=== PATIENT | female | born 1955 | race Caucasian/White ===

== ENCOUNTER 2020-02-25 12:50 | Emergency (ER) | payer OTHER ==
--- NOTE | 2020-02-25 14:06 | RAD REPORT ---
EXAM DESCRIPTION: RAD - Chest Single View - 02/25/2020 2:01 pm CLINICAL HISTORY: weakness, lethargy, chest discomfort COMPARISON: October 31, 2019 TECHNIQUE: AP portable chest image was obtained 02/25/2020 2:01 pm . FINDINGS: Lung volumes are decreased compared to the prior study. Right base atelectasis is present. Right base costophrenic angle blunting is present believed be chronic. No peripheral mass consolidat ion confirmed. Heart and vasculature are normal. No measurable pleural effusion and no pneumothorax. No acute bony abnormality seen. No acute aortic findings suspected. IMPRESSION: No acute cardiopulmonary process. No significant change from comparison.
[2020-02-25 14:29] LABS: Absolute Lymphocytes (CBC) 1.2 K/uL (0.7-4.9); Basophils % 0.7 % (0-1.3); Hematocrit 41.8 % (36.0-45.0); Lymphocytes % 15.5 % (15.3-44.8); MPV 8.6 fL (7.6-11.3); RBC Red Blood Cell Count 4.75 M/uL (3.86-4.86)
[2020-02-25 14:30] LABS: Protime INR 0.92
[2020-02-25 14:41] LABS: ALT/SGPT 50 U/L (12-78); AST/SGOT 36 U/L (15-37); Albumin 4.1 g/dL (3.4-5.0); Alkaline Phosphatase 107 U/L (45-117); BUN Blood Urea Nitrogen 10 mg/dL (7-18); Bicarbonate 31 mmol/L (21-32); Bilirubin Direct < 0.1 mg/dL (0-0.2); Bilirubin Total 0.2 mg/dL (0.2-1.0); Glucose Level 77 mg/dL (74-106); NT PRO-BNP 228 pg/mL (<125); Potassium 4.1 mmol/L (3.5-5.1); Protein, Total 8.1 g/dL (6.4-8.2); Sodium Level 132 mmol/L (136-145); Troponin (Emerg Dept Use Only) < 0.02 ng/mL (0.0-0.045)
--- NOTE | 2020-02-25 15:43 | RAD REPORT ---
EXAM DESCRIPTION: CT - Head Brain Wo Cont - 02/25/2020 3:37 pm CLINICAL HISTORY: WEAKNESS COMPARISON: No comparisons TECHNIQUE: Axial 5 mm thick images of the head were obtained without IV contrast. All CT scans are performed using dose optimization technique as appropriate and may include automated exposure control or mA/KV adjustment according to patient size. FINDINGS: No intracranial hemorrhage, mass, edema or shift of mid-line structures. No acute infarcti on changes seen. No abnormal extra-axial fluid collections. Ventricles are normal. Mastoid air cells and visualized portions of the paranasal sinuses are clear. No acute bony findings. IMPRESSION: Negative non-contrast CT head examination.
--- NOTE | 2020-02-25 16:13 | ER ---
Nurse's Notes [facility] Name: Audrey Rushing Age: 64 yrs Sex: Female : 1955 Arrival Date: 02/25/2020 Time: 12:52 Bed 5 Private MD: Diagnosis: Malaise and fatigue Presentation: 02/24 13:08 Chief complaint: Patient states: Feeling lethargic, nausea after eating, denies fever ph or pain, reports that symptoms began last night. Coronavirus screen: Client denies travel out of the [place] in the last 14 days. At this time, the client does not indicate any symptoms associated with coronavirus-19. Ebola Screen: No symptoms or risks identified at this time. Initial Sepsis Screen: Does the patient meet any 2 criteria? No. Patient's initial sepsis screen is negative. Does the patient have a suspected source of infection? No. Patient's initial sepsis screen is negative. Risk Assessment: Do you want to hurt yourself or someone else? Patient reports no desire to harm self or others. Onset of symptoms was February 25, 2020. 13:08 Method Of Arrival: Ambulatory ph 13:08 Acuity: DHEERAJ 3 ph Historical: - Allergies: 13:17 TETRACYCLINES; ph 13:17 Demerol; ph - Home Meds: 13:17 Strattera oral oral [Active]; Invega oral oral [Active]; ph - PMHx: 13:17 Bipolar disorder; ph - Immunization history:: Adult Immunizations unknown. - Social history:: Smoking status: Patient reports the use of cigarette tobacco products, denies chronic smoking, but will smoke occasionally. Screenin:14 Abuse screen: Denies threats or abuse. Denies injuries from another. Nutritional ph screening: No deficits noted. Tuberculosis screening: No symptoms or risk factors identified. Fall Risk None identified. Assessment: 13:54 General: Appears in no apparent distress. comfortable, slender, well groomed, Behavior ph is calm, cooperative, appropriate for age, Reports fatigue for 12-24 hours, Denies fever. Pain: Denies pain. Neuro: Level of Consciousness is awake, alert, obeys commands, Oriented to person, place, time, situation. Cardiovascular: Reports fatigue, lightheadedness, nausea, Denies chest pain, palpitations, shortness of breath, vomiting, Capillary refill < 3 seconds in bilateral fingers Patient's skin is warm and dry. Respiratory: Airway is patent Respiratory effort is even, unlabored, Respiratory pattern is regular, symmetrical. GI: Abdomen is flat, non-distended, Reports intolerance of food, nausea, Patient currently denies abdominal pain, diarrhea, vomiting. : No signs and/or symptoms were reported regarding the genitourinary system. Derm: Skin is intact, Skin is pink, warm \T\ dry. Musculoskeletal: Circulation, motion, and sensation intact. Range of motion: intact in all extremities. 14:30 Reassessment: Patient appears in no apparent distress at this time. Patient and/or ph family updated on plan of care and expected duration. Pain level reassessed. Patient is alert, oriented x 3, equal unlabored respirations, skin warm/dry/pink. Vital Signs: 13:08 BP 147 / 104; Pulse 76; Resp 16; Temp 97.0; Pulse Ox 100% on R/A; Weight 61.23 kg; ph Height 5 ft. 3 in. (160.02 cm); 14:31 BP 133 / 102; Pulse 75; Resp 18; Pulse Ox 98% on R/A; ph 15:59 BP 133 / 93; Pulse 76; Resp 18; Pulse Ox 99% on R/A; ph 13:08 Body Mass Index 23.91 (61.23 kg, 160.02 cm) ph ED Course: 12:52 Patient arrived in ED. ds1 13:06 Nahum Allen PA is PHCP. [facility] 13:06 Alex Leal MD is Attending Physician. [facility] 13:08 Gail Gleason, DARREN is Primary Nurse. ph 13:14 Triage completed. ph 13:15 Patient has correct armband on for positive identification. Bed in low position. Call ph light in reach. Side rails up X 1. Pulse ox on. NIBP on. Door closed. Warm blanket given. Head of bed elevated. 13:15 Arm band placed on Patient placed in an exam room. ph 14:01 XRAY Chest (1 view) In Process Unspecified. EDMS 14:15 Urine collected: clean catch specimen, clear, EKG done, by ED staff, reviewed by Nahum Bernadine NAYAK. 14:15 Initial lab(s) drawn, by me, sent to lab. Inserted saline lock: 22 gauge in right ph forearm, using aseptic technique. Blood collected. 15:37 CT Head Brain wo Cont In Process Unspecified. EDMS 16:01 No provider procedures requiring assistance completed. ph 16:39 IV discontinued, intact, bleeding controlled, No redness/swelling at site. Pressure ph dressing applied. Administered Medications: No medications were administered Outcome: 16:13 Discharge ordered by . [facility] 16:39 Discharged to home ambulatory. ph 16:39 Condition: good 16:39 Discharge instructions given to patient, Instructed on discharge instructions, follow up and referral plans. Demonstrated understanding of instructions, follow-up care. 16:39 Patient left the ED. ph Signatures: Dispatcher [employer] EDMS Nahum Allen PA PA jmm Sanford, Demi ds1 Gail Gleason RN RN Francisca Carter 3 Corrections: (The following items were deleted from the chart) 14:31 14:30 BP 132 / 78; Pulse 71bpm; Resp 18bpm; Pulse Ox 99% RA; Temp 97.2F; ph ph
--- NOTE | 2020-02-25 16:13 | EDPHYS ---
Physician Documentation [facility] Name: Audrey Rushing Age: 64 yrs Sex: Female : 1955 Arrival Date: 02/25/2020 Time: 12:52 Bed 5 Private MD: ED Physician Alex Leal HPI: 02/24 13:43 This 64 yrs old Female presents to ER via Ambulatory with complaints of jmm lethargic, Cant Eat. 13:43 This is a 64 year old female with a history of bipolar disorder that presents to the ED jm with complaints of generalized weakness, decreased appetite. Patient denies unilateral weakness, chest pain, shortness of breath, abdominal pain, or dysuria. . Onset: The symptoms/episode began/occurred gradually, last night. The patient has not experienced similar symptoms in the past. Historical: - Allergies: 13:17 TETRACYCLINES; ph 13:17 Demerol; ph - Home Meds: 13:17 Strattera oral oral [Active]; Invega oral oral [Active]; ph - PMHx: 13:17 Bipolar disorder; ph - Immunization history:: Adult Immunizations unknown. - Social history:: Smoking status: Patient reports the use of cigarette tobacco products, denies chronic smoking, but will smoke occasionally. ROS: 13:43 Constitutional: Positive for fatigue, malaise. jmm 13:43 Respiratory: Negative for cough, shortness of breath, wheezing. 13:43 Abdomen/GI: Negative for abdominal pain, nausea and vomiting. 13:43 Neuro: Positive for weakness. 13:43 All other systems are negative. Exam: 13:43 Constitutional: This is a well developed, well nourished patient who is awake, alert, jmm and in no acute distress. Head/Face: atraumatic. Eyes: EOMI, no conjunctival erythema appreciated ENT: Moist Mucus Membranes Neck: Trachea midline, Supple Chest/axilla: Normal chest wall appearance and motion. Cardiovascular: Regular rate and rhythm. No edema appreciated Respiratory: Normal respirations, no respiratory distress appreciated Abdomen/GI: Non distended, soft Back: Normal ROM Skin: General appearance color normal MS/ Extremity: Moves all extremities, no obvious deformities appreciated, no edema noted to the lower extremities Neuro: Awake and alert, normal gait Psych: Behavior is normal, Mood is normal, Patient is cooperative and pleasant 14:26 ECG was reviewed by the Attending Physician. [facility] Vital Signs: 13:08 BP 147 / 104; Pulse 76; Resp 16; Temp 97.0; Pulse Ox 100% on R/A; Weight 61.23 kg; ph Height 5 ft. 3 in. (160.02 cm); 14:31 BP 133 / 102; Pulse 75; Resp 18; Pulse Ox 98% on R/A; ph 15:59 BP 133 / 93; Pulse 76; Resp 18; Pulse Ox 99% on R/A; ph 13:08 Body Mass Index 23.91 (61.23 kg, 160.02 cm) ph MDM: 13:43 Patient medically screened. [facility] 16:11 Data reviewed: vital signs, nurses notes. Counseling: I had a detailed discussion with [facility] the patient and/or guardian regarding: the historical points, exam findings, and any diagnostic results supporting the discharge/admit diagnosis, lab results, radiology results, the need for outpatient follow up, to return to the emergency department if symptoms worsen or persist or if there are any questions or concerns that arise at home. ED course: Patient is alert and non toxic in appearance in the ED. Patient is advised to follow up with pcp and otherwise given strict return precautions. Patient understood and agrees with the plan of care. . 02/24 13:48 Order name: Basic Metabolic Panel; Complete Time: 14:41 [facility] 02/24 13:48 Order name: CBC with Diff; Complete Time: 14:34 [facility] 02/24 13:48 Order name: LFT's; Complete Time: 14:41 [facility] 02/24 13:48 Order name: Magnesium; Complete Time: 14:42 [facility] 02/24 13:48 Order name: NT PRO-BNP; Complete Time: 14:41 [facility] 02/24 13:48 Order name: PT-INR; Complete Time: 14:34 [facility] 02/24 13:48 Order name: Troponin (emerg Dept Use Only); Complete Time: 14:41 [facility] 02/24 13:48 Order name: XRAY Chest (1 view); Complete Time: 14:16 [facility] 02/24 13:48 Order name: EKG; Complete Time: 13:49 [facility] 02/24 13:48 Order name: Cardiac monitoring; Complete Time: 14:27 [facility] 02/24 13:48 Order name: EKG - Nurse/Tech; Complete Time: 14:27 [facility] 02/24 13:48 Order name: IV Saline Lock; Complete Time: 14:27 [facility] 02/24 13:48 Order name: Labs collected and sent; Complete Time: 14:27 [facility] 02/24 14:46 Order name: CT Head Brain wo Cont; Complete Time: 15:47 [facility] 02/24 13:48 Order name: O2 Per Protocol; Complete Time: 14: [facility] 02/24 13:48 Order name: O2 Sat Monitoring; Complete Time: 14: [facility] 02/24 13:48 Order name: Urine Dipstick-Ancillary (obtain specimen); Complete Time: : [facility] EC: Rate is 82 beats/min. Rhythm is regular. QRS [place] is Normal. PA interval is normal. QRS jmm interval is normal. QT interval is normal. No Q waves. T waves are Normal. No ST changes noted. Reviewed by me. Administered Medications: No medications were administered Disposition: 02/25/20 16:13 Discharged to Home. Impression: Malaise and fatigue. - Condition is Stable. - Discharge Instructions: Fatigue. - Medication Reconciliation Form, Thank You Letter, Antibiotic Education, Prescription Opioid Use form. - Follow up: Private Physician; When: 2 - 3 days; Reason: Recheck today's complaints, Continuance of care, Re-evaluation by your physician. Signatures: Dispatcher [employer] EDMS Nahum Allen PA PA jmm Hall, Patricia RN RN ph Corrections: (The following items were deleted from the chart) 16:39 16:13 02/25/2020 16:13 Discharged to Home. Impression: Malaise and fatigue. Condition ph is Stable. Forms are Medication Reconciliation Form, Thank You Letter, Antibiotic Education, Prescription Opioid Use. Follow up: Private Physician; When: 2 - 3 days; Reason: Recheck today's complaints, Continuance of care, Re-evaluation by your physician. amy
[2020-02-25 17:20] VITALS: TEMP 97
[2020-02-25 17:25] VITALS: BP 133/93; O2SAT 99
== END 2020-02-25 16:39 | disposition home or self-care (01) ==
LOC: ER 12:50
DX: R53.81 Other malaise (principal); R53.83 Other fatigue; F31.9 Bipolar disorder, unspecified; F17.210 Nicotine dependence, cigarettes, uncomplicated; Z88.3 Allergy status to other anti-infective agents; Z88.5 Allergy status to narcotic agent
CPT/HCPCS: 36415; 70450; 71045; 80048; 80076; 83735; 83880; 84484; 85025; 85610; 93005; 99284

== ENCOUNTER 2021-03-22 02:50 | Emergency (ER) | payer OTHER ==
[2021-03-22 03:41] LABS: Protime INR 0.91
[2021-03-22 03:42] LABS: Absolute Lymphocytes (CBC) 1.2 K/uL (0.7-4.9); Basophils % 0.6 % (0-1.3); Hematocrit 36.8 % (36.0-45.0); Lymphocytes % 12.1 % (15.3-44.8); RBC Red Blood Cell Count 4.19 M/uL (3.86-4.86)
[2021-03-22 04:19] LABS: ALT/SGPT 29 U/L (12-78); AST/SGOT 22 U/L (15-37); Albumin 3.5 g/dL (3.4-5.0); Alkaline Phosphatase 104 U/L (45-117); BUN Blood Urea Nitrogen 11 mg/dL (7-18); Bicarbonate 27 mmol/L (21-32); Bilirubin Direct < 0.1 mg/dL (0-0.2); Bilirubin Total 0.2 mg/dL (0.2-1.0); Glucose Level 96 mg/dL (74-106); Magnesium 1.8 mg/dL (1.8-2.4); NT PRO-BNP 106 pg/mL (<125); Protein, Total 7.5 g/dL (6.4-8.2); Sodium Level 142 mmol/L (136-145); Troponin (Emerg Dept Use Only) < 0.02 ng/mL (0.0-0.045)
--- NOTE | 2021-03-22 04:46 | EDPHYS ---
Physician Documentation [facility] Name: Audrey Rushing Age: 65 yrs Sex: Female : 1955 Arrival Date: 03/22/2021 Time: 02:51 Bed 2 Private MD: ED Physician Brianda Daniels HPI: 03/22 03:26 This 65 yrs old Female presents to ER via EMS with complaints of Breathing sp3 Difficulty. 03:26 65-year-old female with a history of bipolar disease presents to the ED with cough and sp3 shortness of breath which started approximately an hour prior to arrival. Patient went to bed with no symptoms. Patient states that she awoke with a mild cough and mild shortness of breath. She denies chest pain, fever, headache, neck pain, chest pain, abdominal pain, nausea, vomiting, diarrhea, syncope, focal neuro deficit, rash, known sick contacts, known COVID-19 contacts, any other symptoms at this time. Patient did not receive COVID-19 vaccine. All other ROS are negative.. Historical: - Allergies: 02:57 Demerol; bb 02:57 TETRACYCLINES; bb 02:57 Strattera; bb - Home Meds: 02:57 Unable to obtain [Active]; bb - PMHx: 02:57 Bipolar disorder; bb - Immunization history:: Adult Immunizations up to date, pt states she is Covid vaccinated. - Social history:: Smoking status: Patient reports the use of cigarette tobacco products, smokes one-half pack cigarettes per day, Smoking status: Patient reports the use of cigarette tobacco products, "about a pack a week'. ROS: 03:27 Constitutional: Negative for fever, chills, and weight loss, Eyes: Negative for injury, sp3 pain, redness, and discharge, ENT: Negative for injury, pain, and discharge, Neck: Negative for injury, pain, and swelling, Cardiovascular: Negative for chest pain, palpitations, and edema, Abdomen/GI: Negative for abdominal pain, nausea, vomiting, diarrhea, and constipation, Back: Negative for injury and pain, MS/Extremity: Negative for injury and deformity, Skin: Negative for injury, rash, and discoloration, Neuro: Negative for headache, weakness, numbness, tingling, and seizure, Psych: Negative for depression, anxiety, suicide ideation, homicidal ideation, and hallucinations, Allergy/Immunology: Negative for hives, rash, and allergies, Endocrine: Negative for neck swelling, polydipsia, polyuria, polyphagia, and marked weight changes. 03:27 All other systems are negative. Exam: 03:28 Constitutional: This is a well developed, well nourished patient who is awake, alert, sp3 and in no acute distress. Head/Face: Normocephalic, atraumatic. Eyes: Pupils equal round and reactive to light, extra-ocular motions intact. Lids and lashes normal. Conjunctiva and sclera are non-icteric and not injected. Cornea within normal limits. Periorbital areas with no swelling, redness, or edema. ENT: Nares patent. No nasal discharge, no septal abnormalities noted. External auditory canals are clear. Oropharynx with no redness, swelling, or masses, exudates, or evidence of obstruction, uvula midline. Mucous membranes moist. Neck: Trachea midline, no thyromegaly or masses palpated, and no cervical lymphadenopathy. Supple, full range of motion without nuchal rigidity, or vertebral point tenderness. No Meningismus. Chest/axilla: Normal chest wall appearance and motion. Nontender with no deformity. No lesions are appreciated. Cardiovascular: Regular rate and rhythm with a normal S1 and S2. No gallops, murmurs, or rubs. Normal PMI, no JVD. No pulse deficits. Abdomen/GI: Soft, non-tender, with normal bowel sounds. No distension or tympany. No guarding or rebound. No evidence of tenderness throughout. Back: No spinal tenderness. No costovertebral tenderness. Full range of motion. Skin: Warm, dry with normal turgor. Normal color with no rashes, no lesions, and no evidence of cellulitis. MS/ Extremity: Pulses equal, no cyanosis. Neurovascular intact. Full, normal range of motion. Neuro: Awake and alert, GCS 15, oriented to person, place, time, and situation. Cranial nerves II-XII grossly intact. Motor strength 5/5 in all extremities. Sensory grossly intact. Cerebellar exam normal. Normal gait. 03:28 ECG was reviewed by the Attending Physician. EKG demonstrates sinus tachycardia at 100 bpm with normal intervals, normal QRS, normal axis, normal ST/T-segment's without evidence of ischemia. Normal EKG. 03:28 Respiratory: Scattered wheeze otherwise negative.. Vital Signs: 02:54 BP 130 / 99; Pulse 119; Resp 18 S; Temp 97.5(O); Pulse Ox 96% on R/A; Weight 68.04 kg bb (R); Height 5 ft. 3 in. (160.02 cm) (R); 03:15 BP 105 / 84; Pulse 114; Resp 18; Pulse Ox 98% on R/A; tw5 04:38 BP 122 / 72; Pulse 84; Pulse Ox 96% on R/A; tw5 04:56 BP 111 / 66; Pulse 106; Resp 18; Pulse Ox 96% on R/A; tw5 02:54 Body Mass Index 26.57 (68.04 kg, 160.02 cm) bb MDM: 03:00 Patient medically screened. sp3 03:29 Data reviewed: vital signs, nurses notes. ED course: 65-year-old female with mild sp3 shortness of breath and cough. Will obtain chest x-ray, EKG, laboratory values, general observation. I am not highly suspicious for acute coronary syndrome, PE, pneumonia, sepsis, shock, metabolic derangement, GI etiology, vascular compromise including dissection and aneurysm, any other critical illness at this time. Vital signs are normal and pulse rate is in the 90s upon my evaluation. Pulse oxygenation is 98% on room air. Disposition based on patient course and data return.. 04:43 ED course: Chest x-ray, laboratory values and EKG all reviewed. COVID-19 test is sp3 negative. At this time I not believe patient is having a significant emergency including ACS, PE, sepsis, pneumonia, any other critical findings. Patient is resting comfortably with normal vital signs and normal pulse oxygenation. Possible viral syndrome. Will discharge patient home with follow-up to PCP.. 03/22 03:32 Order name: SARS-COV-2 RT PCR; Complete Time: 04:40 EDMS 03/22 03:33 Order name: Basic Metabolic Panel; Complete Time: 04:40 EDMS 03/22 03:33 Order name: Liver (Hepatic) Function; Complete Time: 04:40 EDMS 03/22 03:33 Order name: Troponin (Emerg Dept Use Only); Complete Time: 04:40 EDMS 03/22 03:33 Order name: NT PRO-BNP; Complete Time: 04:40 EDMS 03/22 03:33 Order name: Magnesium; Complete Time: 04:40 EDMS 03/22 03:01 Order name: EKG; Complete Time: 07:10 sp3 03/22 03:01 Order name: Cardiac monitoring; Complete Time: 03:18 sp3 03/22 03:01 Order name: EKG - Nurse/Tech; Complete Time: 03:18 sp3 03/22 03:01 Order name: IV Saline Lock; Complete Time: 03:18 sp3 03/22 03:01 Order name: Labs collected and sent; Complete Time: 03:19 sp3 03/22 03:01 Order name: O2 Per Protocol; Complete Time: 03:19 sp3 03/22 03:01 Order name: O2 Sat Monitoring; Complete Time: 03:19 sp3 03/22 03:22 Order name: Chest Single View EDMS 03/22 03:34 Order name: CBC with Automated Diff; Complete Time: 04:40 EDMS 03/22 03:34 Order name: Protime (+INR); Complete Time: 04:40 EDMS Administered Medications: No medications were administered Disposition Summary: 03/22/21 04:45 Discharge Ordered Location: Home sp3 Condition: Stable sp3 Diagnosis - Cough sp3 - Shortness of breath sp3 Followup: sp3 - With: Private Physician - When: Upon discharge from the Emergency Department - Reason: Recheck today's complaints Discharge Instructions: - Discharge Summary Sheet sp3 - Shortness of Breath, Adult sp3 Forms: - Medication Reconciliation Form sp3 - Thank You Letter sp3 Signatures: Dispatcher [employer] EDNettie Boyle RN RN Brianda Solorzano MD MD sp3 Carisa Garcia tw5
--- NOTE | 2021-03-22 04:46 | ER ---
Nurse's Notes [facility] Name: Audrey Rushing Age: 65 yrs Sex: Female : 1955 Arrival Date: 03/22/2021 Time: 02:51 Bed 2 Private MD: Diagnosis: Cough;Shortness of breath Presentation: 03/22 02:54 Chief complaint: EMS states: they were toned out for report of pt feeling shaky like bb she was going to fall when she had gotten up to go to the bathroom. Coronavirus screen: At this time, the client does not indicate any symptoms associated with coronavirus-19. Ebola Screen: No symptoms or risks identified at this time. Initial Sepsis Screen: Does the patient meet any 2 criteria? No. Patient's initial sepsis screen is negative. Does the patient have a suspected source of infection? No. Patient's initial sepsis screen is negative. Risk Assessment: Do you want to hurt yourself or someone else? Patient reports no desire to harm self or others. Onset of symptoms was March 22, 2021. 02:54 Method Of Arrival: EMS: [facility] 02:54 Acuity: DHEERAJ 3 bb Triage Assessment: 05:08 General: Appears in no apparent distress. General: Behavior is anxious. Pain: Complains tw5 of pain in " i have pain all over" Noted to be. Respiratory: Reports cough that is Onset: The symptoms/episode began/occurred gradually, the patient has mild shortness of breath. Historical: - Allergies: 02:57 Demerol; bb 02:57 TETRACYCLINES; bb 02:57 Strattera; bb - Home Meds: 02:57 Unable to obtain [Active]; bb - PMHx: 02:57 Bipolar disorder; bb - Immunization history:: Adult Immunizations up to date, pt states she is Covid vaccinated. - Social history:: Smoking status: Patient reports the use of cigarette tobacco products, smokes one-half pack cigarettes per day, Smoking status: Patient reports the use of cigarette tobacco products, "about a pack a week'. Screenin:15 Abuse screen: Denies threats or abuse. Denies injuries from another. Nutritional tw5 screening: No deficits noted. Tuberculosis screening: No symptoms or risk factors identified. Fall Risk Fall in past 12 months (25 points). Secondary diagnosis (15 points) IV access (20 points). Ambulatory Aid- Gait- Weak (10 pts.). Mental Status- Oriented to own ability (0 pts). Assessment: 02:52 General: Reports " I was in my bed and I felt like I couldn't breath. I was in my dawna tw5 size bed and I just felt like I couldn't breath.". Cardiovascular: Heart tones S1 S2 present. Cardiovascular: Rhythm is sinus tachycardia. Respiratory: Airway is patent Trachea midline Respiratory effort is even, unlabored, Breath sounds are coarse bilaterally. in right upper lobe, left upper lobe, left posterior upper lobe and right posterior upper lobe Parent/caregiver reports the patient having shortness of breath at rest cough that is hacking. 03:15 Neuro: Level of Consciousness is awake, alert, obeys commands. tw5 03:17 General: Reports "I am so tired, why cannot you let me sleep" Patient stating she wants tw5 a warm blanket, pillow and lights off " These lights are too bright.". 03:43 General: Behavior is agitated, anxious. tw5 04:35 Reassessment: Patient appears in no apparent distress at this time. No changes from tw5 previously documented assessment. General: "I am just so cold in here." extra warm blankets given . 04:54 General: Patient calling a friend to get a ride home. tw5 Vital Signs: 02:54 BP 130 / 99; Pulse 119; Resp 18 S; Temp 97.5(O); Pulse Ox 96% on R/A; Weight 68.04 kg bb (R); Height 5 ft. 3 in. (160.02 cm) (R); 03:15 BP 105 / 84; Pulse 114; Resp 18; Pulse Ox 98% on R/A; tw5 04:38 BP 122 / 72; Pulse 84; Pulse Ox 96% on R/A; tw5 04:56 BP 111 / 66; Pulse 106; Resp 18; Pulse Ox 96% on R/A; tw5 02:54 Body Mass Index 26.57 (68.04 kg, 160.02 cm) ED Course: 02:51 Patient arrived in ED. tw5 02:52 Brianda Daniels MD is Attending Physician. sp3 02:57 Triage completed. bb 02:57 Arm band placed on Patient placed in an exam room, on a stretcher, on pulse oximetry. 02:58 EKG done, by ED staff, reviewed by Brianda Daniels MD. tw 03:15 Carisa Garcia is Primary Nurse. tw 03:15 Patient has correct armband on for positive identification. Placed in gown. Bed in low tw5 position. Call light in reach. Side rails up X 1. color television console monitor on. Pulse ox on. NIBP on. Door closed. Noise minimized. Lights dimmed. Moved to private room. Warm blanket given. Verbal reassurance given. Assisted to bedside commode. 03:15 Initial lab(s) drawn, by me, by ED staff, COVID swab sent to lab. Urine collected: clean catch specimen. Inserted saline lock: 20 gauge in right wrist, using aseptic technique. Blood collected. 03:32 Chest Single View In Process Unspecified. EDMS 03:43 CBC with Automated Diff Sent. tw5 03:43 NT PRO-BNP Sent. tw5 03:43 Magnesium Sent. tw5 03:43 Liver (Hepatic) Function Sent. tw5 03:43 Troponin (Emerg Dept Use Only) Sent. tw5 03:43 Basic Metabolic Panel Sent. tw5 03:43 SARS-COV-2 RT PCR Sent. tw 05:07 No provider procedures requiring assistance completed. IV discontinued, intact, tw5 bleeding controlled, No redness/swelling at site. Pressure dressing applied. Administered Medications: No medications were administered Outcome: 04:45 Discharge ordered by . sp3 05:07 Discharged to home Cab called for patient. tw 05:07 Condition: good 05:07 Discharge instructions given to patient, Instructed on discharge instructions, follow up and referral plans. Demonstrated understanding of instructions. 05:09 Patient left the ED. Signatures: Dispatcher [employer] Nettie Hoover RN RN Brianda Solorzano MD MD sp3 Carisa Garcia tw
[2021-03-22 05:16] VITALS: TEMP 97.5
[2021-03-22 05:18] VITALS: O2SAT 96
[2021-03-22 05:20] VITALS: BP 111/66
--- NOTE | 2021-03-22 07:20 | RAD REPORT ---
EXAM DESCRIPTION: RAD - Chest Single View - 03/22/2021 3:32 am CLINICAL HISTORY: SOB COMPARISON: Chest Single View dated 02/25/2020; Chest Pa And Lat (2 Views) dated 10/31/2019; CHEST PA AND LAT 2 VIEW dated 01/26/2010; CHEST SINGLE VIEW dated 11/12/2005 FINDINGS: Lines: None. Lungs: No evidence of edema or pneumonia. Pleural: No significant pleural effusions or pneumothorax. Cardiac: The heart size is within normal limits. Bones: No acute fractures. Other: IMPRESSION: No acute cardiopulmonary disease.
--- NOTE | 2021-03-24 20:45 | EKG ---
Test Date: 2021-03-22 Test Time: 02:55:21 Physical Geographer: MELISSA MEASUREMENT RESULTS: Intervals: Rate: 100 GA: 176 QRSD: 82 QT: 336 QTc: 433 [place]: P: 67 GA: 176 QRS: 28 T: 70 INTERPRETIVE STATEMENTS: Normal sinus rhythm Normal ECG Compared to ECG 02/25/2020 14:12:37 No significant changes Electronically Signed On 03-24-21 20:36:00 SCALPER OPERATOR by Fawad Frederick
== END 2021-03-22 05:09 | disposition home or self-care (01) ==
LOC: ER 02:50
DX: R06.02 Shortness of breath (principal); R05.9 Cough, unspecified; F31.9 Bipolar disorder, unspecified; F17.210 Nicotine dependence, cigarettes, uncomplicated; Z88.6 Allergy status to analgesic agent; Z88.1 Allergy status to other antibiotic agents; Z88.8 Allergy status to other drugs, medicaments and biological substances
CPT/HCPCS: 93005; 85025; 80048; 36415; 83735; 85610; 80076; 84484; 83880; 71045; 99285; U0003

== ENCOUNTER 2021-09-15 06:24 | Emergency (ER) | payer OTHER ==
--- NOTE | 2021-09-15 06:52 | EDPHYS ---
Physician Documentation [facility] Name: Audrey Rushing Age: 66 yrs Sex: Female : 1955 Arrival Date: 09/15/2021 Time: 06:29 Bed 3 Private MD: ED Physician Alex Leal HPI: 09/15 06:53 This 66 yrs old Female presents to ER via EMS with complaints of Paranoia. kdr 06:53 The patient presents to the emergency department with anxiety. Onset: The kdr symptoms/episode began/occurred suddenly. Past psychiatric history: Prior diagnosis: bipolar disorder. Associated signs and symptoms: The patient has no apparent associated signs or symptoms. Severity of symptoms: At their worst the symptoms were mild in the emergency department the symptoms are unchanged. The patient has experienced similar episodes in the past, multiple times. It is unknown whether or not the patient has recently seen a physician. Range of the patient's sister the patient had an argument with her boyfriend yesterday and subsequently becomes upset and invariably ends up in the ED. According to her this is happened before several times. Patient currently has no acute medical issue which needs to be addressed. Historical: - Allergies: 06:45 Demerol; sm5 06:45 Strattera; sm5 06:45 TETRACYCLINES; sm5 - PMHx: 06:45 Bipolar disorder; sm5 - Immunization history:: Client reports having NOT received the Covid vaccine. - Social history:: Smoking status: Patient reports the use of cigarette tobacco products, denies chronic smoking, but will smoke occasionally. ROS: 06:53 Constitutional: Negative for fever, chills, and weight loss, Eyes: Negative for injury, kdr pain, redness, and discharge, ENT: Negative for injury, pain, and discharge, Neck: Negative for injury, pain, and swelling, Cardiovascular: Negative for chest pain, palpitations, and edema, Respiratory: Negative for shortness of breath, cough, wheezing, and pleuritic chest pain, Abdomen/GI: Negative for abdominal pain, nausea, vomiting, diarrhea, and constipation, Back: Negative for injury and pain, : Negative for injury, bleeding, discharge, and swelling, MS/Extremity: Negative for injury and deformity, Skin: Negative for injury, rash, and discoloration, Neuro: Negative for headache, weakness, numbness, tingling, and seizure activity. Allergy/Immunology: Negative for hives, rash, and allergies, Endocrine: Negative for neck swelling, polydipsia, polyuria, polyphagia, and marked weight changes, Hematologic/Lymphatic: Negative for swollen nodes, abnormal bleeding, and unusual bruising. 06:53 Psych: Positive for Exam: 06:53 Constitutional: This is a well developed, well nourished patient who is awake, alert, kdr and in no acute distress. 06:53 Psych: exam not indicated, Behavior/mood is pleasant, cooperative, anxious, Affect is flat, Patient has no thoughts/intents to harm self or others. Judgement / Insight is impaired. Memory is normal. Delusions/hallucinations are not present. Vital Signs: 06:44 BP 123 / 75; Pulse 93; Resp 17; Temp 97.9(O); Pulse Ox 98% on R/A; Weight 72.57 kg; 5 Height 5 ft. 3 in. (160.02 cm); 06:44 Body Mass Index 28.34 (72.57 kg, 160.02 cm) [facility] MDM: 06:51 Patient medically screened. kdr 06:53 Data reviewed: vital signs, nurses notes. Counseling: I had a detailed discussion with kdr the patient and/or guardian regarding: the historical points, exam findings, and any diagnostic results supporting the discharge/admit diagnosis, the need for outpatient follow up. Administered Medications: No medications were administered Disposition Summary: 09/15/21 06:51 Discharge Ordered Location: Home kdr Problem: new kdr Symptoms: are unchanged kdr Condition: Stable kdr Diagnosis - Bipolar disorder, unspecified kdr Followup: kdr - With: Private Physician - When: 2 - 3 days - Reason: If symptoms return, Further diagnostic work-up, Recheck today's complaints, Continuance of care, Re-evaluation by your physician Discharge Instructions: - Discharge Summary Sheet kdr - Bipolar 1 Disorder kdr - Managing Bipolar Disorder kdr Forms: - Medication Reconciliation Form kdr - Thank You Letter kdr Signatures: Alex Leal MD MD kdr Elda Zhu RN RN 5
--- NOTE | 2021-09-15 06:52 | ER ---
Nurse's Notes [facility] Name: Audrey Rushing Age: 66 yrs Sex: Female : 1955 Arrival Date: 09/15/2021 Time: 06:29 Bed 3 Private MD: Diagnosis: Bipolar disorder, unspecified Presentation: 09/15 06:44 Chief complaint: Patient states: she was trying to go to bed last night and kept dozing sm5 off but then waking up and states she "felt off" and couldn't think straight. Coronavirus screen: Vaccine status: Patient reports being unvaccinated. Ebola Screen: No symptoms or risks identified at this time. Initial Sepsis Screen: Does the patient meet any 2 criteria? No. Patient's initial sepsis screen is negative. Does the patient have a suspected source of infection? No. Patient's initial sepsis screen is negative. Risk Assessment: Do you want to hurt yourself or someone else? Patient reports no desire to harm self or others. Onset of symptoms was September 15, 2021. 06:44 Method Of Arrival: EMS: [facility] 06:44 Acuity: DHEERAJ 3 5 Triage Assessment: 06:59 General: Appears in no apparent distress. Behavior is cooperative. Pain: Denies pain. sm5 Neuro: No deficits noted. Level of Consciousness is awake, alert. Cardiovascular: No deficits noted. Capillary refill < 3 seconds Patient's skin is warm and dry. Respiratory: No deficits noted. Airway is patent Trachea midline Respiratory effort is even, unlabored. Historical: - Allergies: 06:45 Demerol; sm5 06:45 Strattera; sm5 06:45 TETRACYCLINES; sm5 - PMHx: 06:45 Bipolar disorder; sm5 - Immunization history:: Client reports having NOT received the Covid vaccine. - Social history:: Smoking status: Patient reports the use of cigarette tobacco products, denies chronic smoking, but will smoke occasionally. Screenin:46 Abuse screen: Denies threats or abuse. Denies injuries from another. Nutritional sm5 screening: No deficits noted. Tuberculosis screening: No symptoms or risk factors identified. Fall Risk None identified. Assessment: 06:46 Reassessment: pt's sister's phone number: [phone]. 5 Vital Signs: 06:44 BP 123 / 75; Pulse 93; Resp 17; Temp 97.9(O); Pulse Ox 98% on R/A; Weight 72.57 kg; 5 Height 5 ft. 3 in. (160.02 cm); 06:44 Body Mass Index 28.34 (72.57 kg, 160.02 cm) [facility] ED Course: 06:29 Patient arrived in ED. ds4 06:30 Alex Leal MD is Attending Physician. kdr 06:45 Triage completed. 5 06:46 Arm band placed on right wrist. 5 06:46 Patient has correct armband on for positive identification. Bed in low position. Call [facility] light in reach. Side rails up X2. Pulse ox on. NIBP on. 06:59 No provider procedures requiring assistance completed. Patient did not have IV access [facility] during this emergency room visit. Administered Medications: No medications were administered Outcome: 06:51 Discharge ordered by . kdr 06:59 Discharged to home ambulatory. 5 06:59 Condition: stable 06:59 Discharge instructions given to patient, Instructed on discharge instructions, follow up and referral plans. Demonstrated understanding of instructions, follow-up care. 07:00 Patient left the ED. [facility] Signatures: Alex Leal MD MD kdr Dean Perkins 4 Elda Zhu, RN RN [facility]
== END 2021-09-15 07:00 | disposition home or self-care (01) ==
LOC: ER 06:24
DX: F31.9 Bipolar disorder, unspecified (principal); F17.210 Nicotine dependence, cigarettes, uncomplicated; Z88.1 Allergy status to other antibiotic agents; Z88.5 Allergy status to narcotic agent; Z88.8 Allergy status to other drugs, medicaments and biological substances
CPT/HCPCS: 99283

== ENCOUNTER 2022-11-17 09:13 | Emergency (ER) | payer OTHER ==
--- OUTSIDE RECORDS SUMMARY | 2022-11-17 09:16 | XMS REPORT | Continuity of Care Document ---
:1955 Author Organization [facility] t Address [address] [place] [address] Care Team Providers Name Role Phone Chay Cuba MD Primary Care Physician RUPESH SAHU Attending Clinician Unavailable Chay Cuba MD Attending Clinician Payers Payer Name Policy Type Policy Number Effective Date Expiration Date Alexei thomson MEDICARE PART A [id number] 2011 2024 AND B 00:00:00 00:00:00 Problems This patient has no known problems. Allergies, Adverse Reactions, Alerts Allergy Allergy Status Severity Reaction(s) Onset Inactive Treating Comm ents Source Name Type Date Date Clinician Pentazoc Propensi Active 2022-0 [place] ine ty to 3-08 Health adverse 00:00: reaction 00 s Tetracyc Propensi Active 2022-0 [place] line ty to 3-08 Health adverse 00:00: reaction 00 s Social History Social Habit Start Date Stop Date Quantity Comments Source Gender identity [facility] Sexual orientation [facility] Exposure to 2022-07-08 2022-07-18 Not sure [facility] SARS-CoV-2 (event) 00:00:00 09:15:00 Sex Ass[birth year] [facility] 00:00:00 00:00:00 Smoking Status Start Date Stop Date Source Tobacco smoking consumption unknown [facility] Medications Ordered Filled Start Stop Current Ordering Indication Dosage Frequency Signature Comments Components Source Medication Medication Date Date Medication? Clinician (SIG) Name Name diflupredna Yes [place] te 07-18 Health (Durezol) 09:31: 0.05 % 24 ophthalmic solution diclofenac 2022- No [id number] 1[drp] Q.25D Administer [place] (Voltaren) 3 04-08 9104 1 drop Health 0.1 % 00:00: 04:59 into both ophthalmic 00 :00 eyes in solution the morning and 1 drop at noon and 1 drop in the evening and 1 drop before bedtime. Combigan Yes PLACE 1 UT 0.2-0.5 % 2-17 DROP INTO Healt h ophthalmic 00:00: BOTH EYES solution 00 TWICE A DAY dorzolamide Yes INSTILL 1 U T (Trusopt) 2 2-14 DROP INTO Hea lth % 00:00: RIGHT EYE ophthalmic 00 3 TIMES A solution DAY AND INTO LEFT EYE TWICE A DAY atomoxetine Yes [facility] (Strattera) 124 Health 40 MG 00:00: capsule 00 Invega Yes UT Sustenna 11 Health 156 MG/ML 00:00: suspension 00 prefilled syringe Procedures Procedure Date / Time Performing Clinician Source Performed OCT, RETINA - OU - BOTH 2022-07-18 16:06:34 [facility] ACRIDINE ORANGE STAIN 2022-03-28 19:54:00 Chay Cuba [facility] GRAM STAIN ONLY 2022-03-28 19:54:00 Chay [facility] OPHTHALMOLOG[facility] PATHOGEN 2022-03-28 19:54:[address] [facility] MULTIPLEX PANEL CYTOLOGY 2022-03-28 19:54:00 Chay Cuab [facility] (NON-GYNECOLOGICAL) REQUEST Plan of Care Planned Activity Planned Date Details Comments Source Future Scheduled 2022-10-29 Screening for [facility] Test 23:07:39 malignant neoplasm of colon (procedure) [code = 260803765] Future Scheduled 2022-10-29 Screening for [facility] Test 23:07:39 malignant neoplasm of colon (procedure) [code = 026268178] Future Scheduled 2022-10-29 Screening for [facility] Test 23:07:39 malignant neoplasm of colon (procedure) [code = 130800322] Future Scheduled 2022-10-29 COVID-19 VACCINE (#1) [facility] Test 23:07:39 [code = COVID-19 VACCINE (#1)] Future Scheduled 2022-10-29 Hepatitis C screening [facility] Test 23:07:39 (procedure) [code = 776596663] Future Scheduled 2022-10-29 Screening for [facility] Test 23:07:39 malignant neoplasm of cervix (procedure) [code = 278916023] Future Scheduled 2022-10-29 BREAST CANCER [facility] Test 23:07:39 SCREENING [code = BREAST CANCER SCREENING] Future Scheduled 2022-10-29 Screening for [facility] Test 23:07:39 malignant neoplasm of colon (procedure) [code = 389793585] Future Scheduled 2022-10-29 Screening for [facility] Test 23:07:39 malignant neoplasm of colon (procedure) [code = 969572429] Future Scheduled 2022-10-29 SHINGLES VACCINES ([address] [facility] [place] [place] Test 23:07:39 of 2) [code = SHINGLES VACCINES (1 of 2)] Future Scheduled 2022-10-29 65+ [facility] VACCINE (1 - PCV) [code = 65+ PNEUMOCOCCAL VACCINE (1 - PCV)] Future Scheduled 2022-10-29 INFLUENZA VACCINE Method [facility] Test 23:07:39 [code = INFLUENZA VACCINE] Future Scheduled 2022-05-08 BREAST CANCER [facility] Test 15:55:12 SCREENING [code = BREAST CANCER SCREENING] Future Scheduled 2022-05-08 COLONOSCOPY SCREENING [facility] Test 15:55:12 [code = COLONOSCOPY SCREENING] Future Scheduled 2022-05-08 SHINGLES VACCINES ([address] [facility] [place] [place] Test 15:55:12 of 2) [code = SHINGLES VACCINES (1 of 2)] Future Scheduled 2022-05-08 INFLUENZA VACCINE Method [facility] Test 15:55:12 [code = INFLUENZA VACCINE] Future Scheduled 2022-05-08 65+ [facility] 15:55:12 VACCINE (1 - PCV) [code = 65+ PNEUMOCOCCAL VACCINE (1 - PCV)] Future Scheduled 2022-05-08 COVID-19 VACCINE (#1) [facility] Test 15:55:12 [code = COVID-19 VACCINE (#1)] Future Scheduled 2022-05-08 Hepatitis C screening [facility] Test 15:55:12 (procedure) [code = 390698699] Future Scheduled 2022-05-08 Screening for [facility] Test 15:55:12 malignant neoplasm of cervix (procedure) [code = 892015143] Encounters Start End Encounter Admission Attending Care Care Encounter Source Date/Time Date/Time Type Type Clinicians Facility Department ID 2022-08-17 Outpatient [facility] [id number] [place] 10:29:13 [id number] [facility] 2022-07-18 Outpatient [facility] [id number] [place] 09:17:15 [id number] [facility] 2022-07-12 Outpatient [facility] [id number] [place] 12:51:37 [id number] [facility] 2022-07-11 Outpatient [facility] [id number] [place] 16:40:53 [id number] [facility] 2022-07-04 Outpatient [facility] [id number] [place] 11:21:23 [id number] [facility] 2022-07-02 Outpatient [facility] [id number] [place] 14:46:17 [id number] [facility] 2022-08-21 2022-08-21 [id number] [place] 10:15:00 10:15:00 [facility] 2022-07-18 2022-07-18 Office [facility] [id number] [place] 09:45:00 16:07:52 [facility] [id number] [facility] [id number] 2022-07-17 2022-07-17 Outpatient [facility] [id number] [place] 09:45:00 09:45:00 [facility] 2022-03-28 2022-03-28 Lab Chay Cuba [id number] Methodi 13:55:00 14:00:[address] 3.430.2.7 Hospit a .3.688826 l .8 2022-03-28 2022-03-28 Lab Chay Cuba [id number] Methodi 13:55:00 14:00:[address] 3.430.2.7 Hospit a .3.479453 l .8 Results Test Description Test Time Test Comments Results Result Comments Source Cytology (non-gynecological) request 2022-04-02 20:59:57 Test Item Value Reference Range Interpretation Comme nts Case number (test code = [id number]) [id number] Cytology (non-gynecological) report (test See link below for PDF La b Report code = 1178) Result status (test code = 9890236) This is Final Report [facility] G10003 4858-6 [facility] [id number] 20:59:57 Test Item Value Reference Range Interpretation Comments Case number (test code = [id number]) Cytology See link below for (non-gynecological) PDF Lab Report report (test code = 1178) Result status (test code This is Final Report = [id number]) for [id number] [facility] [id number] 20:41:04 Test Item Value Reference Range Interpretation Comments Cytomegalovirus by PCR, Not-Detected Not-Detected eye (test code = 5000-5) Herpes simplex virus 1 Not-Detected Not-Detected by PCR, eye (test code = 78852-8) Herpes simplex virus 2 Not-Detected Not-Detected by PCR, eye (test code = 85214-0) Toxoplasma gondii by Not-Detected Not-Detected PCR, eye (test code = 57870-7) Varicella zoster virus Not-Detected Not-Detected by PCR, eye (test code = 73925-7) Ophthalmology pathogen See link below Demetrius e Number: multiplex panel PDF for PDF Lab [id number] (test code = 4919) Report JOSEFINA (test code = JOSEFINA) left eye vitreous [facility] [id number] 20:41:04 Test Item Value Reference Range Interpretation Comments Cytomegalovirus by PCR, Not-Detected Not-Detected eye (test code = 5000-5) Herpes simplex virus 1 Not-Detected Not-Detected by PCR, eye (test code = 30115-6) Herpes simplex virus 2 Not-Detected Not-Detected by PCR, eye (test code = 97233-3) Toxoplasma gondii by Not-Detected Not-Detected PCR, eye (test code = 82471-4) Varicella zoster virus Not-Detected Not-Detected by PCR, eye (test code = 92674-4) Ophthalmology pathogen See link below Demetrius e Number: multiplex panel (test for PDF Lab [id number] code = 4919) Report JOSEFINA (test code = JOSEFINA) [facility] [id number] 09:31:00 Test Item Value Reference Range Interpretation Comments Gram stain No WBC's or Specimen result (test organisms seen InformationSp ecimen code = 664-3) Source: Vitrec pooja washingSpecimen Site: Left Eye [facility] [id number] 09:31:00 Test Item Value Reference Range Interpretation Comments Gram stain No WBC's or Specimen result (test organisms seen InformationSp ecimen code = 664-3) Source: Vitrec pooja washingSpecimen Site: Left Eye [facility] [id number] 08:28:00 Test Item Value Reference Range Interpretation Comments Acridine orange No WBC's or Specimen stain (test organisms seen InformationSp ecimen code = 485) Source: Vitrect ladonna washingSpecimen Site: Left Eye [facility] [id number] 08:28:00 Test Item Value Reference Range Interpretation Comments Acridine orange No WBC's or Specimen stain (test organisms seen InformationSp ecimen code = 485) Source: Vitrect ladonna washingSpecimen Site: [facility] Eye [facility]
--- NOTE | 2022-11-17 09:39 | ER ---
Nurse's Notes [facility] Name: Audrey Rushing Age: 67 yrs Sex: Female : 1955 Arrival Date: 11/17/2022 Time: 09:13 Bed 20 Private MD: Diagnosis: Bipolar disorder, current episode manic without psychotic features, moderate Presentation: 11/17 09:08 Chief complaint: EMS states: patient called 911 and said that she couldn't get out of db bed and was hungry. Upon EMS arrival patient was walking around on scene. Per EMS pt ambulatory and taking psych meds. Glucose 118. Coronavirus screen: Client denies travel out of the [place] in the last 14 days. Ebola Screen: Patient negative for fever greater than or equal to 101.5 degrees Fahrenheit, and additional compatible Ebola Virus Disease symptoms Patient denies exposure to infectious person. Patient denies travel to an Ebola-affected area in the 21 days before illness onset. No symptoms or risks identified at this time. Initial Sepsis Screen: Does the patient meet any 2 criteria? No. Patient's initial sepsis screen is negative. Does the patient have a suspected source of infection? No. Patient's initial sepsis screen is negative. Risk Assessment: Do you want to hurt yourself or someone else? Patient reports no desire to harm self or others. Onset of symptoms was November 17, 2022. 09:08 Method Of Arrival: EMS: [facility] db 09:08 Acuity: DHEERAJ 3 db Triage Assessment: 09:21 General: Appears in no apparent distress. Behavior is calm, cooperative. Pain: Denies db pain. Historical: - Allergies: : TETRACYCLINES; db - PMHx: 09: Bipolar disorder; Emphysema; db - Immunization history:: Adult Immunizations unknown. - Social history:: Smoking status: unknown. Screenin: [facility] ED Fall Risk Assessment (Adult) History of falling in the last 3 months, db including since admission No falls in past 3 months (0 pts) Confusion or Disorientation Yes (5 pts) Intoxicated or Sedated No (0 pts) Impaired Gait No (0 pts) Mobility Assist Device Used No (0 pt) Altered Elimination No (0 pt) Score/Fall Risk Level 3 or more points = High Risk Oriented to surroundings, Maintained a safe environment. Abuse screen: Denies threats or abuse. Denies injuries from another. Nutritional screening: No deficits noted. Tuberculosis screening: No symptoms or risk factors identified. Assessment: 09:16 Reassessment: patient provided food and water. db 09:35 Reassessment: Patient appears in no apparent distress at this time. family is at db bedside. 09:58 Reassessment: Patient appears in no apparent distress at this time. Patient and/or db family updated on plan of care and expected duration. Pain level reassessed. Patient is alert, oriented x 3, equal unlabored respirations, skin warm/dry/pink. General: Appears in no apparent distress. comfortable, Behavior is calm, cooperative. Pain: Denies pain. Neuro: Level of Consciousness is awake, alert, obeys commands, Oriented to person, place, time, situation. Vital Signs: 09:08 BP 113 / 67; Pulse 94; Resp 16; Temp 97.8(O); Pulse Ox 97% on R/A; db 09:58 BP 115 / 68; Pulse 95; Resp 16; Pulse Ox 100% on R/A; db ED Course: 09:15 Patient arrived in ED. sb4 09:15 Rose Martínez PA-C [facility] sb4 09:15 Maurizio Nazario MD is Attending Physician. sb4 09:16 Marilee Burnette RN is Primary Nurse. db 09:21 Triage completed. db 09:21 Arm band placed on Patient placed in an exam room. db 09:59 No provider procedures requiring assistance completed. Patient did not have IV access db during this emergency room visit. 10:00 Patient has correct armband on for positive identification. Bed in low position. Call db light in reach. Side rails up X 1. Administered Medications: No medications were administered Medication: 10:00 VIS not applicable for this client. db Outcome: 09:39 Discharge ordered by . sb4 09:59 Discharged to home ambulatory, with family. db 09:59 Condition: stable 09:59 Discharge instructions given to patient, family, Instructed on discharge instructions, follow up and referral plans. 10:00 Patient left the ED. db Signatures: Marilee Burnette RN RN Rose Lea PA-C PA-C sb4 Corrections: (The following items were deleted from the chart) 09:59 09:08 BP 113 / 67; Pulse 94bpm; Resp 16bpm; Pulse Ox 97.8% RA; Temp 97.8F Oral; db db
--- NOTE | 2022-11-17 09:39 | EDPHYS ---
Physician Documentation [facility] Name: Audrey Rushing Age: 67 yrs Sex: Female : 1955 Arrival Date: 11/17/2022 Time: 09:13 Bed 20 Private MD: ED Physician Maurizio Nazario HPI: 11/17 09:47 This 67 yrs old Female presents to ER via EMS with complaints of Anxiety. sb4 09:47 67-year-old female past medical history of bipolar disorder who presents via EMS as she sb4 called for assistance out of bed. When EMS arrived, she was walking around and stating that she needed to eat but wanted to come to the hospital to be evaluated. She has no subjective complaint upon arrival to ED. Historical: - Allergies: 09:21 TETRACYCLINES; db - PMHx: 09:21 Bipolar disorder; Emphysema; db - Immunization history:: Adult Immunizations unknown. - Social history:: Smoking status: unknown. ROS: 09:47 Constitutional: Negative for fever, chills, and weight loss, Eyes: Negative for injury, sb4 pain, redness, and discharge, Cardiovascular: Negative for chest pain, palpitations, and edema, Respiratory: Negative for shortness of breath, cough, wheezing, and pleuritic chest pain, Abdomen/GI: Negative for abdominal pain, nausea, vomiting, diarrhea, and constipation, Back: Negative for injury and pain, Skin: Negative for injury, rash, and discoloration, Neuro: Negative for headache, weakness, numbness, tingling, and seizure. 09:47 Psych: Positive for anxiety, depression, Manic episode, Negative for drug dependence, alcohol dependence, auditory hallucinations, visual hallucinations, homicidal ideation, suicide gesture, suicidal ideation. Exam: 09:47 Constitutional: This is a well developed, well nourished patient who is awake, alert, sb4 and in no acute distress. Head/Face: Normocephalic, atraumatic. Eyes: Extra-ocular motions intact. Periorbital areas with no swelling, redness, or edema. Cardiovascular: Regular rate and rhythm with a normal S1 and S2. Respiratory: Lungs have equal breath sounds bilaterally, clear to auscultation and percussion. No rales, rhonchi or wheezes noted. No increased work of breathing, no retractions or nasal flaring. Back: No spinal tenderness. No costovertebral tenderness. Full range of motion. Skin: Warm, dry with normal turgor. Normal color with no rashes, no lesions, and no evidence of cellulitis. MS/ Extremity: Pulses equal, no cyanosis. Neurovascular intact. Full, normal range of motion. Neuro: Awake and alert, GCS 15, oriented to person, place, time, and situation. Cranial nerves II-XII grossly intact. Motor strength 5/5 in all extremities. Sensory grossly intact. Cerebellar exam normal. Normal gait. 09:47 Psych: Behavior/mood is anxious, Affect is flat, Oriented to person, place, time, Patient has no thoughts/intents to harm self or others. Judgement / Insight is normal. Memory is normal. Vital Signs: 09:08 BP 113 / 67; Pulse 94; Resp 16; Temp 97.8(O); Pulse Ox 97% on R/A; db 09:58 BP 115 / 68; Pulse 95; Resp 16; Pulse Ox 100% on R/A; db MDM: 09:15 Patient medically screened. sb4 09:47 Differential Diagnosis Depression, anxiety, manic episode, schizophrenia, sb4 hallucinations. Data reviewed: vital signs, nurses notes. Historians other than the Patient: Family Member: Sister. ED course: Patient called sister upon arrival. I spoke with sister who states that patient does this sometimes. She forgets to eat but quickly improves after eating. She has been taking her medications. Sister came up to the ED and they agreed that she is stable for discharge. They will follow-up with her primary. Administered Medications: No medications were administered Disposition Summary: 11/17/22 09:39 Discharge Ordered Location: Home sb4 Condition: Stable sb4 Diagnosis - Bipolar disorder, current episode manic without psychotic features, moderate sb4 Followup: sb4 - With: Private Physician - When: Tomorrow - Reason: Recheck today's complaints, Re-evaluation by your physician Forms: - Medication Reconciliation Form sb4 - Thank You Letter sb4 - Antibiotic Education sb4 - Prescription Opioid Use sb4 - [email or web address] sb4 Signatures: Marilee Burnette RN RN Rose Lea PA-C PA-C sb4
[2022-11-17 10:12] VITALS: BP 115/68; O2SAT 100
== END 2022-11-17 10:00 | disposition home or self-care (01) ==
LOC: ER 09:13
DX: F31.12 Bipolar disorder, current episode manic without psychotic features, moderate (principal)
CPT/HCPCS: 99283

== ENCOUNTER 2023-09-08 22:44 | Emergency (ER) | payer OTHER ==
[2023-09-08] MEDS ORDERED: ONDANSETRON 4 MG/2 ML VIAL ONE (23:21)
[2023-09-08] MEDS ORDERED: METHYLPREDNISOLONE 125 MG INJ ONE (23:21)
[2023-09-08] MEDS ORDERED: IPRATROPIUM BROM 0.5MG/2.5ML ONE (23:21)
[2023-09-08] MEDS ORDERED: KETOROLAC 30 MG/ML INJ ONE (23:22)
[2023-09-08] MEDS ORDERED: methocarbamoL 500 MG TAB ONE (23:22)
[2023-09-08] MEDS ORDERED: NA CHLORIDE 0.9% 1,000 ML ONE (23:23)
[2023-09-08] MEDS ORDERED: MORPHINE 4 MG/ML SYR ONE (23:23)
[2023-09-08] MEDS ORDERED: ALBUTEROL 2.5 MG/3 ML NEB SOL ONE (23:35)
[2023-09-09 00:30] LABS: Absolute Lymphocytes (CBC) 1.5 K/uL (0.7-4.9); Absolute Monocytes 0.8 K/uL (0.1-1.3); Basophils % 0.7 % (0-1.3); Eosinophils % 0.6 % (0-4.4); Hematocrit 33.4 % (36.0-45.0); Lymphocytes % 22.9 % (15.3-44.8); MCH 28.1 pg (27.0-35.0); MCV 85.2 fL (80-100); MPV 6.4 fL (7.6-11.3); Monocytes % 12.4 % (3.3-12.3); Neutrophils % 63.4 % (41.7-73.7); Nucleated Red Blood Cells % 0.3 % (0-0); Platelets 321 thou/uL (152-406); RBC Red Blood Cell Count 3.92 M/uL (3.86-4.86); Red Cell Distribution Width 30.2 % (12.1-15.2)
[2023-09-09 00:33] LABS: PT Prothrombin Time 9.8 SECONDS (9.5-12.5); Protime INR 0.89
[2023-09-09 00:43] LABS: ALT/SGPT 24 U/L (13-56); AST/SGOT 14 U/L (15-37); Albumin/Globulin Ratio 0.9 (1.1-1.8); Alkaline Phosphatase 67 U/L (45-117); Anion Gap 7.9 mEq/L (5.0-15.0); BUN Blood Urea Nitrogen 13 mg/dL (7-18); Bicarbonate 26 mEq/L (21-32); Bilirubin Total 0.1 mg/dL (0.2-1.0); Creatine Phosphokinase 35 U/L (26-192); Globulin 3.3 g/dL (2.3-3.5); Glomerular Filtration Rate 99 ml/min (=/>90); Glucose Level 105 mg/dL (74-106); Lipase 52 U/L (13-75); Magnesium 2.1 mg/dL (1.6-2.4); NT PRO-BNP 42 pg/mL (<125); Potassium 3.9 mEq/L (3.5-5.1); Protein, Total 6.3 g/dL (6.4-8.2); Sodium Level 135 mEq/L (136-145); Troponin High Sensitivity 7.3 pg/mL (<58.9)
[2023-09-09 00:45] LABS: Bilirubin Direct < 0.1 mg/dL (0-0.2); Bilirubin Indirect, Calculated ND mg/dL (0.2-0.8)
--- NOTE | 2023-09-09 02:58 | ER ---
Nurse's Notes [facility] Name: Audrey Rushing Age: 68 yrs Sex: Female : 1955 Arrival Date: 09/08/2023 Time: 22:44 Bed 4 Private MD: Diagnosis: Acute generalized bodyaches, palpitations, dyspnea, Emphysema Presentation: 09/07 23:00 Chief complaint: Patient states: racing heart, dizziness, chest pain, pain in jw7 extremities that is burning/tingling that started tonight around 1999. Coronavirus screen: At this time, the client does not indicate any symptoms associated with coronavirus-19. Ebola Screen: No symptoms or risks identified at this time. Initial Sepsis Screen: Does the patient meet any 2 criteria? No. Patient's initial sepsis screen is negative. Does the patient have a suspected source of infection? No. Patient's initial sepsis screen is negative. Risk Assessment: Do you want to hurt yourself or someone else? Patient reports no desire to harm self or others. Onset of symptoms was September 08, 2023. 23:00 Method Of Arrival: Wheelchair jw7 23:00 Acuity: DHEERAJ 3 jw7 Triage Assessment: 23:00 General: Appears in no apparent distress. comfortable, Behavior is calm, cooperative, jw7 appropriate for age, anxious. Pain: Complains of pain in Chest pain, bilateral lower and upper extremities Pain does not radiate. Pain currently is 9 out of 10 on a pain scale. Quality of pain is described as burning, aching, tingling, throbbing, Pain began suddenly, Is continuous. EENT: No deficits noted. No signs and/or symptoms were reported regarding the EENT system. Neuro: Level of Consciousness is awake, alert, obeys commands, Oriented to person, place, time, situation, Appropriate for age. Cardiovascular: Heart tones S1 S2 present Capillary refill < 3 seconds Clubbing of nail beds is absent JVD is absent Patient's skin is warm and dry. Respiratory: Reports shortness of breath Airway is patent Trachea midline Respiratory effort is even, unlabored, Respiratory pattern is regular, symmetrical, Breath sounds are clear bilaterally. Onset: The symptoms/episode began/occurred today, the patient has mild shortness of breath. GI: Abdomen is flat, non-distended, Bowel sounds present X 4 quads. Abd is soft and non tender X 4 quads. : No deficits noted. No signs and/or symptoms were reported regarding the genitourinary system. Derm: Skin is intact, is healthy with good turgor, Skin is dry, Skin is normal, Skin temperature is warm. Musculoskeletal: Circulation, motion, and sensation intact. Range of motion: intact in all extremities. Historical: - Allergies: 23:00 TETRACYCLINES; jw7 - Home Meds: 23:00 Strattera oral [Active]; jw7 - PMHx: 23:00 Bipolar disorder; Emphysema; COPD (Emphysema); Glycoma (Emphysema); jw7 - PSHx: 23:00 Total abdominal hysterectomy; Tennis Elbow; jw7 - Immunization history:: Adult Immunizations up to date, Client reports having NOT received the Covid vaccine. Pneumococcal vaccine is not up to date, Flu vaccine is not up to date. - Infectious Disease History:: Denies. - Social history:: Smoking status: Patient reports the use of cigarette tobacco products, denies chronic smoking, but will smoke occasionally, Patient/guardian denies using alcohol, street drugs, IV drugs. - Family history:: not pertinent. Screenin:00 Abuse screen: Denies threats or abuse. Denies injuries from another. jw7 23:00 [facility] ED Fall Risk Assessment (Adult) History of falling in the last 3 months, jw7 including since admission No falls in past 3 months (0 pts) Confusion or Disorientation No (0 pts) Intoxicated or Sedated No (0 pts) Impaired Gait No (0 pts) Mobility Assist Device Used No (0 pt) Altered Elimination No (0 pt) Score/Fall Risk Level 0 - 2 = Low Risk Oriented to surroundings, Maintained a safe environment, Educated pt \T\ family on fall prevention, incl call for assistance when getting out of bed. Nutritional screening: No deficits noted. Tuberculosis screening: No symptoms or risk factors identified. Assessment: 23:00 General: See Triage Assessment. jw7 23:00 Cardiovascular: Rhythm is sinus rhythm. jw7 09/08 00:00 Reassessment: Patient appears in no apparent distress at this time. No changes from jw7 previously documented assessment. Patient and/or family updated on plan of care and expected duration. Pain level reassessed. Patient is alert, oriented x 3, equal unlabored respirations, skin warm/dry/pink. 01:00 Reassessment: Patient appears in no apparent distress at this time. Patient and/or jw7 family updated on plan of care and expected duration. Pain level reassessed. Patient is alert, oriented x 3, equal unlabored respirations, skin warm/dry/pink. Patient states feeling better. Patient states symptoms have improved. 02:00 Reassessment: Patient appears in no apparent distress at this time. No changes from [facility] previously documented assessment. Patient and/or family updated on plan of care and expected duration. Pain level reassessed. Patient is alert, oriented x 3, equal unlabored respirations, skin warm/dry/pink. 03:15 Reassessment: Patient appears in no apparent distress at this time. No changes from [facility] previously documented assessment. Patient and/or family updated on plan of care and expected duration. Pain level reassessed. Patient is alert, oriented x 3, equal unlabored respirations, skin warm/dry/pink. Vital Signs: 09/07 23:00 BP 133 / 93; Pulse 98; Resp 20 S; Temp 97.9(O); Pulse Ox 98% on R/A; Weight 67.13 kg; [facility] Height 5 ft. 3 in. ; Pain 9/10; 09/08 00:43 BP 110 / 94; Pulse 82; Resp 12 S; Pulse Ox 100% on 8 lpm Nebulizer Mask; [facility] 01:46 BP 122 / 84; Pulse 81; Resp 18 S; Pulse Ox 97% on R/A; [facility] 02:51 BP 122 / 81; Pulse 81; Resp 19 S; Pulse Ox 97% on R/A; [facility] 03:24 BP 121 / 85; Pulse 81; Resp 19 S; Pulse Ox 95% on R/A; [facility] 09/07 23:00 Body Mass Index 26.22 (67.13 kg, 160.02 cm) [facility] 09/07 23:00 Pain Scale: Adult [facility] Taco Coma Score: 21:38 Eye Response: spontaneous(4). Motor Response: obeys commands(6). Verbal Response: sp4 oriented(5). Total: 15. ED Course: 09/07 22:48 Patient arrived in ED. ra3 22:52 Son Judge MD is Attending Physician. sp4 23:00 Arm band placed on. jw7 23:00 Patient has correct armband on for positive identification. Placed in gown. Bed in low jw7 position. Call light in reach. Side rails up X2. Provided Education on: Use of Call Light. 23:00 One-on-one care X 90 minutes. jw7 23:20 Missed attempt(s): 20 gauge in left antecubital area. Bleeding controlled, band aid jw7 applied, catheter tip intact. 23:44 XRAY CXR (1 view) In Process Unspecified. EDMS 23:55 Inserted saline lock: 22 gauge in right forearm, using aseptic technique. Blood jw7 collected. 23:55 First set of blood cultures drawn by me. jw7 09/08 00:10 Initial lab(s) drawn, by me, sent to lab. Second set of blood cultures drawn by me. jw7 00:36 Triage completed. jw7 00:42 No provider procedures requiring assistance completed. jw7 01:22 Assisted to bathroom. jw7 02:56 Claudio Alvarenga MD is Referral Physician. sp4 03:26 IV discontinued, intact, bleeding controlled, No redness/swelling at site. Pressure jw7 dressing applied. Administered Medications: 09/07 23:34 Not Given (Duplicate Order): ipratropiumaerosol 0.5 mg Inhalation once; Every 20 min jw7 for a total of 3 treatments x3 09/08 00:31 Drug: Ipratropium Inhalation Aerosol 0.5 mg Inhalation once; Every 20 min for a total jw7 of 3 treatments x3 Route: Inhalation; 03:26 Follow up: Response: No adverse reaction; Marked relief of symptoms jw7 00:31 Drug: MethylPrednisoLONE IVP 125 mg IVP once Route: IVP; Site: right forearm; jw7 03:26 Follow up: Response: No adverse reaction; Marked relief of symptoms jw7 00:31 Drug: morphine IVP or IV 4 mg IVP once over 4 mins Route: IVP; Infused Over: 4 mins; jw7 Site: right forearm; 03:26 Follow up: Response: No adverse reaction; Marked relief of symptoms; Pain is decreased jw7 00:31 Drug: Ondansetron IVP 4 mg IVP once; over 2 minutes Route: IVP; Site: right forearm; jw7 03:25 Follow up: Response: No adverse reaction; Marked relief of symptoms jw7 00:31 Drug: NS 0.9% IV 1000 ml IV at 125 ml/hr continuous Route: IV; Rate: 125 ml/hr; Site: jw7 right forearm; 03:25 Follow up: Response: No adverse reaction; IV Status: Completed infusion; IV Intake: jw7 350ml 00:32 Drug: Methocarbamol PO 1500 mg PO once Route: PO; jw7 03:25 Follow up: Response: No adverse reaction; Marked relief of symptoms jw7 00:32 Drug: Ketorolac IVP 30 mg IVP once Route: IVP; Site: right forearm; jw7 03:25 Follow up: Response: No adverse reaction; Marked relief of symptoms; Pain is decreased jw7 00:32 Drug: Albuterol Inhalation 2.5 mg Inhalation every 20 minutes x3 Route: Inhalation; jw7 03:25 Follow up: Response: No adverse reaction; Marked relief of symptoms jw7 Medication: 00:42 VIS not applicable for this client. jw7 Intake: 03:25 IV: 350ml; Total: 350ml. jw7 Outcome: 02:57 Discharge ordered by . jordyn 03:26 Discharged to home ambulatory, with friend, jw7 03:26 Condition: stable 03:26 Discharge instructions given to patient, Instructed on discharge instructions, follow up and referral plans. medication usage, Demonstrated understanding of instructions, follow-up care, medications, Prescriptions given X 3, 03:27 Patient left the ED. jw7 Signatures: Dispatcher [employer] EDMS Christine Avila RN RN jw7 Son Judge MD MD sp4 Drea Ross ra3 Corrections: (The following items were deleted from the chart) 01:12 00:43 Reassessment: Patient appears in no apparent distress at this time. Patient jw7 and/or family updated on plan of care and expected duration. Pain level reassessed. Patient is alert, oriented x 3, equal unlabored respirations, skin warm/dry/pink. Patient states feeling better. Patient states symptoms have improved. jw7 01:22 0428 23:00 Assisted to bathroom. jw7 jw7
--- NOTE | 2023-09-09 02:58 | EDPHYS ---
Physician Documentation [facility] Name: Audrey Rushing Age: 68 yrs Sex: Female : 1955 Arrival Date: 09/08/2023 Time: 22:44 Bed 4 Private MD: ED Physician Son Judge HPI: 09/07 22:52 This 68 yrs old Female presents to ER via Unassigned with complaints of Hurts sp4 All Over, Shortness Of Breath - Heart Palp. 09/08 21:38 62-year-old female presents with acute onset of shortness of breath, generalized pain sp4 and palpitations.. Historical: - Allergies: 09/07 23:00 TETRACYCLINES; jw7 - Home Meds: 23:00 Strattera oral [Active]; jw7 - PMHx: 23:00 Bipolar disorder; Emphysema; COPD (Emphysema); Glycoma (Emphysema); jw7 - PSHx: 23:00 Total abdominal hysterectomy; Tennis Elbow; jw7 - Immunization history:: Adult Immunizations up to date, Client reports having NOT received the Covid vaccine. Pneumococcal vaccine is not up to date, Flu vaccine is not up to date. - Infectious Disease History:: Denies. - Social history:: Smoking status: Patient reports the use of cigarette tobacco products, denies chronic smoking, but will smoke occasionally, Patient/guardian denies using alcohol, street drugs, IV drugs. - Family history:: not pertinent. ROS: 09/08 21:38 Constitutional: Negative for fever, chills, and weight loss, positive generalized pain, sp4 positive shortness of breath, positive palpitations All other systems are negative, Exam: 02:54 ECG was reviewed by the Attending Physician. 23:00 normal sinus rhythm with a rate of sp4 93 21:38 Constitutional: This is a well developed, well nourished patient who is awake, alert, sp4 and in no acute distress. Head/Face: Normocephalic, atraumatic. Eyes: Pupils equal round and reactive to light, extra-ocular motions intact. Lids and lashes normal. Conjunctiva and sclera are not injected. Cornea within normal limits. Periorbital areas with no swelling, redness, or edema. ENT: Nares patent. No nasal discharge, no septal abnormalities noted. Tympanic membranes are normal and external auditory canals are clear. Oropharynx with no redness, swelling, or masses, exudates, or evidence of obstruction, uvula midline. Mucous membranes moist. Neck: Trachea midline, no thyromegaly or masses palpated, and no cervical lymphadenopathy. Supple, full range of motion without nuchal rigidity, or vertebral point tenderness. Chest/axilla: Normal chest wall appearance and motion. Nontender with no deformity. No lesions are appreciated. Cardiovascular: Regular rate and rhythm with a normal S1 and S2. No gallops, murmurs, or rubs. Normal PMI, no JVD. No pulse deficits. Respiratory: Lungs have equal breath sounds bilaterally, clear to auscultation and percussion. No rales, rhonchi or wheezes noted. No increased work of breathing, no retractions or nasal flaring. Abdomen/GI: Soft, with normal bowel sounds. No distension or tympany. No guarding or rebound. No evidence of tenderness throughout. Back: No spinal tenderness. No costovertebral tenderness. Skin: Warm, dry with normal turgor. Normal color with no rashes, no lesions, and no evidence of cellulitis. MS/ Extremity: Pulses equal, no cyanosis. Neurovascular intact. Full, normal range of motion. Neuro: Awake and alert, GCS 15, oriented to person, place, time, and situation. Cranial nerves II-XII grossly intact. Motor strength 5/5 in all extremities. Sensory grossly intact. Psych: Awake, alert, with orientation to person, place and time. Behavior, mood, and affect are within normal limits Vital Signs: 09/07 23:00 BP 133 / 93; Pulse 98; Resp 20 S; Temp 97.9(O); Pulse Ox 98% on R/A; Weight 67.13 kg; jw7 Height 5 ft. 3 in. ; Pain 9/10; 09/08 00:43 BP 110 / 94; Pulse 82; Resp 12 S; Pulse Ox 100% on 8 lpm Nebulizer Mask; jw7 01:46 BP 122 / 84; Pulse 81; Resp 18 S; Pulse Ox 97% on R/A; jw7 02:51 BP 122 / 81; Pulse 81; Resp 19 S; Pulse Ox 97% on R/A; jw7 03:24 BP 121 / 85; Pulse 81; Resp 19 S; Pulse Ox 95% on R/A; 7 09/07 23:00 Body Mass Index 26.22 (67.13 kg, 160.02 cm) 7 09/07 23:00 Pain Scale: Adult jw7 Taco Coma Score: 21:38 Eye Response: spontaneous(4). Motor Response: obeys commands(6). Verbal Response: sp4 oriented(5). Total: 15. MDM: 09/07 23:02 Patient medically screened. [facility] 09/08 02:50 ED course: EXAM DESCRIPTION: Chest Single View CLINICAL HISTORY: DYSPNEA COMPARISON: [facility] 02/21/2023 FINDINGS: Cardiac silhouette is within normal limits. EKG leads project over the chest. There is no focal parenchymal or pleural disease. There is no acute osseous process visualized. IMPRESSION: No evidence of acute cardiopulmonary disease. . 21:38 Differential diagnosis: Anxiety Reaction asthma, Bronchitis CHF exacerbation, Chronic sp4 Obstructive Pulmonary Disease. Data reviewed: vital signs, nurses notes, lab test result(s), radiologic studies, plain films. ED course: Patient is stable for discharge home. She is feeling much improved.. 09/07 22:53 Order name: BMP; Complete Time: 02:46 [facility] 09/07 22:53 Order name: Blood Culture Adult (2) [facility] 09/07 22:53 Order name: CBC with Diff [facility] 09/07 22:53 Order name: CPK; Complete Time: 02:46 [facility] 09/07 22:53 Order name: Hepatic Function; Complete Time: 02:46 [facility] 09/07 22:53 Order name: Lipase; Complete Time: 02:46 [facility] 09/07 22:53 Order name: Magnesium; Complete Time: 02:46 [facility] 09/07 22:53 Order name: NT PRO-BNP; Complete Time: 02:46 [facility] 09/07 22:53 Order name: PT-INR; Complete Time: 02:46 [facility] 09/07 22:53 Order name: Ptt, Activated; Complete Time: 02:46 [facility] 09/07 22:53 Order name: Troponin HS; Complete Time: 02:46 [facility] 09/08 00:33 Order name: CBC Smear Scan [facility] 09/08 01:17 Order name: Troponin High Sensitivity; Complete Time: 03:10 [facility] 09/07 22:53 Order name: XRAY CXR (1 view) [facility] 09/07 22:53 Order name: EKG; Complete Time: 22:53 sp4 09/07 22:53 Order name: Cardiac monitoring; Complete Time: 23:16 sp4 09/07 22:53 Order name: EKG - Nurse/Tech; Complete Time: 23:16 sp4 09/07 22:53 Order name: IV Saline Lock; Complete Time: 00:32 sp4 09/07 22:53 Order name: Labs collected and sent; Complete Time: 00:32 sp4 09/07 22:53 Order name: O2 Per Protocol; Complete Time: 23:16 sp4 09/07 22:53 Order name: O2 Sat Monitoring; Complete Time: 23:16 EC:54 Rate is 93 beats/min. Rhythm is regular, Normal Sinus Rhythm. QRS [place] is Normal. [place] sp4 interval is normal. QRS interval is normal. QT interval is normal. No Q waves. T waves are Normal. No ST changes noted. Clinical impression: Normal ECG. Interpreted by me. Reviewed by me. Administered Medications: 09/07 23:34 Not Given (Duplicate Order): ipratropiumaerosol 0.5 mg Inhalation once; Every 20 min jw7 for a total of 3 treatments x3 09/08 00:31 Drug: Ipratropium Inhalation Aerosol 0.5 mg Inhalation once; Every 20 min for a total jw7 of 3 treatments x3 Route: Inhalation; 03:26 Follow up: Response: No adverse reaction; Marked relief of symptoms jw7 00:31 Drug: MethylPrednisoLONE IVP 125 mg IVP once Route: IVP; Site: right forearm; jw7 03:26 Follow up: Response: No adverse reaction; Marked relief of symptoms jw7 00:31 Drug: morphine IVP or IV 4 mg IVP once over 4 mins Route: IVP; Infused Over: 4 mins; jw7 Site: right forearm; 03:26 Follow up: Response: No adverse reaction; Marked relief of symptoms; Pain is decreased jw7 00:31 Drug: Ondansetron IVP 4 mg IVP once; over 2 minutes Route: IVP; Site: right forearm; jw7 03:25 Follow up: Response: No adverse reaction; Marked relief of symptoms jw7 00:31 Drug: NS 0.9% IV 1000 ml IV at 125 ml/hr continuous Route: IV; Rate: 125 ml/hr; Site: [facility] right forearm; 03:25 Follow up: Response: No adverse reaction; IV Status: Completed infusion; IV Intake: jw7 350ml 00:32 Drug: Methocarbamol PO 1500 mg PO once Route: PO; jw7 03:25 Follow up: Response: No adverse reaction; Marked relief of symptoms jw7 00:32 Drug: Ketorolac IVP 30 mg IVP once Route: IVP; Site: right forearm; 7 03:25 Follow up: Response: No adverse reaction; Marked relief of symptoms; Pain is decreased jw7 00:32 Drug: Albuterol Inhalation 2.5 mg Inhalation every 20 minutes x3 Route: Inhalation; jw7 03:25 Follow up: Response: No adverse reaction; Marked relief of symptoms jw Disposition Summary: 09/09/23 02:57 Discharge Ordered Notes: Location: Home sp4 Problem: new sp4 Symptoms: have improved sp4 Condition: Stable sp4 Diagnosis - Acute generalized bodyaches, palpitations, dyspnea, Emphysema sp4 Followup: sp4 - With: Claudoi Alvarenga MD - When: 7 - 10 days - Reason: Recheck today's complaints Discharge Instructions: - Discharge Summary Sheet sp4 - Shortness of Breath, Adult, Gdli-ti-Dcof sp4 Forms: - Patient Portal Instructions sp4 Prescriptions: - Ventolin HFA 90 mcg/actuation Inhalation HFA Aerosol Inhaler - inhale 1 puff INHALATION route every 4 hours 1 puff via inhaler PRN dyspnea Q 4 sp4 hours , Dispense with Spacer; 1 unit; Refills: 0, Product Selection Permitted - dextromethorphan-guaifenesin 20-400 mg Oral tablet - take 2 tablet ORAL route every 6 hours PRN cough; 40 tablet; Refills: 0, sp4 Product Selection Permitted - promethazine 25 mg Oral tablet - take 1 tablet ORAL route every 6 hours As needed PRN nausea; 30 tablet; sp4 Refills: 0, Product Selection Permitted Signatures: Dispatcher [facility] Christine Laguna RN RN jw7 Son Judge MD MD sp4 Corrections: (The following items were deleted from the chart) 09/07 22:54 22:53 BASIC METABOLIC PANEL+C.LAB.BRZ ordered. EDMS EDMS 22:54 22:53 BLOOD CULTURE*+BA.LAB.BRZ ordered. EDMS EDMS : 22:53 CBC+H.LAB.BRZ ordered. EDMS EDMS : 22:53 CREATINE PHOSPHOKINASE+C.LAB.BRZ ordered. EDMS EDMS : 22:53 HEPATIC FUNCTION+C.LAB.BRZ ordered. EDMS EDMS 22:54 22:53 LIPASE+C.LAB.BRZ ordered. EDMS EDMS : 22:53 MAGNESIUM+C.LAB.BRZ ordered. EDMS EDMS : 22:53 PROBNP+C.LAB.BRZ ordered. EDMS EDMS : 22:53 PROTIME (+INR)+COAG.LAB.BRZ ordered. EDMS EDMS : 22:53 PTT, ACTIVATED+COAG.LAB.BRZ ordered. EDMS EDMS : 22:53 Troponin High Sensitivity+C.LAB.BRZ ordered. EDMS EDMS
[2023-09-09 03:11] LABS: Anisocytosis 2+; Blood Morphology Comment NOTED (NOT SEEN); Microcytosis 1+; Ovalocytes 1+; Platelet Estimate ADEQ; White Blood Cell Scan OK (OK)
[2023-09-09 04:01] VITALS: BP 121/85; TEMP 97.9; O2SAT 95
--- NOTE | 2023-09-09 12:20 | RAD REPORT ---
EXAM DESCRIPTION: Chest Single View CLINICAL HISTORY: DYSPNEA COMPARISON: 02/21/2023 FINDINGS: Cardiac silhouette is within normal limits. EKG leads project over the chest. There is no focal parenchymal or pleural disease. There is no acute osseous process visualized. IMPRESSION: No evidence of acute cardiopulmonary disease. Electronically signed by: Geo Mckay MD 09/09/2023 12:07 AM CDT Due to temporary technical issues with the PACS/Fluency reporting system, reports are being signed by the in house radiologist without review as a courtesy to ensure prompt reporting. The interpreting r adiologist is fully responsible for the content of the report.
--- NOTE | 2023-09-09 12:56 | EKG ---
Test Date: 2023-09-08 Test Time: 23:00:31 [employer]: MARI MEASUREMENT RESULTS: Intervals: Rate: 93 RI: 164 QRSD: 62 QT: 330 QTc: 410 [place]: P: 73 RI: 164 QRS: 27 T: 46 INTERPRETIVE STATEMENTS: Normal sinus rhythm Normal ECG Compared to ECG 02/21/2023 02:01:52 First degree AV block no longer present Electronically Signed On 09-09-23 12:54:38 CDT by Juanjose Polk
== END 2023-09-09 03:27 | disposition home or self-care (01) ==
LOC: ER 22:44
DX: R06.00 Dyspnea, unspecified (principal); J43.9 Emphysema, unspecified; R00.2 Palpitations; M79.10 Myalgia, unspecified site; J44.9 Chronic obstructive pulmonary disease, unspecified; F17.210 Nicotine dependence, cigarettes, uncomplicated; Z88.1 Allergy status to other antibiotic agents; Z28.310 Unvaccinated for COVID-19
CPT/HCPCS: 93005; 87040 ×2; 85025; 80048; 36415; 83735; 82550; 85610; 80076; 85730; 84484 ×2; 83690; 83880; 71045; J7613; J7644; J2919; J2405; J7030; 96361; 96374; 96375; 99291; 99292

== ENCOUNTER 2023-10-31 02:14 | Emergency (ER) | payer OTHER ==
[2023-10-31] MEDS ORDERED: MORPHINE 4 MG/ML SYR ONE (02:55)
[2023-10-31] MEDS ORDERED: ONDANSETRON 4 MG/2 ML VIAL ONE (02:55)
[2023-10-31] MEDS ORDERED: KETOROLAC 30 MG/ML INJ ONE (02:55)
[2023-10-31] MEDS ORDERED: DICYCLOMINE HCL 20 MG/2 ML AMP IM ONE (02:55)
[2023-10-31 03:59] LABS: Protime INR 0.91
[2023-10-31 04:01] LABS: Absolute Eosinophils 0.1 K/uL (0-0.5); Absolute Lymphocytes (CBC) 1.6 K/uL (0.7-4.9); Absolute Monocytes 0.8 K/uL (0.1-1.3); Basophils % 0.7 % (0-1.3); Eosinophils % 1.8 % (0-4.4); Hematocrit 34.5 % (36.0-45.0); Hemoglobin 11.3 g/dL (12.0-15.0); Lymphocytes % 28.5 % (15.3-44.8); MCH 30.8 pg (27.0-35.0); MCHC 32.8 g/dL (32.0-36.0); MCV 93.9 fL (80-100); MPV 6.9 fL (7.6-11.3); Monocytes % 14.5 % (3.3-12.3); Neutrophils % 54.5 % (41.7-73.7); Platelets 226 thou/uL (152-406); RBC Red Blood Cell Count 3.68 M/uL (3.86-4.86); Red Cell Distribution Width 22.1 % (12.1-15.2)
[2023-10-31 04:23] LABS: ALT/SGPT 29 U/L (13-56); AST/SGOT 21 U/L (15-37); Alkaline Phosphatase 70 U/L (45-117); Anion Gap 9.1 mEq/L (5.0-15.0); BUN Blood Urea Nitrogen 14 mg/dL (7-18); Bicarbonate 25 mEq/L (21-32); Bilirubin Total 0.2 mg/dL (0.2-1.0); Globulin 2.9 g/dL (2.3-3.5); Glomerular Filtration Rate 98 ml/min (=/>90); Glucose Level 111 mg/dL (74-106); Lipase 74 U/L (13-75); Magnesium 1.9 mg/dL (1.6-2.4); NT PRO-BNP 32 pg/mL (<125); Potassium 4.1 mEq/L (3.5-5.1); Protein, Total 5.9 g/dL (6.4-8.2); Sodium Level 137 mEq/L (136-145); Troponin High Sensitivity 5.7 pg/mL (<58.9)
[2023-10-31 04:27] LABS: Bilirubin Direct < 0.2 mg/dL (0-0.2)
[2023-10-31 04:35] LABS: Anisocytosis 2+; Blood Morphology Comment NOTED (NOT SEEN); Microcytosis 1+; Platelet Estimate ADEQ; Teardrop Cell 2+; White Blood Cell Scan OK (OK)
--- NOTE | 2023-10-31 06:21 | ER ---
Nurse's Notes [facility] Name: Audrey Rushing Age: 68 yrs Sex: Female : 1955 Arrival Date: 10/31/2023 Time: 02:14 Bed 20 Private MD: Diagnosis: Epigastric pain;Acute acid reflux Presentation: 10/30 02:19 Chief complaint: EMS states: patient reports epigastric pain that has been "off and on cp4 for awhile". Coronavirus screen: Client denies travel out of the [place] in the last 14 days. At this time, the client does not indicate any symptoms associated with coronavirus-19. Ebola Screen: Patient negative for fever greater than or equal to 101.5 degrees Fahrenheit, and additional compatible Ebola Virus Disease symptoms Patient denies exposure to infectious person. Patient denies travel to an Ebola-affected area in the 21 days before illness onset. No symptoms or risks identified at this time. Initial Sepsis Screen: Does the patient meet any 2 criteria? No. Patient's initial sepsis screen is negative. Does the patient have a suspected source of infection? No. Patient's initial sepsis screen is negative. Risk Assessment: Do you want to hurt yourself or someone else? Patient reports no desire to harm self or others. Onset of symptoms is unknown. 02:19 Method Of Arrival: EMS: [facility] cp4 02:19 Acuity: DHEERAJ 3 cp4 Triage Assessment: 02:22 General: Appears in no apparent distress. Behavior is calm, cooperative, appropriate cp4 for age. Pain: Complains of pain in epigastric. GI: Abdomen is round non-distended, Bowel sounds present X 4 quads. Historical: - Allergies: 02:22 TETRACYCLINES; cp4 02:22 Talwin; cp4 - Immunization history:: Adult Immunizations up to date. - Infectious Disease History:: Denies. - Social history:: Smoking status: Patient denies any tobacco usage or history of. - Family history:: not pertinent. Screenin:24 [facility] ED Fall Risk Assessment (Adult) History of falling in the last 3 months, cp4 including since admission No falls in past 3 months (0 pts) Confusion or Disorientation No (0 pts) Intoxicated or Sedated No (0 pts) Impaired Gait No (0 pts) Mobility Assist Device Used No (0 pt) Altered Elimination No (0 pt) Score/Fall Risk Level 0 - 2 = Low Risk Oriented to surroundings, Maintained a safe environment, Assessed \\T\\ reinforced patient's understanding of fall precautions, Hourly rounding (assess needs \\T\\ fall precautionary measures) done. Abuse screen: Denies threats or abuse. Nutritional screening: No deficits noted. Tuberculosis screening: No symptoms or risk factors identified. Assessment: 02:24 Reassessment: No changes from previously documented assessment. cp4 03:15 General: Appears comfortable, Behavior is cooperative, anxious. Pain: Complains of pain ha1 in epigastric area Pain does not radiate. Pain currently is 5 out of 10 on a pain scale. Quality of pain is described as pressure. Neuro: Level of Consciousness is awake, alert, obeys commands, Oriented to person, place, time, situation. Cardiovascular: Heart tones S1 S2 present Capillary refill < 3 seconds Patient's skin is warm and dry. Rhythm is sinus rhythm. Respiratory: Airway is patent Respiratory effort is even, unlabored, Respiratory pattern is regular, symmetrical. Derm: Skin is pink, warm \\T\\ dry. normal. Musculoskeletal: Circulation, motion, and sensation intact. 03:33 Reassessment: requesting water. provided a cup of ice chips. ha1 03:40 Reassessment: assisted to bathroom and back to bed. ha1 04:15 Reassessment: Patient and/or family updated on plan of care and expected duration. Pain ha1 level reassessed. Patient is alert, oriented x 3, equal unlabored respirations, skin warm/dry/pink. 04:22 Reassessment: requesting some one to lower the volume of TV. Channels changed . ha1 05:00 Reassessment: Patient and/or family updated on plan of care and expected duration. Pain ha1 level reassessed. Patient is alert, oriented x 3, equal unlabored respirations, skin warm/dry/pink. 05:02 Reassessment: In the room with patient. patient requesting the TV channels to be change.ha1 05:50 Reassessment: patient requesting water. provided a cup of water. ha1 Vital Signs: 02:52 BP 133 / 93; Pulse 88; Resp 18; Temp 98; Pulse Ox 98% ; Pain 7/10; cp4 03:17 BP 135 / 82; Pulse 84; Resp 16 S; Pulse Ox 98% on R/A; ha1 04:00 BP 130 / 83; Pulse 75; Resp 17 S; Pulse Ox 100% on R/A; ha1 05:00 BP 134 / 80; Pulse 75; Resp 18 S; Pulse Ox 98% on R/A; rg5 06:02 BP 125 / 82; Pulse 76; Resp 17 S; Pulse Ox 95% on R/A; ha1 02:52 Pain Scale: Adult cp4 [place] Score: 10/31 00:57 Eye Response: spontaneous(4). Motor Response: obeys commands(6). Verbal Response: sp4 oriented(5). Total: 15. ED Course: 10/30 02:14 Patient arrived in ED. [email or web address] 02:15 Son Judge MD is Attending Physician. sp4 02:17 Qing Ruiz is Primary Nurse. cp4 02:22 Triage completed. cp4 02:22 Arm band placed on right wrist. Patient placed in an exam room, on a stretcher. cp4 02:24 Bed in low position. Call light in reach. Side rails up X2. cp4 02:51 No provider procedures requiring assistance completed. Maintain EMS IV. Dressing cp4 intact. Good blood return noted. Site clean \\T\\ dry. Gauge \\T\\ site: 20 g L hand. 03:15 Report received from DARREN guy. rg5 03:17 Door closed. Noise minimized. Lights dimmed. Warm blanket given. rg5 04:00 Warm blanket given. rg5 05:00 Door closed. Noise minimized. Lights dimmed. Warm blanket given. Pillow given. rg5 05:14 Chest Abd Pelvis Wo Con In Process Unspecified. EDMS 06:00 Provided Education on: follow ups. ha1 06:20 Leopoldo Leigh MD is Referral Physician. sp4 06:41 IV discontinued, intact, bleeding controlled, No redness/swelling at site. Pressure rg5 dressing applied. Administered Medications: 03:01 Not Given (Patient Refused): [id number] mg IVP once; dilute with 10 mL 0.9% NaCl; cp4 give over 2 minutes 03:01 Drug: Ketorolac IVP 30 mg IVP once Route: IVP; Site: left hand; cp4 03:30 Follow up: Response: No adverse reaction; Marked relief of symptoms; Pain is decreased ha1 03:01 Drug: morphine IVP or IV 4 mg IVP once over 4 mins Route: IVP; Infused Over: 4 mins; cp4 Site: left hand; 03:30 Follow up: Response: No adverse reaction; Marked relief of symptoms; Pain is decreased; ha1 RASS: Alert and Calm (0) 03:01 Drug: Ondansetron IVP 4 mg IVP once; over 2 minutes Route: IVP; Site: left hand; cp4 03:30 Follow up: Response: No adverse reaction; Marked relief of symptoms ha1 03:01 Not Given (Patient Refused): [id number] mg IM once cp4 06:22 Drug: Famotidine IVP 20 mg IVP once; dilute with 10 mL 0.9% NaCl; give over 2 minutes rg5 Route: IVP; Site: left wrist; 06:40 Follow up: Response: No adverse reaction rg5 Medication: 02:24 VIS not applicable for this client. cp4 Outcome: 06:21 Discharge ordered by . sp4 06:41 Discharged to home ambulatory, rg5 06:41 Condition: stable 06:41 Discharge instructions given to patient, Instructed on discharge instructions, follow up and referral plans. medication usage, Demonstrated understanding of instructions, follow-up care, medications, Prescriptions given X 1, 06:45 Patient left the ED. rg5 Signatures: Dispatcher [employer] EDMS Deepika Munguia jj6 Connie Hoff RN RN ha1 Son Judge MD MD sp4 Qing Ruiz cp4 Ayan Carvalho RN RN rg5 Corrections: (The following items were deleted from the chart) 02:22 02:22 PMHx: Bipolar disorder; cp4 cp4 02:22 02:22 PMHx: Emphysema; cp4 cp4 02:22 02:22 PMHx: COPD (Emphysema); cp4 cp4 02:22 02:22 PMHx: Glycoma (Emphysema); cp4 cp4 02:22 02:22 PSHx: Total abdominal hysterectomy; cp4 cp4 02:22 02:22 PSHx: Tennis Elbow; cp4 cp4 07:12 04:15 Reassessment: Patient and/or family updated on plan of care and expected ha1 duration. Pain level reassessed. Patient is alert, oriented x 3, equal unlabored respirations, skin warm/dry/pink. [facility] 05:00 Reassessment: Patient and/or family updated on plan of care and expected ha1 duration. Pain level reassessed. Patient is alert, oriented x 3, equal unlabored respirations, skin warm/dry/pink. [facility] 05:02 Reassessment: In the room with patient. patient requesting the TV channels to be ha1 change [facility] 05:50 Reassessment: patient requesting water. provided a cup of water [place] [id number] 04:22 Reassessment: requesting some one to lower the volume of TV. Channels changed . ha1 [facility] 03:33 Reassessment: requesting water. provided a cup of ice chips [facility] 03:40 Reassessment: assisted to bathroom and back to bed [facility] 04:00 BP 130 / 83; Pulse 75bpm; Resp 17bpm; Spontaneous; Pulse Ox 100% RA; [facility] :13 06:02 BP 125 / 82; Pulse 76bpm; Resp 17bpm; Spontaneous; Pulse Ox 95% RA; [place] [id number]
--- NOTE | 2023-10-31 06:21 | EDPHYS ---
Physician Documentation [facility] Name: Audrey Rushing Age: 68 yrs Sex: Female : 1955 Arrival Date: 10/31/2023 Time: 02:14 Bed 20 Private MD: ED Physician Son Judge HPI: 10/30 02:15 This 68 yrs old Female presents to ER via Unassigned with complaints of sp4 Epigastric Pain. 10/31 00:28 68-year-old female presents with epigastric abdominal pain reported to be unpleasant.. sp4 Historical: - Allergies: 10/30 02:22 TETRACYCLINES; cp4 02:22 Talwin; cp4 - Immunization history:: Adult Immunizations up to date. - Infectious Disease History:: Denies. - Social history:: Smoking status: Patient denies any tobacco usage or history of. - Family history:: not pertinent. ROS: 10/31 00:28 Constitutional: Negative for fever, chills, and weight loss, Positive epigastric pain sp4 All other systems are negative, Exam: 10/30 06:22 ECG was reviewed by the Attending Physician. EKG today 0-51 normal sinus rhythm with a sp4 rate of 83 10/31 00:57 Constitutional: This is a well developed, well nourished patient who is awake, alert, sp4 and in no acute distress. Head/Face: Normocephalic, atraumatic. Eyes: Pupils equal round and reactive to light, extra-ocular motions intact. Lids and lashes normal. Conjunctiva and sclera are not injected. Cornea within normal limits. Periorbital areas with no swelling, redness, or edema. ENT: Nares patent. No nasal discharge, no septal abnormalities noted. Tympanic membranes are normal and external auditory canals are clear. Oropharynx with no redness, swelling, or masses, exudates, or evidence of obstruction, uvula midline. Mucous membranes moist. Neck: Trachea midline, no thyromegaly or masses palpated, and no cervical lymphadenopathy. Supple, full range of motion without nuchal rigidity, or vertebral point tenderness. Chest/axilla: Normal chest wall appearance and motion. Nontender with no deformity. No lesions are appreciated. Cardiovascular: Regular rate and rhythm with a normal S1 and S2. No gallops, murmurs, or rubs. Normal PMI, no JVD. No pulse deficits. Respiratory: Lungs have equal breath sounds bilaterally, clear to auscultation and percussion. No rales, rhonchi or wheezes noted. No increased work of breathing, no retractions or nasal flaring. Abdomen/GI: Soft, with normal bowel sounds. No distension or tympany. No guarding or rebound. No evidence of tenderness throughout. Back: No spinal tenderness. No costovertebral tenderness. Skin: Warm, dry with normal turgor. Normal color with no rashes, no lesions, and no evidence of cellulitis. MS/ Extremity: Pulses equal, no cyanosis. Neurovascular intact. Full, normal range of motion. Neuro: Awake and alert, GCS 15, oriented to person, place, time, and situation. Cranial nerves II-XII grossly intact. Motor strength 5/5 in all extremities. Sensory grossly intact. Psych: Awake, alert, with orientation to person, place and time. Behavior, mood, and affect are within normal limits Vital Signs: 10/30 02:52 BP 133 / 93; Pulse 88; Resp 18; Temp 98; Pulse Ox 98% ; Pain 7/10; cp4 03:17 BP 135 / 82; Pulse 84; Resp 16 S; Pulse Ox 98% on R/A; ha1 04:00 BP 130 / 83; Pulse 75; Resp 17 S; Pulse Ox 100% on R/A; ha1 05:00 BP 134 / 80; Pulse 75; Resp 18 S; Pulse Ox 98% on R/A; rg5 06:02 BP 125 / 82; Pulse 76; Resp 17 S; Pulse Ox 95% on R/A; ha1 02:52 Pain Scale: Adult cp4 [place] Score: 10/31 00:57 Eye Response: spontaneous(4). Motor Response: obeys commands(6). Verbal Response: sp4 oriented(5). Total: 15. MDM: 10/30 02:18 Patient medically screened. sp4 06:19 ED course: CLINICAL HISTORY: CHEST PAIN COMPARISON: None. TECHNIQUE: CT CHESTABDOMEN sp4 PELVIS WITHOUT IV CONTRAST on 10/31/2023 2:17 AM CDT This exam was performed according to our departmental dose-optimization program, which includes automated exposure control, adjustment of the mA and/or kV according to patient size and/or use of iterative reconstruction technique. FINDINGS: Chest: The heart is normal in size. There is no pericardial effusion. Intrathoracic lymph nodes are not enlarged. There is fluid throughout the proximal half of the esophagus. There is no pleural effusion, pleural thickening or pneumothorax. Central airways are patent. Lungs are clear with no consolidation, mass or interstitial lung disease. Abdomen: The liver is normal in appearance. There is no biliary dilatation. Gallbladder is normal in appearance. The pancreas and spleen are normal in appearance. Adrenal glands are normal. Mid to upper pole right renal cyst measures 2.4 cm. There is minimal right hydronephrosis with no clear etiology. Abdominal aorta is normal in course and caliber without aneurysm. There is no free air. There is no retroperitoneal adenopathy. Pelvis: There is large amount stool throughout the colon. Urinary bladder is unremarkable. There is no free fluid. Appendix is not clearly seen. Skeleton: There are no acute osseous findings. No suspicious bony lesions. IMPRESSION: Minimal right hydronephrosis without a clear etiology. Fluid throughout the proximal half of the esophagus. Right Bosniak I/Bosniak II benign renal cyst measuring 2.4 cm. No follow-up imaging is recommended. . 06:19 ED course: EKG at 0 251 normal sinus rhythm at rate of 83.. sp4 10/31 00:57 Differential Diagnosis sepsis, flu, epigastric pain. Data reviewed: vital signs, nurses sp4 notes, EMS record, lab test result(s), EKG, radiologic studies, CT scan. Consideration of Admission/Observation Escalation of care including admission/observation considered. ED course: Stable for discharge home . 10/30 02:17 Order name: Basic Metabolic Panel; Complete Time: 06:19 sp4 10/30 02:17 Order name: CBC with Diff; Complete Time: 06:19 sp4 10/30 02:17 Order name: LFT's; Complete Time: 06:19 sp4 10/30 02:17 Order name: Magnesium; Complete Time: 06:19 sp4 10/30 02:17 Order name: NT PRO-BNP; Complete Time: 06:19 sp4 10/30 02:17 Order name: PT-INR; Complete Time: 06:19 sp4 10/30 02:17 Order name: Troponin HS; Complete Time: :19 sp4 10/30 02:18 Order name: Lipase; Complete Time: 06:19 sp4 10/30 04:04 Order name: CBC Smear Scan; Complete Time: 06:19 EDMS 10/30 05:08 Order name: Chest Abd Pelvis Wo Con EDMS 10/30 02:17 Order name: EKG; Complete Time: 02:17 sp4 10/30 02:17 Order name: Cardiac monitoring; Complete Time: 02:51 sp4 10/30 02:17 Order name: EKG - Nurse/Tech; Complete Time: 02:51 sp4 10/30 02:17 Order name: IV Saline Lock; Complete Time: 02:51 sp4 10/30 02:17 Order name: Labs collected and sent; Complete Time: 02:51 sp4 10/30 02:17 Order name: O2 Per Protocol; Complete Time: 02:51 sp4 10/30 02:17 Order name: O2 Sat Monitoring; Complete Time: 02:51 sp4 10/30 03:16 Order name: Misc. Order: lab recollect; Complete Time: 03:41 kmf EC/20 06:22 Rate is 83 beats/min. Rhythm is regular, Normal Sinus Rhythm. QRS [place] is Normal. [place] sp4 interval is normal. QRS interval is normal. QT interval is normal. No Q waves. T waves are Normal. No ST changes noted. Clinical impression: Normal ECG. Interpreted by me. Reviewed by me. Administered Medications: 03:01 Not Given (Patient Refused): [id number] mg IVP once; dilute with 10 mL 0.9% NaCl; cp4 give over 2 minutes 03:01 Drug: Ketorolac IVP 30 mg IVP once Route: IVP; Site: left hand; cp4 03:30 Follow up: Response: No adverse reaction; Marked relief of symptoms; Pain is decreased ha1 03:01 Drug: morphine IVP or IV 4 mg IVP once over 4 mins Route: IVP; Infused Over: 4 mins; cp4 Site: left hand; 03:30 Follow up: Response: No adverse reaction; Marked relief of symptoms; Pain is decreased; ha1 RASS: Alert and Calm (0) 03:01 Drug: Ondansetron IVP 4 mg IVP once; over 2 minutes Route: IVP; Site: left hand; cp4 03:30 Follow up: Response: No adverse reaction; Marked relief of symptoms ha1 03:01 Not Given (Patient Refused): [id number] mg IM once cp4 06:22 Drug: Famotidine IVP 20 mg IVP once; dilute with 10 mL 0.9% NaCl; give over 2 minutes rg5 Route: IVP; Site: left wrist; 06:40 Follow up: Response: No adverse reaction rg5 Disposition Summary: 10/31/23 06:21 Discharge Ordered Notes: Location: Home sp4 Problem: new sp4 Symptoms: have improved sp4 Condition: Stable sp4 Diagnosis - Epigastric pain sp4 - Acute acid reflux sp4 Followup: sp4 - With: Leopoldo Leigh MD - When: 7 - 10 days - Reason: Recheck today's complaints Discharge Instructions: - Discharge Summary Sheet sp4 - Abdominal Pain, Adult sp4 Forms: - Patient Portal Instructions sp4 Prescriptions: - omeprazole 40 mg Oral capsule,delayed release (e.c.) - take 2 capsule ORAL route every evening; 60 capsule; Refills: 0, Product sp4 Selection Permitted Signatures: Dispatcher [employer] EDSon Thurston MD MD sp4 Qing Ruiz 4 [facility] Ayan Carvalho RN RN rg5 Connie Hoff RN ha1 Corrections: (The following items were deleted from the chart) 02:18 02:18 LIPASE+C.LAB.BRZ ordered. EDMS EDMS 02:22 02:22 PMHx: Bipolar disorder; cp4 cp4 02:22 02:22 PMHx: Emphysema; cp4 cp4 02:22 02:22 PMHx: COPD (Emphysema); cp4 cp4 02:22 02:22 PMHx: Glycoma (Emphysema); cp4 cp4 02:22 02:22 PSHx: Total abdominal hysterectomy; cp4 cp4 02:22 02:22 PSHx: Tennis Elbow; cp4 cp4 05:08 02:18 Chest Abdomen Pelvis W Con+CT.RAD.BRZ ordered. EDMS EDMS
[2023-10-31] MEDS ORDERED: FAMOTIDINE 20 MG/2 ML VIAL IV ONE (06:30)
[2023-10-31 06:53] VITALS: TEMP 98
[2023-10-31 07:09] VITALS: BP 125/82; O2SAT 95
--- NOTE | 2023-10-31 11:42 | RAD REPORT ---
EXAM DESCRIPTION: CT - Chest Abd Pelvis Wo Con - 10/31/2023 6:59 am CLINICAL HISTORY: CHEST PAIN COMPARISON: None. TECHNIQUE: CT CHEST ABDOMEN PELVIS WITHOUT IV CONTRAST on 10/31/2023 2:17 AM CDT This exam was performed according to our departmental dose-optimization program, which includes autom ated exposure control, adjustment of the mA and/or kV according to patient size and/or use of iterati ve reconstruction technique. FINDINGS: Chest: The heart is normal in size. There is no pericardial effusion. Intrathoracic lymph nodes are not enlarged. There is fluid throughout the proximal half of the esophagus. There is no pleural effusion, pleural thickening or pneumothorax. Central airways are patent. Lungs a re clear with no consolidation, mass or interstitial lung disease. Abdomen: The liver is normal in appearance. There is no biliary dilatation. Gallbladder is normal in appearance. The pancreas and spleen are normal in appearance. Adrenal glands are normal. Mid to upper pole right renal cyst measures 2.4 cm. There is minimal right hydronephrosis with no clear etiology. Abdominal aorta is normal in course and caliber without aneurysm. There is no free air. There is no r etroperitoneal adenopathy. Pelvis: There is large amount stool throughout the colon. Urinary bladder is unremarkable. There is n o free fluid. Appendix is not clearly seen. Skeleton: There are no acute osseous findings. No suspicious bony lesions. IMPRESSION: Minimal right hydronephrosis without a clear etiology. Fluid throughout the proximal half of the esophagus. Right Bosniak I/Bosniak II benign renal cyst measuring 2.4 cm. No follow-up imaging is recommended. JACR 2018 Jun; [id number], Management of the Incidental Renal Mass on CT, [employer] 2020; [id number], B osniak Classification of Cystic Renal Masses, Version 2019. Electronically signed by: Fran Reynolds MD 10/31/2023 05:52 AM CDT RP Due to temporary technical issues with the PACS/Fluency reporting system, reports are being signed by the in house radiologist without review as a courtesy to ensure prompt reporting. The interpreting r adiologist is fully responsible for the content of the report.
--- NOTE | 2023-10-31 16:16 | EKG ---
Test Date: 2023-10-31 Test Time: 02:51:19 [employer]: CORNEL MEASUREMENT RESULTS: Intervals: Rate: 83 AK: 162 QRSD: 82 QT: 358 QTc: 420 [place]: P: 61 AK: 162 QRS: 26 T: 31 INTERPRETIVE STATEMENTS: Normal sinus rhythm Normal ECG Compared to ECG 09/08/2023 23:00:31 No significant changes Electronically Signed On 10-31-23 16:15:57 CDT by Juanjose Polk
== END 2023-10-31 06:45 | disposition home or self-care (01) ==
LOC: ER 02:14
DX: K21.9 Gastro-esophageal reflux disease without esophagitis (principal)
CPT/HCPCS: 36415; 71250; 74176; 80048; 80076; 83690; 83735; 83880; 84484; 85025; 85610; 93005; 99284; J0500; J2405

== ENCOUNTER 2023-12-14 02:16 | Emergency (ER) | payer OTHER ==
[2023-12-14] MEDS ORDERED: ONDANSETRON 4 MG/2 ML VIAL ONE (02:42)
[2023-12-14] MEDS ORDERED: ASPIRIN 81 MG CHEWABLE TABLET ONE (02:42)
[2023-12-14] MEDS ORDERED: FUROSEMIDE 40 MG/4 ML VIAL ONE (02:43)
[2023-12-14] MEDS ORDERED: MORPHINE 4 MG/ML SYR ONE (02:43)
[2023-12-14 02:45] LABS: Absolute Eosinophils 0.1 K/uL (0-0.5); Absolute Monocytes 0.5 K/uL (0.1-1.3); Absolute Neutrophil 1.5 K/uL (1.8-8.0); Basophils % 0.8 % (0-1.3); Hematocrit 36.9 % (36.0-45.0); Hemoglobin 12.4 g/dL (12.0-15.0); Lymphocytes % 31.2 % (15.3-44.8); MCH 31.5 pg (27.0-35.0); MCHC 33.5 g/dL (32.0-36.0); MCV 93.8 fL (80-100); MPV 6.7 fL (7.6-11.3); Monocytes % 16.7 % (3.3-12.3); Neutrophils % 49.3 % (41.7-73.7); Nucleated Red Blood Cells % 0.1 % (0-0); Platelets 271 thou/uL (152-406); RBC Red Blood Cell Count 3.94 M/uL (3.86-4.86); Red Cell Distribution Width 17.9 % (12.1-15.2)
[2023-12-14 02:52] LABS: PT Prothrombin Time 10.3 SECONDS (9.4-12.5); Protime INR 0.92
[2023-12-14 03:04] LABS: ALT/SGPT 33 U/L (13-56); AST/SGOT 34 U/L (15-37); Albumin 3.3 g/dL (3.4-5.0); Alkaline Phosphatase 90 U/L (45-117); Anion Gap 6.9 mEq/L (5.0-15.0); BUN Blood Urea Nitrogen 12 mg/dL (7-18); Bicarbonate 28 mEq/L (21-32); Bilirubin Total 0.3 mg/dL (0.2-1.0); Globulin 3.4 g/dL (2.3-3.5); Glomerular Filtration Rate 98 ml/min (=/>90); Glucose Level 122 mg/dL (74-106); Magnesium 1.8 mg/dL (1.6-2.4); NT PRO-BNP 22 pg/mL (<125); Potassium 3.9 mEq/L (3.5-5.1); Protein, Total 6.7 g/dL (6.4-8.2); Sodium Level 139 mEq/L (136-145); Troponin High Sensitivity 4.7 pg/mL (<58.9)
[2023-12-14 03:07] LABS: Bilirubin Direct < 0.2 mg/dL (0-0.2); Bilirubin Indirect, Calculated 0.1 mg/dL (0.2-0.8)
--- NOTE | 2023-12-14 06:02 | EDPHYS ---
Physician Documentation [facility] Name: Audrey Rushing Age: 68 yrs Sex: Female : 1955 Arrival Date: 12/14/2023 Time: 02:16 Bed 18 Private MD: ED Physician Son Judge HPI: 12/13 02:27 This 68 yrs old Female presents to ER via Unassigned with complaints of sp4 Dyspnea . 05:56 68-year-old female presents with EMS for complaint of bilateral foot pain and swelling sp4 also some shortness of breath. Was recently prescribed Lasix by her primary care physician but she has not started it yet. . Historical: - Allergies: 02:31 Talwin; al5 02:31 TETRACYCLINES; al5 - PMHx: 02:31 Congestive heart failure; Bipolar disorder; al5 - PSHx: 02:31 hysterectomy; tennis elbow; al5 - Immunization history:: Adult Immunizations up to date. - Infectious Disease History:: Denies. - Social history:: Smoking status: Patient denies any tobacco usage or history of. - Family history:: not pertinent. ROS: 05:56 Constitutional: Negative for fever, chills, and weight loss, positive lower extremity sp4 swelling positive shortness of breath 05:56 All other systems are negative, Exam: 05:48 Constitutional: This is a well developed, well nourished patient who is awake, alert, sp4 and in no acute distress. Head/Face: Normocephalic, atraumatic. Eyes: Pupils equal round and reactive to light, extra-ocular motions intact. Lids and lashes normal. Conjunctiva and sclera are not injected. Cornea within normal limits. Periorbital areas with no swelling, redness, or edema. ENT: Nares patent. No nasal discharge, no septal abnormalities noted. Tympanic membranes are normal and external auditory canals are clear. Oropharynx with no redness, swelling, or masses, exudates, or evidence of obstruction, uvula midline. Mucous membranes moist. Neck: Trachea midline, no thyromegaly or masses palpated, and no cervical lymphadenopathy. Supple, full range of motion without nuchal rigidity, or vertebral point tenderness. Chest/axilla: Normal chest wall appearance and motion. Nontender with no deformity. No lesions are appreciated. Cardiovascular: Regular rate and rhythm with a normal S1 and S2. No gallops, murmurs, or rubs. Normal PMI, no JVD. No pulse deficits. Respiratory: Lungs have equal breath sounds bilaterally, clear to auscultation and percussion. No rales, rhonchi or wheezes noted. No increased work of breathing, no retractions or nasal flaring. Abdomen/GI: Soft, with normal bowel sounds. No distension or tympany. No guarding or rebound. No evidence of tenderness throughout. Back: No spinal tenderness. No costovertebral tenderness. Skin: Warm, dry with normal turgor. Normal color with no rashes, no lesions, and no evidence of cellulitis. MS/ Extremity: Pulses equal, no cyanosis. Neurovascular intact. Full, normal range of motion. Neuro: Awake and alert, GCS 15, oriented to person, place, time, and situation. Cranial nerves II-XII grossly intact. Motor strength 5/5 in all extremities. Sensory grossly intact. Psych: Awake, alert, with orientation to person, place and time. Behavior, mood, and affect are within normal limits 05:48 ECG was reviewed by the Attending Physician. EKG at 0 243 normal sinus rhythm normal EKG rate 82 Vital Signs: 02:17 BP 133 / 80; Pulse 90; Resp 18; Pulse Ox 98% on R/A; al5 02:28 BP 140 / 82; Pulse 94; Resp 16; Temp 98.1; Pulse Ox 100% ; Weight 75.3 kg; Height 5 ft. al5 3 in. ; Pain 3/10; 02:30 BP 106 / 70; Pulse 79; Resp 18; Pulse Ox 98% on R/A; al5 03:00 BP 92 / 66; Pulse 79; Resp 18; Pulse Ox 95% ; al5 03:30 BP 104 / 81; Pulse 89; Resp 18; Pulse Ox 98% on R/A; al5 04:00 BP 106 / 68; Pulse 86; Resp 18; Pulse Ox 96% on R/A; al5 04:30 BP 100 / 81; Pulse 85; Resp 18; Pulse Ox 98% on R/A; al5 05:00 BP 107 / 86; Pulse 94; Resp 18; Pulse Ox 98% on R/A; al5 05:30 BP 107 / 82; Pulse 80; Resp 18; Pulse Ox 98% on R/A; al5 02:28 Body Mass Index 29.41 (75.30 kg, 160.02 cm) al5 02:28 Pain Scale: Adult al5 Taco Coma Score: 05:48 Eye Response: spontaneous(4). Motor Response: obeys commands(6). Verbal Response: sp4 oriented(5). Total: 15. MDM: 02:28 Patient medically screened. sp4 05:47 ED course: EXAM DESCRIPTION: CHEST SINGLE VIEW CLINICAL HISTORY: Chest pain. sp4 COMPARISON: XR Chest 02/21/2023. FINDINGS: 1 view(s) of the chest. Tubes and lines: Leads overlie the chest. Cardiomediastinal silhouette: Atherosclerotic calcification of thoracic aorta. Heart is not enlarged. Lungs: No consolidation, pneumothorax, or pleural effusion. Stable senescent changes. Low lung volumes. Bones: No acute osseous abnormality. Degenerative change of the spine and shoulders. Upper abdomen: No abnormality identified. IMPRESSION: 1. No acute pulmonary process identified. . 05:56 Differential diagnosis: Anxiety Reaction Psychogenic pulmonary edema, Pulmonary sp4 Embolism. Data reviewed: vital signs, nurses notes, lab test result(s), EKG, radiologic studies, plain films. ED course: No signs of heart failure no sign of kidney failure. Stable for discharge home. 12/13 02:28 Order name: Basic Metabolic Panel; Complete Time: 05:44 sp4 12/13 02:28 Order name: CBC with Diff; Complete Time: 05:44 sp4 12/13 02:28 Order name: LFT's; Complete Time: 05:44 sp4 12/13 02:28 Order name: Magnesium; Complete Time: 05:44 sp4 12/13 02:28 Order name: NT PRO-BNP; Complete Time: 05:44 sp4 12/13 02:28 Order name: PT-INR; Complete Time: 05:44 sp4 12/13 02:28 Order name: Troponin HS; Complete Time: 05:44 sp4 12/13 02:28 Order name: XRAY Chest (1 view) sp4 12/13 02:28 Order name: EKG; Complete Time: 02:28 sp4 12/13 02:28 Order name: Cardiac monitoring sp4 12/13 02:28 Order name: EKG - Nurse/Tech; Complete Time: 02:49 sp4 12/13 02:28 Order name: IV Saline Lock; Complete Time: 02:36 sp4 12/13 02:28 Order name: Labs collected and sent; Complete Time: 02:36 sp4 12/13 02:28 Order name: O2 Per Protocol; Complete Time: 02:36 sp4 12/13 02:28 Order name: O2 Sat Monitoring; Complete Time: 02:36 sp4 EC:48 Rate is 82 beats/min. Rhythm is regular, Normal Sinus Rhythm. QRS [place] is Normal. [place] sp4 interval is normal. QRS interval is normal. QT interval is normal. No Q waves. T waves are Normal. No ST changes noted. Clinical impression: Normal ECG. Interpreted by me. Reviewed by me. Administered Medications: 02:55 Drug: Furosemide IVP 40 mg IVP once; give over 2 minutes Route: IVP; Site: right wrist; al5 06:15 Follow up: Response: No adverse reaction al5 02:55 Drug: morphine IVP or IV 4 mg IVP once over 4 mins Route: IVP; Infused Over: 4 mins; al5 Site: right wrist; 06:15 Follow up: Response: No adverse reaction al5 02:55 Drug: Ondansetron IVP 4 mg IVP once; over 2 minutes Route: IVP; Site: right wrist; al5 06:15 Follow up: Response: No adverse reaction al5 02:56 Drug: Aspirin PO Chewable Tablet 324 mg PO once; 81 mg tablets x 4 Route: PO; al5 06:16 Follow up: Response: No adverse reaction al5 Disposition Summary: 12/14/23 06:02 Discharge Ordered Problem: new sp4 Symptoms: have improved sp4 Condition: Stable sp4 Diagnosis - Dyspnea sp4 - Chest pain, unspecified sp4 - Localized edema sp4 - Acute bilateral lower extremity edema sp4 Followup: sp4 - With: Private Physician - When: 7 - 10 days - Reason: Recheck today's complaints Discharge Instructions: - Discharge Summary Sheet sp4 - Edema, [id number] sp4 Forms: - Patient Portal Instructions sp4 Signatures: Dispatcher [employer] Son Astudillo MD MD sp4 Nayely Her RN RN al5 Corrections: (The following items were deleted from the chart) 02:28 02:28 BASIC METABOLIC PANEL+C.LAB.BRZ ordered. EDMS EDMS 02: 02:28 CBC+H.LAB.BRZ ordered. EDMS EDMS 02: 02:28 HEPATIC FUNCTION+C.LAB.BRZ ordered. EDMS EDMS 02: 02:28 MAGNESIUM+C.LAB.BRZ ordered. EDMS EDMS 02: 02:28 PROBNP+C.LAB.BRZ ordered. EDMS EDMS 02: 02:28 PROTIME (+INR)+COAG.LAB.BRZ ordered. EDMS EDMS 02: 02:28 Troponin High Sensitivity+C.LAB.BRZ ordered. EDMS EDMS
--- NOTE | 2023-12-14 06:02 | ER ---
Nurse's Notes [facility] Name: Audrey Rushing Age: 68 yrs Sex: Female : 1955 Arrival Date: 12/14/2023 Time: 02:16 Bed 18 Private MD: Diagnosis: Dyspnea;Chest pain, unspecified;Localized edema;Acute bilateral lower extremity edema Presentation: 12/13 02:28 Chief complaint: Patient states: c/o sob x1 hour, bilateral leg swelling going on for a al5 while, just was prescribed diuretics today and supposed to start them tomorrow. Coronavirus screen: At this time, the client does not indicate any symptoms associated with coronavirus-19. Ebola Screen: No symptoms or risks identified at this time. Initial Sepsis Screen: Does the patient meet any 2 criteria? HR > 90 bpm. No. Patient's initial sepsis screen is negative. Does the patient have a suspected source of infection?. Risk Assessment: Do you want to hurt yourself or someone else? Patient reports no desire to harm self or others. Onset of symptoms was December 14, 2023. Care prior to arrival: IV initiated. 20 GA, in the right wrist. 02:28 Method Of Arrival: EMS: [facility] al5 02:28 Acuity: DHEERAJ 3 al5 Triage Assessment: 02:31 General: Appears in no apparent distress. Behavior is calm, cooperative. Pain: al5 Complains of pain in left seventh rib, left eighth rib, left ninth rib and left tenth rib Pain currently is 3 out of 10 on a pain scale. EENT: No signs and/or symptoms were reported regarding the EENT system. Neuro: Level of Consciousness is awake, alert, obeys commands, Oriented to person, place, time, situation, Appropriate for age. Cardiovascular: Patient's skin is warm and dry. nonpitting edema in bilateral legs. Respiratory: Reports shortness of breath at rest on exertion since past hour Airway is patent Respiratory effort is even, unlabored, Respiratory pattern is regular, symmetrical, Onset: The symptoms/episode began/occurred today, the patient has mild shortness of breath. GI: No signs and/or symptoms were reported involving the gastrointestinal system. : No signs and/or symptoms were reported regarding the genitourinary system. Derm: Skin is intact, Skin is pink, warm \T\ dry. normal, bilateral nonpitting edema in legs. Musculoskeletal: Reports pain in L side ribs. Historical: - Allergies: 02:31 Talwin; al5 02:31 TETRACYCLINES; al5 - PMHx: 02:31 Congestive heart failure; Bipolar disorder; al5 - PSHx: 02:31 hysterectomy; tennis elbow; al5 - Immunization history:: Adult Immunizations up to date. - Infectious Disease History:: Denies. - Social history:: Smoking status: Patient denies any tobacco usage or history of. - Family history:: not pertinent. Screenin:34 [facility] ED Fall Risk Assessment (Adult) History of falling in the last 3 months, al5 including since admission No falls in past 3 months (0 pts) Confusion or Disorientation No (0 pts) Intoxicated or Sedated No (0 pts) Impaired Gait No (0 pts) Mobility Assist Device Used No (0 pt) Altered Elimination No (0 pt) Score/Fall Risk Level 0 - 2 = Low Risk Oriented to surroundings, Maintained a safe environment, Hourly rounding (assess needs \T\ fall precautionary measures) done. Abuse screen: Denies threats or abuse. Denies injuries from another. Nutritional screening: No deficits noted. Tuberculosis screening: No symptoms or risk factors identified. Assessment: 02:30 General: see triage assessment. al5 03:24 Reassessment: Patient appears in no apparent distress at this time. No changes from al5 previously documented assessment. Patient and/or family updated on plan of care and expected duration. Pain level reassessed. Patient is alert, oriented x 3, equal unlabored respirations, skin warm/dry/pink. Cardiovascular: Rhythm is sinus rhythm. Respiratory: Airway is patent Respiratory effort is even, unlabored, Respiratory pattern is regular, symmetrical. 03:24 General: patient has urinated twice, of straw clear color, roughly about 150-200 mL of al5 urine output. only given 1 8 oz glass of water.. 04:46 Reassessment: Patient appears in no apparent distress at this time. No changes from al5 previously documented assessment. Patient and/or family updated on plan of care and expected duration. Pain level reassessed. Patient is alert, oriented x 3, equal unlabored respirations, skin warm/dry/pink. patient has urinated twice, both of clear straw like color. put out around 250-300 mL each. only given two 8 oz glasses of water.. 05:53 Reassessment: Patient appears in no apparent distress at this time. No changes from al5 previously documented assessment. Patient and/or family updated on plan of care and expected duration. Pain level reassessed. Patient is alert, oriented x 3, equal unlabored respirations, skin warm/dry/pink. Vital Signs: 02:17 BP 133 / 80; Pulse 90; Resp 18; Pulse Ox 98% on R/A; al5 02:28 BP 140 / 82; Pulse 94; Resp 16; Temp 98.1; Pulse Ox 100% ; Weight 75.3 kg; Height 5 ft. al5 3 in. ; Pain 3/10; 02:30 BP 106 / 70; Pulse 79; Resp 18; Pulse Ox 98% on R/A; al5 03:00 BP 92 / 66; Pulse 79; Resp 18; Pulse Ox 95% ; al5 03:30 BP 104 / 81; Pulse 89; Resp 18; Pulse Ox 98% on R/A; al5 04:00 BP 106 / 68; Pulse 86; Resp 18; Pulse Ox 96% on R/A; al5 04:30 BP 100 / 81; Pulse 85; Resp 18; Pulse Ox 98% on R/A; al5 05:00 BP 107 / 86; Pulse 94; Resp 18; Pulse Ox 98% on R/A; al5 05:30 BP 107 / 82; Pulse 80; Resp 18; Pulse Ox 98% on R/A; al5 02:28 Body Mass Index 29.41 (75.30 kg, 160.02 cm) al5 02:28 Pain Scale: Adult al5 Taco [place]a Score: 05:48 Eye Response: spontaneous(4). Motor Response: obeys commands(6). Verbal Response: sp4 oriented(5). Total: 15. ED Course: 02:26 Patient arrived in ED. ss 02:27 Son Judge MD is Attending Physician. sp4 02:28 Nayely Her RN is Primary Nurse. al5 02:30 Triage completed. al5 02:34 Arm band placed on right wrist. Patient placed in the treatment room, on a stretcher. al5 02:35 Patient has correct armband on for positive identification. Placed in gown. Bed in low al5 position. Call light in reach. Side rails up X 1. Provided Education on: processes and procedures. 02:35 No provider procedures requiring assistance completed. Maintain EMS IV. Dressing al5 intact. Good blood return noted. Site clean \T\ dry. Gauge \T\ site: 20G R wrist. 02:36 Basic Metabolic Panel Sent. al5 02:36 CBC with Diff Sent. al5 02:36 LFT's Sent. al5 02:36 Magnesium Sent. al5 02:36 NT PRO-BNP Sent. al5 02:36 PT-INR Sent. al5 02:36 Troponin HS Sent. al5 02:49 EKG done, by ED staff. af3 03:04 XRAY Chest (1 view) In Process Unspecified. EDMS 06:16 IV discontinued, intact, bleeding controlled, No redness/swelling at site. Pressure al5 dressing applied. Administered Medications: 02:55 Drug: Furosemide IVP 40 mg IVP once; give over 2 minutes Route: IVP; Site: right wrist; al5 06:15 Follow up: Response: No adverse reaction al5 02:55 Drug: morphine IVP or IV 4 mg IVP once over 4 mins Route: IVP; Infused Over: 4 mins; al5 Site: right wrist; 06:15 Follow up: Response: No adverse reaction al5 02:55 Drug: Ondansetron IVP 4 mg IVP once; over 2 minutes Route: IVP; Site: right wrist; al5 06:15 Follow up: Response: No adverse reaction al5 02:56 Drug: Aspirin PO Chewable Tablet 324 mg PO once; 81 mg tablets x 4 Route: PO; al5 06:16 Follow up: Response: No adverse reaction al5 Medication: 02:35 VIS not applicable for this client. al5 Outcome: 06:02 Discharge ordered by . sp4 06:16 Discharged to home ambulatory, al5 06:16 Condition: good 06:16 Discharge instructions given to patient, Instructed on discharge instructions, follow up and referral plans. Demonstrated understanding of instructions, follow-up care, 06:16 Patient left the ED. al5 Signatures: Dispatcher [employer] EDMS Agueda Castañeda RN RN ss Potepalov, Sergey, MD MD sp4 Nayely Her RN RN al5 Marya Del Real af3 Corrections: (The following items were deleted from the chart) 05:20 03:24 Cardiovascular: Rhythm is sinus rhythm al5 al5
[2023-12-14 10:20] VITALS: TEMP 98.1
[2023-12-14 10:25] VITALS: O2SAT 98
[2023-12-14 10:27] VITALS: BP 107/82
--- NOTE | 2023-12-14 18:18 | RAD REPORT ---
EXAM DESCRIPTION: CHEST SINGLE VIEW CLINICAL HISTORY: Chest pain. COMPARISON: XR Chest 02/21/2023. FINDINGS: 1 view(s) of the chest. Tubes and lines: Leads overlie the chest. Cardiomediastinal silhouette: Atherosclerotic calcification of thoracic aorta. Heart is not enlarged. Lungs: No consolidation, pneumothorax, or pleural effusion. Stable senescent changes. Low lung volume s. Bones: No acute osseous abnormality. Degenerative change of the spine and shoulders. Upper abdomen: No abnormality identified. IMPRESSION: 1. No acute pulmonary process identified. Electronically signed by: Justin Null DO 12/14/2023 03:51 AM CDT RP [id number] Due to temporary technical issues with the PACS/Fluency reporting system, reports are being signed by the in house radiologists without review as a courtesy to insure prompt reporting. The interpreting radiologist is fully responsible for the content of the report.
--- NOTE | 2023-12-16 17:04 | EKG ---
Test Date: 2023-12-14 Test Time: 02:43:48 Second Hand: AF MEASUREMENT RESULTS: Intervals: Rate: 82 WV: 166 QRSD: 84 QT: 372 QTc: 434 [place]: P: 37 WV: 166 QRS: 47 T: 65 INTERPRETIVE STATEMENTS: Normal sinus rhythm Normal ECG Compared to ECG 10/31/2023 02:51:19 No significant changes Electronically Signed On 12-16-23 16:58:56 CDT by Juanjose Polk
== END 2023-12-14 06:16 | disposition home or self-care (01) ==
LOC: ER 02:16
DX: R06.00 Dyspnea, unspecified (principal); R07.9 Chest pain, unspecified; R60.0 Localized edema
CPT/HCPCS: 93005; 85025; 80048; 36415; 83735; 85610; 80076; 84484; 83880; 71045; 96375; 96374; 99284; J1940; J2405

== ENCOUNTER 2023-12-17 17:16 | Emergency (ER) | payer OTHER ==
--- NOTE | 2023-12-17 18:24 | RAD REPORT ---
EXAM DESCRIPTION: US - Extremity Venous Uni Ltd - 12/17/2023 6:18 pm CLINICAL HISTORY: Knee pain COMPARISON: None. TECHNIQUE: Real-time sonographic evaluation of the left lower extremity deep venous system was perfo rmed. FINDINGS: Normal compressibility, flow augmentation, phasic flow and spontaneous flow is identified in the left lower extremity deep venous system. No intraluminal filling defects seen. IMPRESSION: No DVT in the left lower extremity.
--- NOTE | 2023-12-17 18:40 | RAD REPORT ---
EXAM DESCRIPTION: RAD - Knee Left 3 View - 12/17/2023 6:30 pm CLINICAL HISTORY: PAIN COMPARISON: No comparisons FINDINGS/IMPRESSION: No acute fracture. No malalignment. No significant focal degenerative changes.
--- NOTE | 2023-12-17 19:56 | ER ---
Nurse's Notes [facility] Name: Audrey Rushing Age: 68 yrs Sex: Female : 1955 Arrival Date: 12/17/2023 Time: 17:16 Bed 9 Private MD: Diagnosis: Pain in left lower leg Presentation: 12/16 17:38 Chief complaint: Patient states: Left knee pain/swelling since yesterday. No known nj1 injury. Coronavirus screen: Vaccine status: Patient reports being unvaccinated. Ebola Screen: Patient denies travel to an Ebola-affected area in the 21 days before illness onset. Initial Sepsis Screen: Does the patient meet any 2 criteria? HR > 90 bpm. No. Patient's initial sepsis screen is negative. Does the patient have a suspected source of infection? No. Patient's initial sepsis screen is negative. Risk Assessment: Do you want to hurt yourself or someone else? Patient reports no desire to harm self or others. Onset of symptoms was December 16, 2023. 17:38 Method Of Arrival: Wheelchair [facility] 17:38 Acuity: DHEERAJ 3 nj1 Triage Assessment: 17:41 General: Appears in no apparent distress. comfortable, Behavior is calm, cooperative, nj1 appropriate for age. Pain: Complains of pain in left knee Pain currently is 10 out of 10 on a pain scale. Neuro: Level of Consciousness is awake, alert, obeys commands, Oriented to person, place, time, situation. Cardiovascular: Patient's skin is warm and dry. Respiratory: Airway is patent Respiratory effort is even, unlabored. Historical: - Allergies: 17:40 Talwin; nj1 17:40 TETRACYCLINES; nj1 - PMHx: 17:40 Bipolar disorder; Congestive heart failure; nj1 - PSHx: 17:40 hysterectomy; Tennis Elbow; nj1 - Immunization history:: Client reports having NOT received the Covid vaccine. - Infectious Disease History:: Denies. - Social history:: Smoking status: Patient reports the use of cigarette tobacco products, smokes one-half pack cigarettes per day. Screenin:22 [facility] ED Fall Risk Assessment (Adult) History of falling in the last 3 months, cm10 including since admission No falls in past 3 months (0 pts) Confusion or Disorientation No (0 pts) Intoxicated or Sedated No (0 pts) Impaired Gait No (0 pts) Mobility Assist Device Used No (0 pt) Altered Elimination No (0 pt) Score/Fall Risk Level 0 - 2 = Low Risk Oriented to surroundings, Maintained a safe environment, Hourly rounding (assess needs \T\ fall precautionary measures) done. Abuse screen: Denies threats or abuse. Denies injuries from another. Nutritional screening: No deficits noted. Tuberculosis screening: No symptoms or risk factors identified. Assessment: 20:24 Reassessment: Patient appears in no apparent distress at this time. No changes from cm10 previously documented assessment. Patient and/or family updated on plan of care and expected duration. Pain level reassessed. Patient is alert, oriented x 3, equal unlabored respirations, skin warm/dry/pink. General: Appears in no apparent distress. uncomfortable, Behavior is calm, cooperative. Vital Signs: 17:38 BP 128 / 87; Pulse 93; Resp 18; Temp 97.8(O); Pulse Ox 99% on R/A; Weight 68.04 kg; nj1 Height 5 ft. 3 in. ; Pain 10/10; 17:38 Body Mass Index 26.57 (68.04 kg, 160.02 cm) nj1 17:38 Pain Scale: Adult [facility] ED Course: 17:19 Patient arrived in ED. im 17:21 Mandy Villaseñor [facility]C [facility]. kb 17:21 Sancho Stephen MD is Attending Physician. kb 17:40 Triage completed. nj1 17:41 Arm band placed on right wrist. nj1 18:20 US Extremity Venous Unilateral Ltd In Process Unspecified. EDMS 18:32 Knee Left 3 View XRAY In Process Unspecified. EDMS 20:24 Patient has correct armband on for positive identification. Provided Education on: cm10 Follow-up instructions. Cardiac monitoring not applicable on this patient. 20:24 No provider procedures requiring assistance completed. Patient did not have IV access cm10 during this emergency room visit. Administered Medications: 20:19 Drug: HYDROcodone-acetaminophen PO 5 mg-325 mg 1 tabs PO once Route: PO; nj1 20:22 Follow up: Response: Medication administered at discharge. cm10 Medication: 20:22 VIS not applicable for this client. cm10 Outcome: 19:56 Discharge ordered by . kb 20:24 Discharged to home with crutches, with friend, cm10 20:24 Condition: good 20:24 Discharge instructions given to patient, Instructed on discharge instructions, follow up and referral plans. medication usage, Demonstrated understanding of instructions, follow-up care, medications, Prescriptions given X 1, 20:25 Patient left the ED. cm10 Signatures: Dispatcher [employer] EDVA Mandy Villaseñor, SUPERANNUATION FUNDS MANAGER-C SUPERANNUATION FUNDS MANAGER-Ana M Lucas RN RN nj1 Karely Buchanan Clarissa, RN RN cm10
--- NOTE | 2023-12-17 19:56 | EDPHYS ---
Physician Documentation [facility] Name: Audrey Rushing Age: 68 yrs Sex: Female : 1955 Arrival Date: 12/17/2023 Time: 17:16 Bed 9 Private MD: ED Physician Sancho Stephen HPI: 12/16 20:52 This 68 yrs old Female presents to ER via Wheelchair with complaints of Knee Pain. kb 20:52 Patient is a 68-year-old female who presents for left leg pain and swelling that starts kb in the knee and radiates down towards the ankle that began yesterday. Denies injury or trauma. Denies shortness of breath.. Historical: - Allergies: 17:40 Talwin; nj1 17:40 TETRACYCLINES; nj1 - PMHx: 17:40 Bipolar disorder; Congestive heart failure; nj1 - PSHx: 17:40 hysterectomy; Tennis Elbow; nj1 - Immunization history:: Client reports having NOT received the Covid vaccine. - Infectious Disease History:: Denies. - Social history:: Smoking status: Patient reports the use of cigarette tobacco products, smokes one-half pack cigarettes per day. ROS: 20:52 Constitutional: As per HPI kb Exam: 20:52 Constitutional: This is a well developed, well nourished patient who is awake, alert, kb and in no acute distress. Head/Face: Normocephalic, atraumatic. ENT: Moist Mucous membranes Cardiovascular: Regular rate Respiratory: Respirations even and unlabored. No increased work of breathing. Talking in full sentences Skin: Warm, dry with normal turgor. Normal color. Neuro: Awake and alert, GCS 15, oriented to person, place, time, and situation. Moves all extremities. Normal gait. 20:52 Musculoskeletal/extremity: Extremities: grossly normal except: noted in the left knee: pain, tenderness, noted in the left cabrera: swelling, ROM: intact in all extremities, Circulation is intact in all extremities. Sensation intact. Weight bearing: can bear weight with assistance only, Vital Signs: 17:38 BP 128 / 87; Pulse 93; Resp 18; Temp 97.8(O); Pulse Ox 99% on R/A; Weight 68.04 kg; nj1 Height 5 ft. 3 in. ; Pain 10/10; 17:38 Body Mass Index 26.57 (68.04 kg, 160.02 cm) nj1 17:38 Pain Scale: Adult nj1 MDM: 17:21 Patient medically screened. kb 20:53 Differential diagnosis: fracture, sprain, strain, DVT, cellulitis. Data reviewed: vital kb signs, nurses notes. Historians other than the Patient: Friend: Friend. Counseling: I had a detailed discussion with the patient and/or guardian regarding the historical points, exam findings, and any diagnostic results supporting the discharge/admit diagnosis, radiology results, the need for outpatient follow up, a family practitioner, a orthopedic surgeon, to return to the emergency department if symptoms worsen or persist or if there are any questions or concerns that arise at home. ED course: Patient educated on symptomatic treatment and need for follow-up with PCP or orthopedics for further evaluation. Patient has no erythema, warmth to leg, no cellulitis on exam.. 12/16 17:41 Order name: Knee Left 3 View XRAY; Complete Time: 19:10 kb 12/16 17:41 Order name: US Extremity Venous Unilateral Ltd; Complete Time: 18:36 kb Administered Medications: 20:19 Drug: HYDROcodone-acetaminophen PO 5 mg-325 mg 1 tabs PO once Route: PO; nj1 20:22 Follow up: Response: Medication administered at discharge. [id number] Disposition: 12/17 13:56 Co-signature as Attending Physician, Sancho Stephen MD I reviewed the patient's care rn provided by the Advanced Practice Provider and agree with the diagnosis and treatment plan. Disposition Summary: 12/17/23 19:56 Discharge Ordered Notes: Location: Home kb Condition: Stable kb Diagnosis - Pain in left lower leg kb Followup: kb - With: Emergency Department - When: As needed - Reason: Worsening of condition Followup: kb - With: Private Physician - When: 2 - 3 days - Reason: Recheck today's complaints, Continuance of care, Re-evaluation by your physician Discharge Instructions: - Discharge Summary Sheet kb - Musculoskeletal Pain kb Forms: - Medication Reconciliation Form kb - Antibiotic Education kb - Prescription Opioid Use kb - Patient Portal Instructions kb - Leadership Thank You Letter kb Prescriptions: - Diclofenac Sodium 75 mg Oral tablet, delayed release (enteric coated) - take 1 tablet ORAL route 2 times per day As needed; 30 tablet; Refills: 0, kb Product Selection Permitted Signatures: Dispatcher [employer] Mandy Horn, [employer]Ckb Sancho Stephen MD MD rn Ana M Cespedes RN RN nj1 Brigette Dow RN cm10
[2023-12-17] MEDS ORDERED: HYDROCODONE/APAP 5/325 MG TAB ONE (20:15)
[2023-12-18 07:44] VITALS: BP 128/87; TEMP 97.8; O2SAT 99
== END 2023-12-17 20:25 | disposition home or self-care (01) ==
LOC: ER 17:16
DX: M79.662 Pain in left lower leg (principal)
CPT/HCPCS: 93971

== ENCOUNTER 2023-12-28 10:18 | Emergency (ER) | payer OTHER ==
[2023-12-28 11:04] LABS: Absolute Eosinophils 0.1 K/uL (0-0.5); Absolute Lymphocytes (CBC) 0.7 K/uL (0.7-4.9); Absolute Monocytes 0.4 K/uL (0.1-1.3); Absolute Neutrophil 1.8 K/uL (1.8-8.0); Basophils % 0.7 % (0-1.3); Eosinophils % 1.7 % (0-4.4); Hematocrit 36.2 % (36.0-45.0); Hemoglobin 11.9 g/dL (12.0-15.0); Lymphocytes % 22.4 % (15.3-44.8); MCH 30.9 pg (27.0-35.0); MCHC 32.9 g/dL (32.0-36.0); MCV 93.9 fL (80-100); MPV 6.3 fL (7.6-11.3); Monocytes % 13.7 % (3.3-12.3); Neutrophils % 61.5 % (41.7-73.7); Platelets 224 thou/uL (152-406); RBC Red Blood Cell Count 3.86 M/uL (3.86-4.86); Red Cell Distribution Width 17.2 % (12.1-15.2)
[2023-12-28 11:19] LABS: Anion Gap 7.8 mEq/L (5.0-15.0); Potassium 3.8 mEq/L (3.5-5.1); Troponin High Sensitivity 4.9 pg/mL (<58.9)
--- NOTE | 2023-12-28 11:26 | RAD REPORT ---
EXAM DESCRIPTION: US - Extremity Venous Uni Ltd - 12/28/2023 11:17 am CLINICAL HISTORY: Swelling COMPARISON: None. TECHNIQUE: Real-time sonographic evaluation of the left lower extremity deep venous system was perfo rmed. FINDINGS: Normal compressibility, flow augmentation, phasic flow and spontaneous flow is identified in the left lower extremity deep venous system. No intraluminal filling defects seen. IMPRESSION: No DVT in the left lower extremity.
--- NOTE | 2023-12-28 11:40 | RAD REPORT ---
EXAM DESCRIPTION: RAD - Chest Single View - 12/28/2023 11:30 am CLINICAL HISTORY: DYSPNEA COMPARISON: <Comparisons> FINDINGS: Lines: None. Lungs: No evidence of edema or pneumonia. Pleural: No significant pleural effusions or pneumothorax. Cardiac: The heart size is within normal limits. Mediastinum: Within normal limits. Bones: No acute fractures. Other: None IMPRESSION: No acute cardiopulmonary disease.
--- NOTE | 2023-12-28 11:54 | ER ---
Nurse's Notes [facility] Name: Audrey Rushing Age: 68 yrs Sex: Female : 1955 Arrival Date: 12/28/2023 Time: 10:18 Bed 2 Private MD: Diagnosis: Generalized edema Presentation: 12/27 10:19 Chief complaint: EMS states: toned out to pt home for left leg pain - denies injury. ld1 Coronavirus screen: At this time, the client does not indicate any symptoms associated with coronavirus-19. Ebola Screen: No symptoms or risks identified at this time. Initial Sepsis Screen: Does the patient meet any 2 criteria? No. Patient's initial sepsis screen is negative. Does the patient have a suspected source of infection? No. Patient's initial sepsis screen is negative. Risk Assessment: Do you want to hurt yourself or someone else? Patient reports no desire to harm self or others. Onset of symptoms was December 28, 2023. Care prior to arrival: Medication(s) given: 30 mg Ketorolac IM - 975 Tylenol PO. 10:19 Method Of Arrival: EMS: [facility] ld1 10:19 Acuity: DHEERAJ 4 ld1 Triage Assessment: 10:20 General: Appears in no apparent distress. comfortable, Behavior is calm, cooperative, ld1 appropriate for age. Pain: Complains of pain in left leg Pain does not radiate. Pain currently is 8 out of 10 on a pain scale. Quality of pain is described as throbbing, Pain began suddenly, Is continuous. EENT: No signs and/or symptoms were reported regarding the EENT system. Neuro: Level of Consciousness is awake, alert, obeys commands, Oriented to person, place, time, situation, Appropriate for age. Cardiovascular: Capillary refill < 3 seconds Patient's skin is warm and dry. Respiratory: Airway is patent Respiratory effort is even, unlabored. GI: Abdomen is flat, non-distended. : No signs and/or symptoms were reported regarding the genitourinary system. Derm: No signs and/or symptoms reported regarding the dermatologic system. Musculoskeletal: Reports pain and swelling to left leg. Historical: - Allergies: 10:20 Talwin; ld1 10:20 TETRACYCLINES; ld1 - PMHx: 10:20 Bipolar disorder; Congestive heart failure; COPD (December 28, 2023); ld1 - PSHx: 10:20 hysterectomy; Tennis Elbow; ld1 - Immunization history:: Adult Immunizations up to date. - Infectious Disease History:: Denies. - Social history:: Smoking status: Patient denies any tobacco usage or history of. Screenin:21 [facility] ED Fall Risk Assessment (Adult) History of falling in the last 3 months, ld1 including since admission No falls in past 3 months (0 pts) Confusion or Disorientation No (0 pts) Intoxicated or Sedated No (0 pts) Impaired Gait No (0 pts) Mobility Assist Device Used No (0 pt) Altered Elimination No (0 pt) Score/Fall Risk Level 0 - 2 = Low Risk Oriented to surroundings, Maintained a safe environment, Educated pt \T\ family on fall prevention, incl call for assistance when getting out of bed, Assessed \T\ reinforced patient's understanding of fall precautions, Provided non-skid footwear, Hourly rounding (assess needs \T\ fall precautionary measures) done, Used ambulatory aids as needed (educated on \T\ assisted with), Used gait belt as appropriate. Abuse screen: Denies threats or abuse. Denies injuries from another. Nutritional screening: No deficits noted. Tuberculosis screening: No symptoms or risk factors identified. Assessment: 10:21 Reassessment: See triage assessment. ld1 11:49 Reassessment: Patient appears in no apparent distress at this time. No changes from ld1 previously documented assessment. Patient and/or family updated on plan of care and expected duration. Pain level reassessed. Patient is alert, oriented x 3, equal unlabored respirations, skin warm/dry/pink. Vital Signs: 10:41 BP 107 / 71; Pulse 109; Resp 18; Temp 97.8(TE); Pulse Ox 96% on R/A; Weight 72.12 kg; ld1 Height 5 ft. 3 in. ; Pain 5/10; 11:49 BP 112 / 76; Pulse 99; Resp 18; Pulse Ox 97% on R/A; ld1 10:41 Body Mass Index 28.17 (72.12 kg, 160.02 cm) ld1 10:41 Pain Scale: Adult ld1 ED Course: 10:19 Patient arrived in ED. ld1 10:19 Benji Boo PA is PHCP. jr8 10:19 Maurizio Nazario MD is Attending Physician. jr8 10:20 Triage completed. ld1 10:20 Arm band placed on right wrist. ld1 10:21 Patient has correct armband on for positive identification. Placed in gown. Bed in low ld1 position. Call light in reach. Side rails up X2. child monitor on. Pulse ox on. NIBP on. Door closed. Noise minimized. Warm blanket given. 10:21 No provider procedures requiring assistance completed. ld1 10:22 Reina Meier, RN is Primary Nurse. ld1 10:58 Basic Metabolic Panel Sent. ar6 10:58 CBC with Diff Sent. ar6 10:58 NT PRO-BNP Sent. ar6 10:58 Troponin HS Sent. ar6 11:15 EKG done, by ED staff, reviewed by Benji NAYAK. em1 11:18 Extremity Venous Uni Ltd US In Process Unspecified. EDMS 11:32 XRAY Chest (1 view) In Process Unspecified. EDMS 11:58 IV discontinued, intact, bleeding controlled, No redness/swelling at site. ld1 Administered Medications: No medications were administered Medication: 10:21 VIS not applicable for this client. ld1 Outcome: 11:53 Discharge ordered by . jr8 11:58 Discharged to home ambulatory, ld1 11:58 Condition: stable 11:58 Discharge instructions given to patient, Instructed on discharge instructions, follow up and referral plans. Demonstrated understanding of instructions, follow-up care, 11:59 Patient left the ED. ld1 Signatures: Dispatcher [employer] EDHam Guallpa em1 Benji Boo PA PA jr8 Reina Meier, RN RN ld1 Joycelyn Pryor RN RN ar6
--- NOTE | 2023-12-28 11:54 | EDPHYS ---
Physician Documentation [facility] Name: Audrey Rushing Age: 68 yrs Sex: Female : 1955 Arrival Date: 12/28/2023 Time: 10:18 Bed 2 Private MD: ED Physician Maurizio Nazario HPI: 12/27 11:12 This 68 yrs old Female presents to ER via EMS with complaints of Leg Pain. jr8 11:40 The patient presents with pain, swelling. The complaints affect the left leg. Context: jr8 The problem was sustained at home. Onset: The symptoms/episode began/occurred gradually, 2 day(s) ago. Modifying factors: The symptoms are alleviated by nothing. the symptoms are aggravated by nothing. Associated signs and symptoms: The patient has no apparent associated signs or symptoms. Severity of symptoms: At their worst the symptoms were mild, in the emergency department the symptoms are unchanged. The patient has experienced similar episodes in the past, a few times. The patient has not recently seen a physician. Patient with history of shortness of breath and leg swelling in the past. Stated that for the past couple of days has had increased leg swelling. Left greater than right. Denies fall injury or trauma. . Historical: - Allergies: 10:20 Talwin; ld1 10:20 TETRACYCLINES; ld1 - PMHx: 10:20 Bipolar disorder; Congestive heart failure; COPD (December 28, 2023); ld1 - PSHx: 10:20 hysterectomy; Tennis Elbow; ld1 - Immunization history:: Adult Immunizations up to date. - Infectious Disease History:: Denies. - Social history:: Smoking status: Patient denies any tobacco usage or history of. ROS: 11:40 Eyes: Negative for injury, pain, redness, and discharge, ENT: Negative for injury, jr8 pain, and discharge, Neck: Negative for injury, pain, and swelling, Respiratory: Negative for shortness of breath, cough, wheezing, and pleuritic chest pain, Abdomen/GI: Negative for abdominal pain, nausea, vomiting, diarrhea, and constipation, Back: Negative for injury and pain, MS/Extremity: Negative for injury and deformity, Skin: Negative for injury, rash, and discoloration, Neuro: Negative for headache, weakness, numbness, tingling, and seizure, 11:40 Cardiovascular: Positive for edema, Exam: 11:45 Constitutional: This is a well developed, well nourished patient who is awake, alert, jr8 and in no acute distress. Neck: Trachea midline, no thyromegaly or masses palpated, and no cervical lymphadenopathy. Supple, full range of motion without nuchal rigidity, or vertebral point tenderness. No Meningismus. Cardiovascular: Tachycardic with a normal S1 and S2. No gallops, murmurs, or rubs. Normal PMI, no JVD. No pulse deficits. Bilateral pitting edema to lower extremities noted. left greater than right. Mild erythema and warmth to touch of left lower extremity noted. Respiratory: Lungs have equal breath sounds bilaterally, clear to auscultation and percussion. No rales, rhonchi or wheezes noted. No increased work of breathing, no retractions or nasal flaring. Abdomen/GI: Soft, non-tender, with normal bowel sounds. No distension or tympany. No guarding or rebound. No evidence of tenderness throughout. Back: No spinal tenderness. No costovertebral tenderness. Full range of motion. Skin: Warm, dry with normal turgor. Normal color with no rashes, no lesions, and no evidence of cellulitis. MS/ Extremity: Pulses equal, no cyanosis. Neurovascular intact. Full, normal range of motion. Neuro: Awake and alert, GCS 15, oriented to person, place, time, and situation. Cranial nerves II-XII grossly intact. Motor strength 5/5 in all extremities. Sensory grossly intact. Cerebellar exam normal. Normal gait. 11:45 ECG was reviewed by the Attending Physician. 8 Vital Signs: 10:41 BP 107 / 71; Pulse 109; Resp 18; Temp 97.8(TE); Pulse Ox 96% on R/A; Weight 72.12 kg; ld1 Height 5 ft. 3 in. ; Pain 5/10; 11:49 BP 112 / 76; Pulse 99; Resp 18; Pulse Ox 97% on R/A; ld1 10:41 Body Mass Index 28.17 (72.12 kg, 160.02 cm) ld1 10:41 Pain Scale: Adult ld1 MDM: 10:19 Patient medically screened. [facility] 11:50 Differential diagnosis: liver disease, renal disease, DVT, CHF, lymphadema. Data [facility] reviewed: vital signs, nurses notes, lab test result(s), EKG, radiologic studies, ultrasound. 11:54 Counseling: I had a detailed discussion with the patient and/or guardian regarding the historical points, exam findings, and any diagnostic results supporting the discharge/admit diagnosis, lab results, radiology results, the need for outpatient follow up, a family practitioner, to return to the emergency department if symptoms worsen or persist or if there are any questions or concerns that arise at home. ED course: Discussed with patient that there is no acute DVT, vital signs stable at this point, no acute renal disease, cardiac insufficiency, liver disease noted. Likely that this is a sequela of her swelling in the past that could be venous insufficiency or lymphedema related. Needs further workup outpatient [place]. No signs of infection either at this time. Recommended that she follow-up after the weekend if she would have acute change or worsening come back. Patient good with this at this time and will follow-up.. 12/27 10:34 Order name: Basic Metabolic Panel; Complete Time: 11:39 12/27 10:34 Order name: CBC with Diff; Complete Time: 11:09 12/27 10:34 Order name: NT PRO-BNP; Complete Time: 11:39 12/27 10:34 Order name: Troponin HS; Complete Time: 11:39 12/27 10:34 Order name: XRAY Chest (1 view); Complete Time: 11:49 12/27 10:34 Order name: Extremity Venous Uni Ltd US; Complete Time: 11:39 12/27 10:34 Order name: Cardiac monitoring; Complete Time: 10:49 12/27 10:34 Order name: EKG - Nurse/Tech; Complete Time: 10:58 12/27 10:34 Order name: IV Saline Lock; Complete Time: 10:58 12/27 10:34 Order name: Labs collected and sent; Complete Time: 10:58 12/27 10:34 Order name: O2 Per Protocol; Complete Time: 10:38 12/27 10:34 Order name: O2 Sat Monitoring; Complete Time: 10:38 EC:45 Rate is 114 beats/min. Rhythm is regular, Sinus tachycardia. QRS [place] is Normal. MS jr8 interval is normal at 154 msec. QRS interval is normal at 76 msec. QT interval is normal. No Q waves. T waves are Normal. No ST changes noted. Clinical impression: Sinus tachycardia. Interpreted by me. Reviewed by me. Administered Medications: No medications were administered Disposition Summary: 12/28/23 11:53 Discharge Ordered Notes: Location: Home jr8 Problem: new jr8 Symptoms: have improved jr8 Condition: Stable jr8 Diagnosis - Generalized edema jr8 Followup: jr8 - With: Private Physician - When: 2 - 3 days - Reason: Recheck today's complaints, Continuance of care, Re-evaluation by your physician Discharge Instructions: - Discharge Summary Sheet jr8 - Edema jr8 - Peripheral Edema jr8 Forms: - Medication Reconciliation Form jr8 - Antibiotic Education jr8 - Prescription Opioid Use jr8 - Patient Portal Instructions jr8 - Leadership Thank You Letter jr8 Signatures: Dispatcher [employer] EDMS Benji Boo PA PA jr8 Reina Meier RN RN ld1 Corrections: (The following items were deleted from the chart) 10:34 10:34 Chest Single View+RAD.RAD.[email or web address] ordered. EDMS EDMS 10:35 10:35 Extremity Venous Uni Ltd+US.RAD.BRZ ordered. EDMS EDMS 11:46 11:40 Patient with history of shortness of breath and leg swelling in the past. Stated jr8 that for the past couple of days has had increased leg swelling. Right greater than left. Denies fall injury or trauma. . jr8
[2023-12-28 12:04] VITALS: BP 112/76; TEMP 97.8; O2SAT 97
== END 2023-12-28 11:59 | disposition home or self-care (01) ==
LOC: ER 10:18
DX: R60.1 Generalized edema (principal); I50.9 Heart failure, unspecified
CPT/HCPCS: 36415; 71045; 80048; 83880; 84484; 85025; 93005; 93971; 99284

== ENCOUNTER 2024-01-02 22:15 | Emergency (ER) | payer OTHER ==
[2024-01-02] MEDS ORDERED: FUROSEMIDE 40 MG/4 ML VIAL ONE (22:43)
[2024-01-02] MEDS ORDERED: HYDROCODONE/APAP 7.5/325 MG TAB ONE (22:44)
[2024-01-02 23:16] LABS: Absolute Eosinophils 0.1 K/uL (0-0.5); Absolute Lymphocytes (CBC) 0.7 K/uL (0.7-4.9); Absolute Monocytes 0.7 K/uL (0.1-1.3); Absolute Neutrophil 3.7 K/uL (1.8-8.0); Basophils % 0.2 % (0-1.3); Eosinophils % 1.4 % (0-4.4); Hematocrit 33.8 % (36.0-45.0); Hemoglobin 11.3 g/dL (12.0-15.0); Lymphocytes % 13.1 % (15.3-44.8); MCH 31.2 pg (27.0-35.0); MCHC 33.3 g/dL (32.0-36.0); MCV 93.6 fL (80-100); MPV 6.4 fL (7.6-11.3); Monocytes % 12.6 % (3.3-12.3); Neutrophils % 72.7 % (41.7-73.7); Nucleated Red Blood Cells % 0.1 % (0-0); Platelets 279 thou/uL (152-406); RBC Red Blood Cell Count 3.61 M/uL (3.86-4.86); Red Cell Distribution Width 16.8 % (12.1-15.2)
[2024-01-02 23:21] LABS: PT Prothrombin Time 10.3 SECONDS (9.4-12.5); Protime INR 0.92
[2024-01-02 23:39] LABS: ALT/SGPT 41 U/L (13-56); Albumin 3.3 g/dL (3.4-5.0); Alkaline Phosphatase 157 U/L (45-117); Anion Gap 9.3 mEq/L (5.0-15.0); BUN Blood Urea Nitrogen 11 mg/dL (7-18); Bicarbonate 27 mEq/L (21-32); Bilirubin Total 0.3 mg/dL (0.2-1.0); Globulin 3.3 g/dL (2.3-3.5); Glomerular Filtration Rate 99 ml/min (=/>90); Glucose Level 132 mg/dL (74-106); NT PRO-BNP 71 pg/mL (<125); Protein, Total 6.6 g/dL (6.4-8.2); Sodium Level 137 mEq/L (136-145); Troponin High Sensitivity 8.4 pg/mL (<58.9)
[2024-01-02 23:42] LABS: AST/SGOT 34 U/L (15-37); Bilirubin Direct < 0.2 mg/dL (0-0.2); Bilirubin Indirect, Calculated 0.1 mg/dL (0.2-0.8); Magnesium 1.9 mg/dL (1.6-2.4); Potassium 4.3 mEq/L (3.5-5.1)
--- NOTE | 2024-01-03 00:05 | EDPHYS ---
Physician Documentation [facility] Name: Audrey Rushing Age: 68 yrs Sex: Female : 1955 Arrival Date: 01/02/2024 Time: 22:15 Bed 2 Private MD: ED Physician Son Judge HPI: 01/01 22:18 This 68 yrs old Female presents to ER via Unassigned with complaints of shortness of sb4 breath, leg swelling. 22:18 The patient has shortness of breath at rest. sb4 22:22 Bilateral leg swelling and left knee pain for unknown amount of time. Additionally sb4 endorses shortness of breath and dizziness on exertion. Patient states that this has been happening to her frequently and she has been seen in the ED for this several times. She sees Dr. Alvarenga. States that she is prescribed oral Lasix but it is not very effective. She denies any chest pain. Historical: - Allergies: 22:32 Talwin; jj7 22:32 TETRACYCLINES; jj7 - PMHx: 22:32 Bipolar disorder; Congestive heart failure; COPD (December 27); jj7 - PSHx: 22:32 hysterectomy; Tennis Elbow; jj7 - Immunization history:: Adult Immunizations up to date, Client reports having NOT received the Covid vaccine. Flu vaccine is not up to date. - Infectious Disease History:: Denies. - Social history:: Smoking status: Patient reports the use of cigarette tobacco products, 3 CIGS A DAY. ROS: 22:22 Constitutional: Negative for fever, chills, and weight loss, sb4 22:22 Cardiovascular: Positive for edema, 22:22 Respiratory: Positive for dyspnea on exertion, shortness of breath, 22:22 MS/extremity: Positive for pain, of the left knee, 22:22 All other systems are negative, Exam: 22:22 Constitutional: This is a well developed, well nourished patient who is awake, alert, sb4 and in no acute distress. Head/Face: Normocephalic, atraumatic. Eyes: Extra-ocular motions intact. Periorbital areas with no swelling, redness, or edema. ENT: Mucous membranes moist. Respiratory: Lungs have equal breath sounds bilaterally, clear to auscultation and percussion. No rales, rhonchi or wheezes noted. No increased work of breathing, no retractions or nasal flaring. Skin: Warm, dry with normal turgor. Normal color with no rashes, no lesions, and no evidence of cellulitis. MS/ Extremity: Pulses equal, no cyanosis. Neurovascular intact. Full, normal range of motion. 22:22 Cardiovascular: Rate: normal, Rhythm: regular, Edema: 2+ edema to level of left midcalf, left ankle, left foot, left toes, right midcalf, right ankle, right foot and right toes, Vital Signs: 22:16 BP 142 / 85; Pulse 94; Resp 18; Temp 97.4; Pulse Ox 100% on R/A; Weight 72.12 kg; [facility] Height 5 ft. 3 in. ; Pain 10/10; 23:30 BP 140 / 98; Pulse 92; Resp 17; Pulse Ox 97% ; [facility] 01/02 00:15 BP 125 / 74; Pulse 90; Resp 17; Temp 97.6; Pulse Ox 95% on R/A; [facility] 01/01 22:16 Body Mass Index 28.17 (72.12 kg, 160.02 cm) [facility] 01/01 22:16 Pain Scale: Adult [facility] MDM: 01/01 22:17 Patient medically screened. 4 01/02 00:03 Data reviewed: vital signs, nurses notes, EMS record, lab test result(s), EKG, sb4 radiologic studies, and as a result, I will discharge patient. Counseling: I had a detailed discussion with the patient and/or guardian regarding the historical points, exam findings, and any diagnostic results supporting the discharge/admit diagnosis, the presence of at least one elevated blood pressure reading (>120/80) during this emergency department visit, lab results, radiology results, the need for outpatient follow up, a wire welder, to return to the emergency department if symptoms worsen or persist or if there are any questions or concerns that arise at home. 01/01 22:17 Order name: Basic Metabolic Panel; Complete Time: 23:43 sb4 01/01 22:17 Order name: CBC with Diff; Complete Time: 23:23 sb4 01/01 22:17 Order name: LFT's; Complete Time: 23:43 sb4 01/01 22:17 Order name: Magnesium; Complete Time: 23:43 sb4 01/01 22:17 Order name: NT PRO-BNP; Complete Time: 23:43 sb4 01/01 22:17 Order name: PT-INR; Complete Time: 23:23 sb4 01/01 22:17 Order name: Troponin HS; Complete Time: 23:43 sb4 01/01 22:17 Order name: XRAY Chest (1 view) sb4 01/01 22:17 Order name: EKG; Complete Time: 22:18 sb4 01/01 22:17 Order name: Cardiac monitoring; Complete Time: 23:01 sb4 01/01 22:17 Order name: EKG - Nurse/Tech; Complete Time: :47 sb4 01/01 22:17 Order name: IV Saline Lock; Complete Time: 23: sb4 01/01 22:17 Order name: Labs collected and sent; Complete Time: 23: sb4 01/01 22:17 Order name: O2 Per Protocol; Complete Time: 23: sb4 01/01 22:17 Order name: O2 Sat Monitoring; Complete Time: 23: sb4 EC/22 22:47 Rate is 91 beats/min. Rhythm is regular, Normal Sinus Rhythm. AR interval is normal at sb4 176 msec. QRS interval is normal at 78 msec. QT interval is normal at 350 msec. No Q waves. T waves are Normal. No ST changes noted. Clinical impression: Normal ECG and No evidence of ischemia. Interpreted by me. Reviewed by me. Administered Medications: 22:47 Drug: Hydrocodone-Acetaminophen PO (7.5 mg-325 mg) 1 tabs PO once Route: PO; jj7 23:59 Follow up: Response: Pain is decreased jj7 23:09 Drug: Furosemide IVP 40 mg IVP once; give over 2 minutes Route: IVP; Site: left hand; jj7 23:59 Follow up: Response: Marked relief of symptoms jj7 Disposition: 01/02 01:54 Co-signature as Attending Physician, Son Judge MD I agree with the assessment sp4 and plan of care. I reviewed the patient's care provided by the Advanced Practice Provider and agree with the diagnosis and treatment plan. Disposition Summary: 01/03/24 00:04 Discharge Ordered Notes: Location: Home sb4 Problem: an ongoing problem sb4 Symptoms: have improved sb4 Condition: Stable sb4 Diagnosis - Localized edema sb4 - Pain in left leg sb4 - Dyspnea sb4 Followup: sb4 - With: Juanjose Polk MD - When: 2 - 3 days - Reason: Further diagnostic work-up, Recheck today's complaints, Re-evaluation by your physician Discharge Instructions: - Discharge Summary Sheet sb4 - Musculoskeletal Pain sb4 - Peripheral Edema sb4 Forms: - Patient Portal Instructions sb4 - Leadership Thank You Letter sb4 Signatures: Dispatcher [employer] Babak Mills RN RN jj7 Rose Martínez PAMjC PARiana sb4 Son Judge MD MD sp4
--- NOTE | 2024-01-03 00:05 | ER ---
Nurse's Notes [facility] Name: Audrey Rushing Age: 68 yrs Sex: Female : 1955 Arrival Date: 01/02/2024 Time: 22:15 Bed 2 Private MD: Diagnosis: Localized edema;Pain in left leg;Dyspnea Presentation: 01/01 22:16 Chief complaint: Patient states: LEFT LEG SWELLING AND PAIN X 3 WEEKS AND SOB. jj7 Coronavirus screen: At this time, the client does not indicate any symptoms associated with coronavirus-19. Ebola Screen: No symptoms or risks identified at this time. Initial Sepsis Screen: Does the patient meet any 2 criteria? HR > 90 bpm. Yes Does the patient have a suspected source of infection? No. Patient's initial sepsis screen is negative. Risk Assessment: Do you want to hurt yourself or someone else? Patient reports no desire to harm self or others. Note TOOK ADVIL THIS MORNING. Onset of symptoms was December 12, 2023. 22:16 Method Of Arrival: EMS: [facility] jj7 22:16 Acuity: DHEERAJ 3 jj7 Triage Assessment: 22:32 General: Appears in no apparent distress. comfortable, Behavior is calm, cooperative, jj7 appropriate for age. Pain: Complains of pain in left leg. Respiratory: Airway is patent Trachea midline Respiratory effort is even, unlabored, Respiratory pattern is regular, symmetrical. Historical: - Allergies: 22:32 Talwin; jj7 22:32 TETRACYCLINES; jj7 - PMHx: 22:32 Bipolar disorder; Congestive heart failure; COPD (December 27); jj7 - PSHx: 22:32 hysterectomy; Tennis Elbow; jj7 - Immunization history:: Adult Immunizations up to date, Client reports having NOT received the Covid vaccine. Flu vaccine is not up to date. - Infectious Disease History:: Denies. - Social history:: Smoking status: Patient reports the use of cigarette tobacco products, 3 CIGS A DAY. Screenin:35 [facility] ED Fall Risk Assessment (Adult) History of falling in the last 3 months, jj7 including since admission No falls in past 3 months (0 pts) Confusion or Disorientation No (0 pts) Intoxicated or Sedated No (0 pts) Impaired Gait No (0 pts) Mobility Assist Device Used No (0 pt) Altered Elimination No (0 pt) Score/Fall Risk Level 0 - 2 = Low Risk Oriented to surroundings, Maintained a safe environment, Educated pt \T\ family on fall prevention, incl call for assistance when getting out of bed. Abuse screen: Denies threats or abuse. Nutritional screening: No deficits noted. Nutritional screening: No deficits noted. Tuberculosis screening: No symptoms or risk factors identified. Assessment: 22:36 Reassessment: SEE TRIAGE ASSESSMENT. jj7 23:35 Reassessment: LASIX WORKING. PT HAD AN ACCIDENT AND NEEDED LINENS CHANGED. PT CLEANED jj7 UP AND PULL UP APPLIED. LINES CHANGED AND WARM BLANKETS PROVIDED. Vital Signs: 22:16 BP 142 / 85; Pulse 94; Resp 18; Temp 97.4; Pulse Ox 100% on R/A; Weight 72.12 kg; jj7 Height 5 ft. 3 in. ; Pain 10/10; 23:30 BP 140 / 98; Pulse 92; Resp 17; Pulse Ox 97% ; j7 01/02 00:15 BP 125 / 74; Pulse 90; Resp 17; Temp 97.6; Pulse Ox 95% on R/A; jj7 01/01 22:16 Body Mass Index 28.17 (72.12 kg, 160.02 cm) j7 01/01 22:16 Pain Scale: Adult j7 ED Course: 01/01 22:16 Patient arrived in ED. sb4 22:16 Arm band placed on right wrist. Patient placed in an exam room, on a stretcher. jj7 22:17 Rose Martínez PA-C is PHCP. sb4 22:17 Son Judge MD is Attending Physician. sb4 22:27 Babak Jordan RN is Primary Nurse. jj7 22:32 Triage completed. jj7 22:35 Patient has correct armband on for positive identification. Bed in low position. Call jj7 light in reach. Side rails up X2. Provided Education on: USE OF CALL JOHNSON. Warm blanket given. 22:46 EKG done, by ED staff, reviewed by Rose Martínez PA-C. oe 23:10 Basic Metabolic Panel Sent. jj7 23:10 CBC with Diff Sent. jj7 23:10 LFT's Sent. jj7 23:10 Magnesium Sent. jj7 23:10 NT PRO-BNP Sent. jj7 23:10 PT-INR Sent. jj7 23:10 Troponin HS Sent. jj7 23:21 XRAY Chest (1 view) In Process Unspecified. EDMA 01/02 00:03 Juanjose Polk MD is Referral Physician. sb4 00:15 No provider procedures requiring assistance completed. jj7 00:15 IV discontinued, intact, bleeding controlled, No redness/swelling at site. Pressure jj7 dressing applied. Administered Medications: 01/01 22:47 Drug: Hydrocodone-Acetaminophen PO (7.5 mg-325 mg) 1 tabs PO once Route: PO; jj7 23:59 Follow up: Response: Pain is decreased jj7 23:09 Drug: Furosemide IVP 40 mg IVP once; give over 2 minutes Route: IVP; Site: left hand; jj7 23:59 Follow up: Response: Marked relief of symptoms jj7 Medication: 22:35 VIS not applicable for this client. jj7 Outcome: 01/02 00:04 Discharge ordered by . sb4 00:15 Discharged to home via wheelchair, jj7 00:15 Condition: stable 00:15 Discharge instructions given to patient, Instructed on discharge instructions, follow up and referral plans. Demonstrated understanding of instructions, follow-up care, 00:26 Patient left the ED. jj7 Signatures: Dispatcher [employer] [facility] Anam Rockwell Juwairiyah RN RN jjRose Lambert PA-C PARiana sb4
[2024-01-03 00:42] VITALS: BP 125/74; TEMP 97.6; O2SAT 95
--- NOTE | 2024-01-03 13:27 | EKG ---
Test Date: 2024-01-02 Test Time: 22:42:38 Software Developer Manager: DMITRI MEASUREMENT RESULTS: Intervals: Rate: 91 ND: 176 QRSD: 78 QT: 350 QTc: 430 [place]: P: 73 ND: 176 QRS: 63 T: 70 INTERPRETIVE STATEMENTS: Normal sinus rhythm Normal ECG Compared to ECG 12/28/2023 10:55:11 Sinus tachycardia no longer present Electronically Signed On 01-03-24 13:26:13 CDT by Teo Bourne
--- NOTE | 2024-01-06 12:13 | RAD REPORT ---
EXAM DESCRIPTION: RAD - Chest Single View - 01/02/2024 11:20 pm CLINICAL HISTORY: Dyspnea. TECHNIQUE: Frontal view of the chest. COMPARISON: XR Chest 12/14/2023. FINDINGS: Lungs: Coarsened interstitial markings. No focal consolidation. Pleural space: Unremarkable. No pneumothorax. Heart: Unremarkable. No cardiomegaly. Mediastinum: Unremarkable. Normal mediastinal contour. Bones/joints: Unremarkable. No acute fracture. Vasculature: Thoracic aortic atherosclerosis. IMPRESSION: No acute disease. Electronically signed by: Davon Elizondo MD 01/02/2024 11:53 PM CDT Due to temporary technical issues with the PACS/Fluency reporting system, reports are being signed by the in house radiologist without review as a courtesy to ensure prompt reporting. The interpreting r adiologist is fully responsible for the content of the report.
== END 2024-01-03 00:26 | disposition home or self-care (01) ==
LOC: ER 22:15
DX: R60.0 Localized edema (principal); M79.605 Pain in left leg; R06.00 Dyspnea, unspecified; I50.9 Heart failure, unspecified; J44.9 Chronic obstructive pulmonary disease, unspecified; Z72.0 Tobacco use
CPT/HCPCS: 93005; 85025; 80048; 36415; 83735; 85610; 80076; 84484; 83880; 71045; 96374; 99284; J1940

== ENCOUNTER 2024-02-27 13:08 | Emergency (ER) | payer OTHER ==
--- NOTE | 2024-02-27 13:44 | EDPHYS ---
Physician Documentation [facility] Name: Audrey Rushing Age: 68 yrs Sex: Female : 1955 Arrival Date: 02/27/2024 Time: 13:08 Bed IW4 Private MD: ED Physician Ifeanyi Hilliard HPI: 02/26 13:30 This 68 yrs old Female presents to ER via Unassigned with complaints of Pain, Fall cp Injury - ?. 13:30 Patient is a 68-year-old female who presents to the emergency department with concern cp of weakness of her knees and right knee pain. Patient is concerned that she fell sometime this morning but is unsure. Denies any chest pain, abdominal pain, head or neck pain. Patient declines to have any blood work done at this time and or radiology imaging and expresses concern of the cost of the radiologist reading the x-rays. ROS: 13:33 MS/extremity: Positive for weakness of knees and right knee pain, cp 13:33 Eyes: Negative for injury, pain, redness, and discharge, cp 13:33 Constitutional: Negative for body aches, chills, fever, poor PO intake, 13:33 Neck: Negative for pain with movement, pain at rest, stiffness, 13:33 Cardiovascular: Negative for chest pain, 13:33 Respiratory: Negative for cough, shortness of breath, wheezing, 13:33 Neuro: Negative for headache, syncope, 13:33 All other systems are negative, Exam: 13:35 Head/Face: Normocephalic, atraumatic. cp 13:35 Constitutional: The patient appears in no acute distress, alert, awake, non-diaphoretic, non-toxic, well developed, well nourished, 13:35 Neck: ROM/movement: is normal, is supple, without pain, no range of motions limitations, 13:35 Chest/axilla: Inspection: normal, Palpation: is normal, no crepitus, no tenderness, 13:35 Cardiovascular: Rate: tachycardic, 13:35 Respiratory: the patient does not display signs of respiratory distress, Respirations: normal, no use of accessory muscles, no retractions, labored breathing, is not present, Breath sounds: are clear throughout, no decreased breath sounds, no stridor, no wheezing, 13:35 Abdomen/GI: Exam negative for discomfort, distension, guarding, Inspection: abdomen appears normal, 13:35 Back: pain, is absent, ROM is normal, 13:35 Musculoskeletal/extremity: Exam is negative for decreased range of motion, deformity, Extremities: noted in the right knee: tenderness, 13:35 Neuro: Orientation: to person, place \T\ time. Mentation: is normal, Abnormal movements: resting tremor, is located in the right hand and left hand, Vital Signs: 13:28 BP 111 / 53; Pulse 101; Resp 18; Temp 98; Pulse Ox 100% ; ph MDM: 13:27 Medical Screening Exam initiated cp 13:44 Data reviewed: vital signs, nurses notes, and as a result, I will discharge patient. cp 13:44 Differential diagnosis: contusion, fracture, multiple trauma. Refusal of service: The cp patient/guardian displays adequate decision making capability and despite a detailed discussion of alternatives, benefits, risks, and consequences refuses: all lab tests, all X-rays. Administered Medications: No medications were administered Disposition: 17: Co-signature as Attending Physician, Ifeanyi Hilliard MD I reviewed the patient's care rt provided by the Advanced Practice Provider and agree with the diagnosis and treatment plan. Disposition Summary: 02/27/24 13:44 Discharge Ordered Notes: Location: Home cp Problem: new cp Symptoms: have improved cp Condition: Stable cp Diagnosis - Weakness cp - Pain in right knee cp Followup: cp - With: Private Physician - When: 1 - 2 days - Reason: Worsening of condition Discharge Instructions: - Discharge Summary Sheet cp - Elastic Bandage and RICE Therapy cp - Weakness cp - Acute Knee Pain, Adult cp Forms: - Medication Reconciliation Form cp - Antibiotic Education cp - Prescription Opioid Use cp - Patient Portal Instructions cp - Leadership Thank You Letter cp Signatures: Maurizio Lovell PA PA cp Ifeanyi Hilliard MD MD rt
--- NOTE | 2024-02-27 13:44 | ER ---
Nurse's Notes [facility] Name: Audrey Rushing Age: 68 yrs Sex: Female : 1955 Arrival Date: 02/27/2024 Time: 13:08 Bed IW4 Private MD: Diagnosis: Weakness;Pain in right knee Presentation: 02/26 13:28 Chief complaint: Patient states: Unsure if she fell, states that she woke up in her bed ph and had difficulty getting up. C/O bilateral knee pain that is chronic, states, " My doctor says that there's nothing wrong with them.". Coronavirus screen: Vaccine status: Patient reports being unvaccinated. Ebola Screen: No symptoms or risks identified at this time. Initial Sepsis Screen: Does the patient meet any 2 criteria? No. Patient's initial sepsis screen is negative. Does the patient have a suspected source of infection? No. Patient's initial sepsis screen is negative. Risk Assessment: Do you want to hurt yourself or someone else? Patient reports no desire to harm self or others. Onset of symptoms. 13:28 Method Of Arrival: EMS: [facility] 13:28 Acuity: DHEERAJ 4 ph 13:33 Method Of Arrival: EMS: [facility] 13:34 Note Pt states that her sister is on the way to come and get her, that she does not ph want to be evaluated in the ED. Triage Assessment: 13:34 General: Appears in no apparent distress. Behavior is calm, cooperative. Pain: ph Complains of pain in right knee. Vital Signs: 13:28 BP 111 / 53; Pulse 101; Resp 18; Temp 98; Pulse Ox 100% ; ph ED Course: 13:13 Patient arrived in ED. mg5 13:16 Maurizio Lovell PA is PHCP. cp 13:17 Ifeanyi Hilliard MD is Attending Physician. cp 13:34 Triage completed. ph 13:56 Gail Gleason RN is Primary Nurse. ph Administered Medications: No medications were administered Outcome: 13:44 Discharge ordered by . cp 13:56 Patient left the ED. ph Signatures: Agueda Castañeda RN RN Gail Gleason RN RN Maurizio Lovell PA PA Vivian Weir mg5
[2024-02-27 14:04] VITALS: BP 111/53; TEMP 98; O2SAT 100
== END 2024-02-27 13:56 | disposition home or self-care (01) ==
LOC: ER 13:08
DX: R53.1 Weakness (principal); M25.561 Pain in right knee
CPT/HCPCS: 99282

== ENCOUNTER 2024-08-09 17:32 | Emergency (ER) | payer OTHER, MEDICAID ==
[2024-08-09] MEDS ORDERED: KETOROLAC 30 MG/ML INJ ONE (18:25)
[2024-08-09 18:38] LABS: Absolute Monocytes 0.3 K/uL (0.1-1.3); Absolute Neutrophil 2.7 K/uL (1.8-8.0); Basophils % 0.5 % (0-1.3); Eosinophils % 1.1 % (0-4.4); Hematocrit 39.8 % (36.0-45.0); Hemoglobin 13.7 g/dL (12.0-15.0); Lymphocytes % 24.7 % (15.3-44.8); MCH 31.2 pg (27.0-35.0); MCHC 34.5 g/dL (32.0-36.0); MCV 90.5 fL (80-100); MPV 7.4 fL (7.6-11.3); Monocytes % 8.2 % (3.3-12.3); Neutrophils % 65.5 % (41.7-73.7); Nucleated Red Blood Cells % 0.2 % (0-0); Platelets 188 thou/uL (152-406); RBC Red Blood Cell Count 4.39 M/uL (3.86-4.86)
[2024-08-09 18:43] LABS: PT Prothrombin Time 10.6 SECONDS (10-13.0); Protime INR 0.93
--- NOTE | 2024-08-09 18:52 | RAD REPORT ---
EXAM: Chest Single View HISTORY: 69 years Female SOB COMPARISON: 12/31/2023 FINDINGS: LUNGS/PLEURA: The lungs are clear. No pleural effusions or pneumothorax. No pulmonary edema. CARDIAC/MEDIASTINUM: The cardiac silhouette is within normal limits. UPPER ABDOMEN: No significant abnormality. BONES: No acute abnormality. LINES/TUBES/OTHER: N/A IMPRESSION: No evidence of acute cardiopulmonary disease. No significant change from prior.
[2024-08-09 18:55] LABS: ALT/SGPT 30 U/L (13-56); AST/SGOT 22 U/L (15-37); Albumin 3.9 g/dL (3.4-5.0); Albumin/Globulin Ratio 1.1 (1.1-1.8); Alkaline Phosphatase 106 U/L (45-117); Anion Gap 9.9 mEq/L (5.0-15.0); BUN Blood Urea Nitrogen 10 mg/dL (7-18); Bicarbonate 27 mEq/L (21-32); Bilirubin Total 0.2 mg/dL (0.2-1.0); Globulin 3.6 g/dL (2.3-3.5); Glomerular Filtration Rate 99 ml/min (=/>90); Glucose Level 87 mg/dL (74-106); NT PRO-BNP 19 pg/mL (<125); Potassium 3.9 mEq/L (3.5-5.1); Protein, Total 7.5 g/dL (6.4-8.2); Sodium Level 128 mEq/L (136-145); Troponin High Sensitivity 5.9 pg/mL (<58.9)
[2024-08-09 18:56] LABS: Bilirubin Direct < 0.2 mg/dL (0-0.2)
[2024-08-09 19:05] LABS: Influenza A Ag Negative; Influenza B Ag Negative; SARS-CoV-2 Antigen Rapid Res Negative (Negative)
[2024-08-09] MEDS ORDERED: NA CHLORIDE 0.9% 1,000 ML ONE (19:35)
--- NOTE | 2024-08-09 21:03 | EDPHYS ---
Physician Documentation [facility] Name: Audrey Rushing Age: 69 yrs Sex: Female : 1955 Arrival Date: 08/09/2024 Time: 17:32 Bed 13 Private MD: ED Physician Sancho Stephen HPI: 08/09 18:00 This 69 yrs old Female presents to ER via EMS with complaints of Shortness Of Breath, cp Chest Pain. 18:00 The patient has shortness of breath at rest. Onset: The symptoms/episode began/occurred cp today. Associated signs and symptoms: Pertinent positives: chest pain. 18:00 Duration: The symptoms single episode that is now resolved. cp Historical: - Allergies: 17:48 Talwin; me1 17:48 TETRACYCLINES; me1 - PMHx: 17:48 Bipolar disorder; COPD (December 27); Congestive heart failure; me1 - PSHx: 17:48 Tennis Elbow; hysterectomy; me1 - Immunization history:: Adult Immunizations unknown. - Infectious Disease History:: Denies. - Social history:: Smoking status: Patient denies any tobacco usage or history of. ROS: 18:05 Cardiovascular: Positive for chest pain, cp 18:05 Respiratory: Positive for shortness of breath, cp 18:05 Constitutional: Negative for body aches, chills, fever, poor PO intake, cp 18:05 Eyes: Negative for injury, pain, redness, and discharge, cp 18:05 ENT: Negative for drainage from ear(s), ear pain, sore throat, difficulty swallowing, difficulty handling secretions, 18:05 Abdomen/GI: Negative for abdominal pain, vomiting, diarrhea, constipation, 18:05 Back: Negative for pain at rest, pain with movement, 18:05 Neuro: Negative for altered mental status, dizziness, headache, weakness, 18:05 All other systems are negative, Exam: 18:10 Constitutional: The patient appears in no acute distress, alert, awake, cp non-diaphoretic, non-toxic, well developed, well nourished, 18:10 Head/Face: Normocephalic, atraumatic. cp 18:10 Eyes: Periorbital structures: appear normal, Conjunctiva: normal, no exudate, no cp injection, Sclera: no appreciated abnormality, Lids and lashes: appear normal, bilaterally, 18:10 ENT: External ear(s): are unremarkable, Nose: is normal, Mouth: Lips: moist, Oral mucosa: moist, Posterior pharynx: Airway: no evidence of obstruction, patent, 18:10 Neck: ROM/movement: is normal, is supple, without pain, no range of motions limitations, 18:10 Chest/axilla: Inspection: normal, Palpation: crepitus, is not appreciated, tenderness, is not appreciated, 18:10 Cardiovascular: Rate: normal, Rhythm: regular, Edema: is not appreciated, JVD: is not appreciated, 18:10 Respiratory: the patient does not display signs of respiratory distress, Respirations: normal, no use of accessory muscles, no retractions, labored breathing, is not present, Breath sounds: are clear throughout, no decreased breath sounds, no stridor, no wheezing, 18:10 Abdomen/GI: Inspection: abdomen appears normal, Palpation: abdomen is soft and non-tender, in all quadrants, 18:10 Back: pain, is absent, ROM is normal, 18:10 Neuro: Orientation: to person, place \T\ time. Mentation: able to follow commands, Motor: moves all fours, strength is normal, Sensation: no obvious gross deficits, 18:13 ECG was reviewed by the Attending Physician. cp Vital Signs: 17:46 BP 129 / 88; Pulse 90; Resp 18; Temp 98.4; Pulse Ox 97% ; Weight 66.22 kg; Height 5 ft. me1 3 in. ; Pain 0/10; 18:00 BP 117 / 84; Pulse 92; Resp 18; Pulse Ox 96% ; me1 19:05 BP 145 / 94; Pulse 84; Resp 18; Pulse Ox 100% ; rg5 20:33 BP 146 / 99; Pulse 85; Resp 18; Pulse Ox 100% on R/A; rg5 17:46 Body Mass Index 25.86 (66.22 kg, 160.02 cm) me1 17:46 Pain Scale: Adult me1 MDM: 17:41 Medical Screening Exam initiated cp 21:02 Data reviewed: vital signs, nurses notes, lab test result(s), EKG, radiologic studies, cp plain films, and as a result, I will discharge patient. 21:02 Differential diagnosis: CHF exacerbation, Chronic Obstructive Pulmonary Disease cp Myocardial Infarction pneumonia, Pneumothorax pulmonary edema, Pulmonary Embolism Unstable Angina. Care significantly affected by the following chronic conditions: Congestive Heart Failure, Chronic Obstructive Pulmonary Disease. Counseling: I had a detailed discussion with the patient and/or guardian regarding the historical points, exam findings, and any diagnostic results supporting the discharge/admit diagnosis, lab results, radiology results, to return to the emergency department if symptoms worsen or persist or if there are any questions or concerns that arise at home. Special discussion: Based on the patient's history, exam, and Dx evaluation, there is no indication for emergent intervention or inpatient Tx. It is understood by the patient/guardian that if the Sx's persist or worsen they need to return immediately for re-evaluation. 08/09 17:58 Order name: Basic Metabolic Panel; Complete Time: 19:20 cp 08/09 19:20 Interpretation: Normal except: NA 128; CL 95; CA 10.2. cp 08/09 17:58 Order name: CBC with Diff; Complete Time: 19:20 cp 08/09 17:58 Order name: LFT's; Complete Time: 19:20 cp 08/09 17:58 Order name: Magnesium; Complete Time: 19:20 cp 08/09 17:58 Order name: NT PRO-BNP; Complete Time: 19:20 cp 08/09 17:58 Order name: PT-INR; Complete Time: 19:20 cp 08/09 17:58 Order name: Troponin HS; Complete Time: 19:20 cp 08/09 17:58 Order name: COVID-19 Ag + Flu A+B Ag; Complete Time: 19:20 cp 08/09 20:19 Order name: Troponin High Sensitivity: 3 hr repeat; Complete Time: 21:08 cp 08/09 21:09 Interpretation: Reviewed. cp 08/09 17:58 Order name: XRAY Chest (1 view); Complete Time: 19:20 cp 08/09 17:58 Order name: Cardiac monitoring; Complete Time: 18:39 cp 08/09 17:58 Order name: EKG - Nurse/Tech; Complete Time: 18:39 cp 08/09 17:58 Order name: IV Saline Lock; Complete Time: 18:32 cp 08/09 17:58 Order name: Labs collected and sent; Complete Time: 18:32 cp 08/09 17:58 Order name: O2 Per Protocol; Complete Time: 18:04 cp 08/09 17:58 Order name: O2 Sat Monitoring; Complete Time: 18:04 cp EC:13 Rate is 91 beats/min. Rhythm is regular. [place] interval is normal. QRS interval is normal. cp QT interval is normal. T waves are Inverted in leads aVL, aVR. Interpreted by me. Reviewed by me. Administered Medications: 19:40 Drug: NS 0.9% IV 1000 ml IV at 1000 ml once; to be given as a bolus over 60 minutes rg5 Route: IV; Rate: 1000 ml; Site: right antecubital; 20:48 Follow up: IV Status: Completed infusion; IV Intake: 1000ml rg5 21:11 Follow up: IV Status: Completed infusion; IV Intake: 1000ml rg5 Disposition Summary: 08/09/24 21:02 Discharge Ordered Notes: Location: Home cp Problem: new cp Symptoms: are resolved cp Condition: Stable cp Diagnosis - Chest pain, unspecified cp - Shortness of breath cp - Hypo-osmolality and hyponatremia cp Followup: cp - With: Private Physician - When: 2 - 3 days - Reason: Recheck today's complaints Discharge Instructions: - Discharge Summary Sheet cp - Nonspecific Chest Pain, Adult cp - Hyponatremia cp - Shortness of Breath, Adult cp - Aspirin and Your Heart cp Forms: - Medication Reconciliation Form cp - Antibiotic Education cp - Prescription Opioid Use cp - Patient Portal Instructions cp - Leadership Thank You Letter cp Addendum: 08/12/2024 09:00 Co-signature as Attending Physician, Sancho Stephen MD I reviewed the patient's care r n provided by the Advanced Practice Provider and agree with the diagnosis and treatment plan. Signatures: Dispatcher [employer] Sancho Barcenas MD MD rn Page, Corey, PA PA cp Marizol Rae, RN RN me1 Ayan Carvalho, RN RN rg5 Corrections: (The following items were deleted from the chart) 08/09 17:59 17:59 BASIC METABOLIC PANEL+C.LAB.BRZ ordered. EDMS EDMS 17:59 17:59 CBC+H.LAB.BRZ ordered. EDMS EDMS 17:59 17:59 HEPATIC FUNCTION+C.LAB.BRZ ordered. EDMS EDMS 17:59 17:59 MAGNESIUM+C.LAB.BRZ ordered. EDMS EDMS 17:59 17:59 PROBNP+C.LAB.BRZ ordered. EDMS EDMS 17:59 17:59 PROTIME (+INR)+COAG.LAB.BRZ ordered. EDMS EDMS 17:59 17:59 Troponin High Sensitivity+C.LAB.BRZ ordered. EDMS EDMS 17:59 17:59 Chest Single View+RAD.RAD.BRZ ordered. EDMS EDMS 17:59 17:59 COVID-19 Ag + Flu A+B Ag+I.LAB.BRZ ordered. EDMS EDMS
--- NOTE | 2024-08-09 21:03 | ER ---
Nurse's Notes [facility] Name: Audrey Rushing Age: 69 yrs Sex: Female : 1955 Arrival Date: 08/09/2024 Time: 17:32 Bed 13 Private MD: Diagnosis: Chest pain, unspecified;Shortness of breath;Hypo-osmolality and hyponatremia Presentation: 08/09 17:46 Chief complaint: EMS states: toned out for possible heart attack. When EMS arrived me1 patient denied cp. NSR on 12 lead. Reports sob on arrival to ER. Coronavirus screen: At this time, the client does not indicate any symptoms associated with coronavirus-19. Ebola Screen: No symptoms or risks identified at this time. Initial Sepsis Screen: Does the patient meet any 2 criteria? No. Patient's initial sepsis screen is negative. Does the patient have a suspected source of infection? No. Patient's initial sepsis screen is negative. Risk Assessment: Do you want to hurt yourself or someone else? Patient reports no desire to harm self or others. Onset of symptoms was August 09, 2024 at 17:15. 17:46 Method Of Arrival: EMS: [facility] 17:46 Acuity: DHEERAJ 3 me1 Triage Assessment: 17:48 General: Appears in no apparent distress. well groomed, well developed, well nourished, me1 Behavior is calm, cooperative, appropriate for age. Pain: Denies pain. EENT: No signs and/or symptoms were reported regarding the EENT system. Neuro: Level of Consciousness is awake, alert, obeys commands, Oriented to person, place, time, situation, Appropriate for age. Cardiovascular: Patient's skin is warm and dry. Respiratory: Reports shortness of breath at rest on exertion Airway is patent Respiratory effort is even, unlabored, Respiratory pattern is regular, symmetrical, Onset: The symptoms/episode began/occurred just prior to arrival, the patient reports symptoms have resolved. GI: No signs and/or symptoms were reported involving the gastrointestinal system. : No signs and/or symptoms were reported regarding the genitourinary system. Derm: Skin is intact, is healthy with good turgor, Skin is pink, warm \T\ dry. Musculoskeletal: No signs and/or symptoms reported regarding the musculoskeletal system. Historical: - Allergies: 17:48 Talwin; me1 17:48 TETRACYCLINES; me1 - PMHx: 17:48 Bipolar disorder; COPD (December 27); Congestive heart failure; me1 - PSHx: 17:48 Tennis Elbow; hysterectomy; me1 - Immunization history:: Adult Immunizations unknown. - Infectious Disease History:: Denies. - Social history:: Smoking status: Patient denies any tobacco usage or history of. Screenin:53 [facility] ED Fall Risk Assessment (Adult) History of falling in the last 3 months, me1 including since admission No falls in past 3 months (0 pts) Confusion or Disorientation No (0 pts) Intoxicated or Sedated No (0 pts) Impaired Gait No (0 pts) Mobility Assist Device Used No (0 pt) Altered Elimination No (0 pt) Score/Fall Risk Level 0 - 2 = Low Risk Maintained a safe environment, Provided non-skid footwear, Hourly rounding (assess needs \T\ fall precautionary measures) done. Abuse screen: Denies threats or abuse. Nutritional screening: No deficits noted. Tuberculosis screening: No symptoms or risk factors identified. Assessment: 17:53 General: See triage assessment. Cardiovascular: Rhythm is regular. Respiratory: Airway me1 is patent Respiratory effort is even, unlabored, Respiratory pattern is regular, symmetrical, Breath sounds are clear bilaterally. Vital Signs: 17:46 BP 129 / 88; Pulse 90; Resp 18; Temp 98.4; Pulse Ox 97% ; Weight 66.22 kg; Height 5 ft. me1 3 in. ; Pain 0/10; 18:00 BP 117 / 84; Pulse 92; Resp 18; Pulse Ox 96% ; me1 19:05 BP 145 / 94; Pulse 84; Resp 18; Pulse Ox 100% ; rg5 20:33 BP 146 / 99; Pulse 85; Resp 18; Pulse Ox 100% on R/A; rg5 17:46 Body Mass Index 25.86 (66.22 kg, 160.02 cm) me1 17:46 Pain Scale: Adult me1 ED Course: 17:39 Patient arrived in ED. me1 17:41 Maurizio Lovell PA is PHCP. cp 17:41 Sancho Stephen MD is Attending Physician. cp 17:48 Triage completed. me1 17:48 Arm band placed on Patient placed in an exam room. me1 17:53 Patient has correct armband on for positive identification. Bed in low position. Call me1 light in reach. Side rails up X2. Provided Education on: POC. Verbalized understanding.. Client placed on continuous cardiac and pulse oximetry monitoring. NIBP monitoring applied. sheet metal supervisor on. Pulse ox on. NIBP on. 17:53 No provider procedures requiring assistance completed. me1 17:59 Marizol Rae, RN is Primary Nurse. me1 18:32 Inserted saline lock: 20 gauge in left antecubital area, using aseptic technique. Blood am7 collected. Flushed with 10 mL NS. 18:39 EKG done, by ED staff, reviewed by Maurizio NAYAK. me1 18:43 XRAY Chest (1 view) In Process Unspecified. EDMS 21:11 IV discontinued, bleeding controlled, No redness/swelling at site. Pressure dressing rg5 applied. Administered Medications: 19:40 Drug: NS 0.9% IV 1000 ml IV at 1000 ml once; to be given as a bolus over 60 minutes rg5 Route: IV; Rate: 1000 ml; Site: right antecubital; 20:48 Follow up: IV Status: Completed infusion; IV Intake: 1000ml rg5 21:11 Follow up: IV Status: Completed infusion; IV Intake: 1000ml rg5 Medication: 17:53 VIS not applicable for this client. me1 Intake: 20:48 IV: 1000ml; Total: 1000ml. rg5 21:11 IV: 1000ml; Total: 2000ml. rg5 Outcome: 21:02 Discharge ordered by . harper 21:11 Discharged to home ambulatory, rg5 21:11 Condition: stable 21:11 Discharge instructions given to patient, Instructed on discharge instructions, follow up and referral plans. 21:11 Patient left the ED. rg5 Signatures: Dispatcher [employer] EDDE Maurizio Lovell PA PA cp Eddleman, Michelle, RN RN me1 Ayan Carvalho RN RN rg5 Kamini Adams am7
[2024-08-09 21:25] VITALS: TEMP 98.4
[2024-08-09 21:36] VITALS: O2SAT 100
[2024-08-09 21:42] VITALS: BP 146/99
--- NOTE | 2024-08-10 11:18 | EKG ---
Test Date: 2024-08-09 Test Time: 18:07:16 Support Technician: MEASUREMENT RESULTS: Intervals: Rate: 91 FL: 178 QRSD: 76 QT: 362 QTc: 445 Romance: P: 79 FL: 178 QRS: 68 T: 74 INTERPRETIVE STATEMENTS: Normal sinus rhythm Normal ECG Compared to ECG 01/02/2024 22:42:38 No significant changes Electronically Signed On 08-10-24 11:16:34 CDT by Teo Bourne
== END 2024-08-09 21:11 | disposition home or self-care (01) ==
LOC: ER 17:32
DX: R07.9 Chest pain, unspecified (principal); E87.1 Hypo-osmolality and hyponatremia; R06.02 Shortness of breath; I50.9 Heart failure, unspecified; J44.9 Chronic obstructive pulmonary disease, unspecified; Z11.52 Encounter for screening for COVID-19
CPT/HCPCS: 93005; 85025; 80048; 36415; 83735; 85610; 80076; 84484 ×2; 83880; 71045; 96360; 99285; 87428; J7030

== ENCOUNTER 2024-08-12 19:17 | Emergency (ER) | payer OTHER, MEDICAID ==
--- NOTE | 2024-08-12 21:20 | RAD REPORT ---
Procedure: Chest Single View HISTORY: Chest pain COMPARISON: July 2024 FINDINGS: The lungs appear clear of acute infiltrate. No significant pleural effusion noted. The heart is normal size. IMPRESSION: No acute abnormality is displayed.
[2024-08-12 21:22] LABS: Absolute Eosinophils 0.1 K/uL (0-0.5); Absolute Lymphocytes (CBC) 1.1 K/uL (0.7-4.9); Absolute Monocytes 0.3 K/uL (0.1-1.3); Absolute Neutrophil 1.9 K/uL (1.8-8.0); Basophils % 0.4 % (0-1.3); Eosinophils % 1.5 % (0-4.4); Hemoglobin 13.1 g/dL (12.0-15.0); Lymphocytes % 32.2 % (15.3-44.8); MCH 31.2 pg (27.0-35.0); MCHC 34.4 g/dL (32.0-36.0); MCV 90.5 fL (80-100); MPV 7.6 fL (7.6-11.3); Monocytes % 8.6 % (3.3-12.3); Neutrophils % 57.3 % (41.7-73.7); Nucleated Red Blood Cells % 0.2 % (0-0); Platelets 150 thou/uL (152-406); RBC Red Blood Cell Count 4.19 M/uL (3.86-4.86); Red Cell Distribution Width 16.7 % (12.1-15.2)
[2024-08-12 21:24] LABS: Specific Gravity < 1.005 (1.005-1.030); Sqamous Epithelial <5 /HPF (None Seen); Urine Bacteria None Seen /HPF (<20); Urine Bilirubin NEGATIVE (Negative); Urine Blood Negative (Negative); Urine Clarity Clear (Clear); Urine Color Colorless (Yellow); Urine Culture Reflex Order NOT NEEDED; Urine Glucose NEGATIVE (Negative); Urine Ketones NEGATIVE (Negative); Urine Micro Reflex YN NO BILL MICROSCOPIC; Urine Nitrite NEGATIVE (Negative); Urine Protein NEGATIVE (Negative); Urine RBC <5 /HPF (None Seen); Urine Urobilinogen Normal (Normal); Urine WBC <5 /HPF (<5); Urine pH 5.5 (5.0-7.0)
[2024-08-12] MEDS ORDERED: NA CHLORIDE 0.9% 500 ML ONE (21:38)
[2024-08-12 21:39] LABS: Influenza A Ag Negative; Influenza B Ag Negative; SARS-CoV-2 Antigen Rapid Res Negative (Negative)
[2024-08-12 21:49] LABS: ALT/SGPT 31 U/L (13-56); Albumin 3.8 g/dL (3.4-5.0); Albumin/Globulin Ratio 1.1 (1.1-1.8); Alkaline Phosphatase 104 U/L (45-117); Anion Gap 10.1 mEq/L (5.0-15.0); BUN Blood Urea Nitrogen 8 mg/dL (7-18); Bicarbonate 26 mEq/L (21-32); Bilirubin Total 0.2 mg/dL (0.2-1.0); Creatine Phosphokinase 132 U/L (26-192); Globulin 3.4 g/dL (2.3-3.5); Glomerular Filtration Rate 101 ml/min (=/>90); Glucose Level 81 mg/dL (74-106); Protein, Total 7.2 g/dL (6.4-8.2); Sodium Level 127 mEq/L (136-145); Troponin High Sensitivity 8.9 pg/mL (<58.9)
[2024-08-12 21:50] LABS: AST/SGOT 30 U/L (15-37); Bilirubin Direct < 0.2 mg/dL (0-0.2); Magnesium 1.7 mg/dL (1.6-2.4); Potassium 4.1 mEq/L (3.5-5.1)
--- NOTE | 2024-08-12 22:27 | EDPHYS ---
Physician Documentation [facility] Name: Audrey Rushing Age: 69 yrs Sex: Female : 1955 Arrival Date: 08/12/2024 Time: 19:17 Bed 20 Private MD: ED Physician Ifeanyi Hilliard HPI: 08/12 22:36 This 69 yrs old Female presents to ER via EMS with complaints of Body pain. rt 22:36 Patient presents to the ED feeling cold and shaky today. Was seen in the ED a few days rt ago with a negative workup. Denies other acute complaints at this time, symptoms are moderate severity, no other aggravating or alleviating factors.. Historical: - Allergies: 20:05 Talwin; iw 20:05 TETRACYCLINES; iw - PMHx: 20:05 Bipolar disorder; Congestive heart failure; COPD (December 27); iw - PSHx: 20:05 hysterectomy; Tennis Elbow; iw - Immunization history:: Adult Immunizations unknown. - Infectious Disease History:: Denies. - Social history:: Smoking status: Patient denies any tobacco usage or history of. - Family history:: not pertinent. ROS: 22:36 Cardiovascular: Negative for chest pain, palpitations, and edema, Respiratory: Negative rt for shortness of breath, cough, wheezing, and pleuritic chest pain, Abdomen/GI: Negative for abdominal pain, nausea, vomiting, diarrhea, and constipation, MS/Extremity: Negative for injury and deformity, Skin: Negative for injury, rash, and discoloration, Neuro: Negative for headache, weakness, numbness, tingling, and seizure, 22:36 Constitutional: Positive for body aches, chills, malaise, Exam: 22:28 ECG was reviewed by the Attending Physician. rt 22:36 Constitutional: This is a well developed, well nourished patient who is awake, alert, rt and in no acute distress. Head/Face: Normocephalic, atraumatic. Chest/axilla: Normal chest wall appearance and motion. Nontender with no deformity. No lesions are appreciated. Cardiovascular: Regular rate and rhythm with a normal S1 and S2. No gallops, murmurs, or rubs. Normal PMI, no JVD. No pulse deficits. Respiratory: Lungs have equal breath sounds bilaterally, clear to auscultation and percussion. No rales, rhonchi or wheezes noted. No increased work of breathing, no retractions or nasal flaring. Abdomen/GI: Soft, non-tender, with normal bowel sounds. No distension or tympany. No guarding or rebound. No evidence of tenderness throughout. Skin: Warm, dry with normal turgor. Normal color with no rashes, no lesions, and no evidence of cellulitis. MS/ Extremity: Pulses equal, no cyanosis. Neurovascular intact. Full, normal range of motion. Neuro: Awake and alert, GCS 15, oriented to person, place, time, and situation. Cranial nerves II-XII grossly intact. Motor strength 5/5 in all extremities. Sensory grossly intact. Cerebellar exam normal. Normal gait. Vital Signs: 20:17 BP 134 / 92; Pulse 82; Resp 16; Temp 96.5; Pulse Ox 97% on R/A; iw 22:06 BP 152 / 89; Pulse 84; Resp 16; Pulse Ox 99% on R/A; kj2 22:47 BP 148 / 86; Pulse 81; Resp 18; Temp 98; Pulse Ox 100% on R/A; kj2 MDM: 19:45 Medical Screening Exam initiated kb 22:36 Differential Diagnosis Chills, medication side effect, dysrhythmia, electrolyte rt disturbance, flu. Data reviewed: vital signs, nurses notes, lab test result(s), EKG, radiologic studies. Consideration of Admission/Observation Escalation of care including admission/observation considered. Patient with unremarkable workup save for mild hyponatremia which is chronic, symptoms are improved with gentle hydration, no indications for admission at this time, stable for outpatient care.. I considered the following discharge prescriptions or medication management in the emergency department Medications were administered in the Emergency Department. See MAR. Independent interpretation of the following test(s) in the Emergency Department X-Ray: My interpretation is No infiltrate seen on my interpretation of x-ray images. Care significantly affected by the following chronic conditions: Congestive Heart Failure. Counseling: I had a detailed discussion with the patient and/or guardian regarding the historical points, exam findings, and any diagnostic results supporting the discharge/admit diagnosis, lab results, radiology results, the need for outpatient follow up, to return to the emergency department if symptoms worsen or persist or if there are any questions or concerns that arise at home. Response to treatment: the patient's symptoms have markedly improved after treatment. 08/12 20:43 Order name: Basic Metabolic Panel; Complete Time: 21:57 rt 08/12 20:43 Order name: CBC with Diff; Complete Time: 21:57 rt 08/12 20:43 Order name: LFT's; Complete Time: 21:57 rt 08/12 20:43 Order name: Magnesium; Complete Time: 21:57 rt 08/12 20:43 Order name: Troponin HS; Complete Time: 21:57 rt 08/12 20:43 Order name: COVID-19 Ag + Flu A+B Ag; Complete Time: 21:57 rt 08/12 20:43 Order name: UAM; Complete Time: 21:57 rt 08/12 20:43 Order name: CPK; Complete Time: 21:57 rt 08/12 20:43 Order name: TSH; Complete Time: 21:57 rt 08/12 20:43 Order name: XRAY Chest (1 view); Complete Time: 21:22 rt 08/12 20:43 Order name: EKG; Complete Time: 20:44 rt 08/12 20:43 Order name: Cardiac monitoring rt 08/12 20:43 Order name: EKG - Nurse/Tech rt 08/12 20:43 Order name: IV Saline Lock rt 08/12 20:43 Order name: Labs collected and sent rt 08/12 20:43 Order name: O2 Per Protocol rt 08/12 20:43 Order name: O2 Sat Monitoring rt EC:28 Rate is 74 beats/min. Rhythm is regular, Normal Sinus Rhythm with No ectopy. QRS [place] rt is Normal. [place] interval is normal. QRS interval is normal. QT interval is normal. No Q waves. T waves are Normal. No ST changes noted. Interpreted by me. Administered Medications: 20:43 CANCELLED (Patient Refused): ns 0.9% 1000 ml IV at 1 bolus Per protocol; to be given as rt a bolus over 60 minutes 21:44 Drug: NS 0.9% IV 500 ml IV at bolus once; to be given as a bolus over 30 minutes Route: kj2 IV; Rate: bolus; Site: right forearm; 22:51 Follow up: Response: No adverse reaction; IV Status: Completed infusion; IV Intake: kj2 500ml Disposition Summary: 08/12/24 22:26 Discharge Ordered Notes: Location: Home rt Problem: an ongoing problem rt Symptoms: have improved rt Condition: Stable rt Diagnosis - Other malaise rt Followup: rt - With: Private Physician - When: 2 - 3 days - Reason: Discharge Instructions: - Discharge Summary Sheet rt - Fatigue rt Forms: - Medication Reconciliation Form rt - Antibiotic Education rt - Prescription Opioid Use rt - Patient Portal Instructions rt - Leadership Thank You Letter rt Signatures: Dispatcher [employer] EDMS Mandy Villaseñor, BOOM OPERATOR-C BOOM OPERATOR-Ckb Bea Myers, RN RN iw Ifeanyi Hilliard MD MD rt Tiffanie Gamble, DARREN RN kj2 Corrections: (The following items were deleted from the chart) 20:43 20:43 NS 0.9% IV 1000 ml IV at 1 bolus Per protocol; to be given as a bolus over 60 rt minutes ordered. rt 20:44 20:44 BASIC METABOLIC PANEL+C.LAB.BRZ ordered. EDMS EDMS 20:44 20:44 CBC+H.LAB.BRZ ordered. EDMS EDMS 20:44 20:44 HEPATIC FUNCTION+C.LAB.BRZ ordered. EDMS EDMS 20:44 20:44 MAGNESIUM+C.LAB.BRZ ordered. EDMS EDMS 20:44 20:44 Troponin High Sensitivity+C.LAB.BRZ ordered. EDMS EDMS 20:44 20:44 COVID-19 Ag + Flu A+B Ag+I.LAB.BRZ ordered. EDMS EDMS 20:44 20:44 Urinalysis W/Microscopic+U.LAB.BRZ ordered. EDMS EDMS 20:44 20:44 CREATINE PHOSPHOKINASE+C.LAB.BRZ ordered. EDMS EDMS 20:44 20:44 THYROID STIMULAT HORMONE+C.LAB.BRZ ordered. EDMS EDMS
--- NOTE | 2024-08-12 22:27 | ER ---
Nurse's Notes [facility] Name: Audrey Rushing Age: 69 yrs Sex: Female : 1955 Arrival Date: 08/12/2024 Time: 19:17 Bed 20 Private MD: Diagnosis: Other malaise Presentation: 08/12 19:57 Chief complaint: Patient states: feeling cold and shaky today. Ebola Screen: No iw symptoms or risks identified at this time. Initial Sepsis Screen: Does the patient meet any 2 criteria? No. Patient's initial sepsis screen is negative. Does the patient have a suspected source of infection? No. Patient's initial sepsis screen is negative. 19:57 Method Of Arrival: EMS iw 19:57 Acuity: DHEERAJ 3 iw 20:55 Risk Assessment: Do you want to hurt yourself or someone else? Patient reports no kj2 desire to harm self or others. Onset of symptoms was August 12, 2024. 22:50 Coronavirus screen: Client denies travel out of the [place] in the last 14 days. kj2 Historical: - Allergies: 20:05 Talwin; iw 20:05 TETRACYCLINES; iw - PMHx: 20:05 Bipolar disorder; Congestive heart failure; COPD (December 27); iw - PSHx: 20:05 hysterectomy; Tennis Elbow; iw - Immunization history:: Adult Immunizations unknown. - Infectious Disease History:: Denies. - Social history:: Smoking status: Patient denies any tobacco usage or history of. - Family history:: not pertinent. Screenin:54 [facility] ED Fall Risk Assessment (Adult) History of falling in the last 3 months, kj2 including since admission No falls in past 3 months (0 pts) Confusion or Disorientation No (0 pts) Intoxicated or Sedated No (0 pts) Impaired Gait No (0 pts) Mobility Assist Device Used No (0 pt) Altered Elimination No (0 pt) Score/Fall Risk Level 0 - 2 = Low Risk Maintained a safe environment, Hourly rounding (assess needs \T\ fall precautionary measures) done. Abuse screen: Denies threats or abuse. Denies injuries from another. Nutritional screening: No deficits noted. Tuberculosis screening: No symptoms or risk factors identified. Assessment: 20:43 General: Appears in no apparent distress. Behavior is calm, cooperative. Pain: kj2 Complains of pain in generalized Pain currently is 7 out of 10 on a pain scale. Neuro: Level of Consciousness is awake, alert, Oriented to person, place, time, situation. Cardiovascular: Patient's skin is warm and dry. Respiratory: Airway is patent Respiratory effort is even, unlabored. GI: No signs and/or symptoms were reported involving the gastrointestinal system. : No signs and/or symptoms were reported regarding the genitourinary system. 21:45 Reassessment: Patient appears in no apparent distress at this time. Patient and/or kj2 family updated on plan of care and expected duration. Pain level reassessed. Patient is alert, oriented x 3, equal unlabored respirations, skin warm/dry/pink. 22:47 Reassessment: Patient appears in no apparent distress at this time. Patient and/or kj2 family updated on plan of care and expected duration. Pain level reassessed. Patient is alert, oriented x 3, equal unlabored respirations, skin warm/dry/pink. Vital Signs: 20:17 BP 134 / 92; Pulse 82; Resp 16; Temp 96.5; Pulse Ox 97% on R/A; iw 22:06 BP 152 / 89; Pulse 84; Resp 16; Pulse Ox 99% on R/A; kj2 22:47 BP 148 / 86; Pulse 81; Resp 18; Temp 98; Pulse Ox 100% on R/A; kj2 ED Course: 19:22 Patient arrived in ED. im 19:44 Mandy Villaseñor FNP-C is [facility]. kb 19:44 Sancho Stephen MD is Attending Physician. kb 19:57 Triage completed. iw 20:00 Ifeanyi Hilliard MD is Attending Physician. rt 20:17 Arm band placed on. iw 20:35 Tiffanie Gamble RN is Primary Nurse. kj2 20:45 Maintain EMS IV. Dressing intact. Good blood return noted. Site clean \T\ dry. Gauge \T\ kj 2 site: 18g right forearm. Flushed with 10 mL NS. 20:55 Patient has correct armband on for positive identification. Bed in low position. Call kj2 light in reach. Provided Education on: call light. 21:08 XRAY Chest (1 view) In Process Unspecified. EDMS 22:48 No provider procedures requiring assistance completed. IV discontinued, intact, kj2 bleeding controlled, No redness/swelling at site. Pressure dressing applied. Administered Medications: 20:43 CANCELLED (Patient Refused): ns 0.9% 1000 ml IV at 1 bolus Per protocol; to be given as rt a bolus over 60 minutes 21:44 Drug: NS 0.9% IV 500 ml IV at bolus once; to be given as a bolus over 30 minutes Route: kj2 IV; Rate: bolus; Site: right forearm; 22:51 Follow up: Response: No adverse reaction; IV Status: Completed infusion; IV Intake: kj2 500ml Medication: 20:54 VIS not applicable for this client. kj2 Intake: 22:51 IV: 500ml; Total: 500ml. kj2 Outcome: 22:26 Discharge ordered by MD. rt 22:50 Discharged to home ambulatory, kj2 22:50 Condition: stable 22:50 Discharge instructions given to patient, Instructed on discharge instructions, follow up and referral plans. Demonstrated understanding of instructions, follow-up care, 23:06 Patient left the ED. kj2 Signatures: Dispatcher [employer] EDMS Mandy Villaseñor, ANTONIO-C TOOLING MANAGER-Bea Martin, RN RN Ifeanyi Posada MD MD rt Karely Buchanan Krystal, DARREN RN kj2
[2024-08-12 23:14] VITALS: BP 148/86; TEMP 98; O2SAT 100
--- NOTE | 2024-08-14 13:28 | EKG ---
Test Date: 2024-08-12 Test Time: 22:21:31 Bottle Washing Machine Operator: AUDIE MEASUREMENT RESULTS: Intervals: Rate: 74 SD: 200 QRSD: 82 QT: 392 QTc: 435 [place]: P: 58 SD: 200 QRS: 48 T: 65 INTERPRETIVE STATEMENTS: Normal sinus rhythm Normal ECG Compared to ECG 08/09/2024 18:07:16 No significant changes Electronically Signed On 08-14-24 13:19:47 CDT by Teo Bourne
== END 2024-08-12 23:06 | disposition home or self-care (01) ==
LOC: ER 19:17
DX: R53.81 Other malaise (principal); R68.83 Chills (without fever); Z11.52 Encounter for screening for COVID-19
CPT/HCPCS: 93005; 85025; 81001; 80048; 36415; 83735; 82550; 80076; 84443; 84484; 71045; 96360; 99284; 87428; J7040

== ENCOUNTER 2024-08-25 19:01 | Observation (INO) | payer OTHER, MEDICAID ==
[2024-08-25 20:57] LABS: Absolute Eosinophils 0.1 K/uL (0-0.5); Absolute Lymphocytes (CBC) 1.1 K/uL (0.7-4.9); Absolute Monocytes 0.3 K/uL (0.1-1.3); Absolute Neutrophil 2.7 K/uL (1.8-8.0); Basophils % 0.9 % (0-1.3); Eosinophils % 1.3 % (0-4.4); Hematocrit 36.7 % (36.0-45.0); Lymphocytes % 26.7 % (15.3-44.8); MCH 31.4 pg (27.0-35.0); MCHC 35.3 g/dL (32.0-36.0); MCV 88.9 fL (80-100); MPV 7.6 fL (7.6-11.3); Monocytes % 6.5 % (3.3-12.3); Neutrophils % 64.6 % (41.7-73.7); Nucleated Red Blood Cells % 0.2 % (0-0); Platelets 171 thou/uL (152-406); RBC Red Blood Cell Count 4.13 M/uL (3.86-4.86); Red Cell Distribution Width 16.8 % (12.1-15.2)
[2024-08-25 20:59] LABS: PT Prothrombin Time 11.2 SECONDS (10-13.0); Protime INR 0.98
[2024-08-25 21:13] LABS: ALT/SGPT 30 U/L (13-56); AST/SGOT 19 U/L (15-37); Albumin 3.7 g/dL (3.4-5.0); Alkaline Phosphatase 114 U/L (45-117); Anion Gap 10.7 mEq/L (5.0-15.0); BUN Blood Urea Nitrogen 10 mg/dL (7-18); Bicarbonate 26 mEq/L (21-32); Bilirubin Total 0.2 mg/dL (0.2-1.0); Globulin 3.6 g/dL (2.3-3.5); Glomerular Filtration Rate 103 ml/min (=/>90); Glucose Level 88 mg/dL (74-106); Lipase 135 U/L (13-75); Magnesium 1.8 mg/dL (1.6-2.4); NT PRO-BNP 18 pg/mL (<125); Potassium 3.7 mEq/L (3.5-5.1); Protein, Total 7.3 g/dL (6.4-8.2); Sodium Level 126 mEq/L (136-145); Troponin High Sensitivity 7.2 pg/mL (<58.9)
--- NOTE | 2024-08-25 21:13 | RAD REPORT ---
EXAMINATION: ONE VIEW CHEST XR CLINICAL INDICATION: COUGH TECHNIQUE: Frontal chest projection is submitted. Examination is limited by patient positioning and t echnique. COMPARISON: 08/12/2024 FINDINGS: The lungs are diffusely emphysematous but grossly clear. The heart is normal in size. No displaced fr actures identified. IMPRESSION: COPD without an acute process suspected.
--- NOTE | 2024-08-25 21:19 | ER ---
Nurse's Notes [facility] Name: Audrey Rushing Age: 69 yrs Sex: Female : 1955 Arrival Date: 08/25/2024 Time: 19:01 Bed 23 Private MD: Diagnosis: Weakness;Altered mental status, unspecified;Hypothermia, initial encounter;Hypo-osmolality and hyponatremia Presentation: 08/25 19:43 Chief complaint: Patient states: I thought i was having a heart attack because my feet bm8 went cold and numb, so I called 911. Coronavirus screen: At this time, the client does not indicate any symptoms associated with coronavirus-19. Ebola Screen: Patient negative for fever greater than or equal to 101.5 degrees Fahrenheit, and additional compatible Ebola Virus Disease symptoms Patient denies exposure to infectious person. Patient denies travel to an Ebola-affected area in the 21 days before illness onset. No symptoms or risks identified at this time. 19:43 Method Of Arrival: Ambulatory bm8 23:29 Initial Sepsis Screen: Does the patient meet any 2 criteria? Altered Mental Status. No. al5 Patient's initial sepsis screen is negative. Does the patient have a suspected source of infection? No. Patient's initial sepsis screen is negative. Risk Assessment: Do you want to hurt yourself or someone else? Patient reports no desire to harm self or others. Onset of symptoms was August 25, 2024. 23:29 Acuity: DHEERAJ 3 al5 Triage Assessment: 19:44 General: Appears in no apparent distress. comfortable, Behavior is calm, cooperative, bm8 appropriate for age. Pain: Denies pain. EENT: No deficits noted. No signs and/or symptoms were reported regarding the EENT system. Neuro: No deficits noted. Level of Consciousness is awake, alert, obeys commands, Oriented to person, place, time, situation, Appropriate for age Compensation Administrator are equal bilaterally Moves all extremities. Full function Gait is steady, Speech is normal, Facial symmetry appears normal, Pupils are constricted, Intact. Cardiovascular: Denies chest pain, lightheadedness, shortness of breath, Heart tones S1 S2 present Capillary refill < 3 seconds in bilateral fingers. Respiratory: Airway is patent Respiratory effort is even, unlabored, Respiratory pattern is regular, symmetrical, Breath sounds are clear bilaterally. GI: No signs and/or symptoms were reported involving the gastrointestinal system. : No signs and/or symptoms were reported regarding the genitourinary system. Derm: No signs and/or symptoms reported regarding the dermatologic system. Musculoskeletal: No signs and/or symptoms reported regarding the musculoskeletal system. Historical: - Allergies: 19:44 Talwin; bm8 19:44 TETRACYCLINES; bm8 - PMHx: 19:44 Bipolar disorder; Congestive heart failure; COPD (December 27); bm8 - PSHx: 19:44 hysterectomy; Tennis Elbow; bm8 - Immunization history:: Adult Immunizations up to date. - Infectious Disease History:: Denies. - Social history:: Smoking status: Patient reports the use of cigarette tobacco products. - Family history:: not pertinent. Screenin:08 [facility] ED Fall Risk Assessment (Adult) History of falling in the last 3 months, ha1 including since admission Yes- single mechanical fall (1 pt) Confusion or Disorientation Yes (5 pts) Intoxicated or Sedated No (0 pts) Impaired Gait No (0 pts) Mobility Assist Device Used No (0 pt) Altered Elimination No (0 pt) Score/Fall Risk Level 3 or more points = High Risk Oriented to surroundings, Maintained a safe environment, Educated pt \T\ family on fall prevention, incl call for assistance when getting out of bed, Hourly rounding (assess needs \T\ fall precautionary measures) done. Abuse screen: Denies threats or abuse. Denies injuries from another. Nutritional screening: No deficits noted. Tuberculosis screening: No symptoms or risk factors identified. Assessment: 20:20 General: Appears comfortable, Behavior is calm, cooperative. Pain: Denies pain. Neuro: ha1 Level of Consciousness is awake, Oriented to person, place, time, situation, Reports weakness generalized. Cardiovascular: Capillary refill < 3 seconds Patient's skin is warm and dry. Respiratory: Airway is patent Respiratory effort is even, unlabored, Respiratory pattern is regular, symmetrical. GI: Abdomen is round non-distended, obese. : No signs and/or symptoms were reported regarding the genitourinary system. Derm: Skin is pink, warm \T\ dry. Musculoskeletal: Circulation, motion, and sensation intact. 20:35 Reassessment: PATIENT PLACED ON A FEI HUGGER HEATER. ha1 21:00 Reassessment: Patient and/or family updated on plan of care and expected duration. Pain ha1 level reassessed. SPOKE TO FAMILY MEMBER TO INFORM OF PATIENT BEING AT THE ER, REQUESTED BY the PATIENT. 21:06 Reassessment: PATIENT SISTER TRIPP [phone]. ha1 23:29 Reassessment: Patient appears in no apparent distress at this time. No changes from al5 previously documented assessment. Patient and/or family updated on plan of care and expected duration. Pain level reassessed. Vital Signs: 19:43 BP 146 / 99; Pulse 70; Resp 18; Temp 94; Pulse Ox 100% ; Weight 63.96 kg; Height 5 ft. bm8 3 in. ; Pain 0/10; 20:00 BP 131 / 92; Pulse 73; Resp 17 S; Temp 92(R); Pulse Ox 98% on R/A; ha1 21:00 BP 124 / 65; Pulse 71; Resp 17 S; Temp 91.8; Pulse Ox 96% on R/A; ha1 22:56 BP 118 / 99; Pulse 82; Resp 17 S; Temp 92.1; Pulse Ox 96% on R/A; ha1 23:00 BP 118 / 82; Pulse 73; Resp 14; Temp 92.7; Pulse Ox 94% ; al5 08/26 00:00 BP 121 / 87; Pulse 79; Resp 13; Temp 94.8; Pulse Ox 94% on R/A; al5 00:30 BP 127 / 70; Pulse 80; Resp 13; Temp 95.0; Pulse Ox 95% on R/A; ha1 08/25 19:43 Body Mass Index 24.98 (63.96 kg, 160.02 cm) bm8 08/25 19:43 Pain Scale: Adult bm8 NIH Stroke Scale Scores: 08/25 21:36 NIHSS Score: 0 rowan ED Course: 19:06 Patient arrived in ED. iw 19:44 Arm band placed on right wrist. bm8 20:04 Maurizio Nazario MD is Attending Physician. rowan 20:20 Patient has correct armband on for positive identification. Placed in gown. Bed in low ha1 position. Call light in reach. Side rails up X2. Provided Education on: LUGO INSERTION . 20:51 Blood Culture Adult (2) Sent. ha1 20:51 Lactate w/ 2H reflex if indic. Sent. ha1 20:51 Lipase Sent. ha1 20:51 Basic Metabolic Panel Sent. ha1 20:51 CBC with Diff Sent. ha1 20:51 LFT's Sent. ha1 20:51 Magnesium Sent. ha1 20:51 NT PRO-BNP Sent. ha1 20:51 PT-INR Sent. ha1 20:51 Troponin HS Sent. ha1 20:51 Inserted saline lock: 20 gauge in left antecubital area, using aseptic technique. Blood ha1 collected. Flushed with 10 mL NS. 21:03 XRAY Chest (1 view) In Process Unspecified. EDMS 21:18 Bobo Ruiz MD is Hospitalizing Provider. rowan 21:52 Chest Abd Pelvis Wo Con In Process Unspecified. EDMS 21:52 Head C Spine Mpr Wo Con In Process Unspecified. EDMS 23:27 Nayely Her, DARREN is Primary Nurse. al5 23:30 Triage completed. al5 23:30 No provider procedures requiring assistance completed. al5 08/26 01:00 Patient admitted, IV remains in place. ha1 Administered Medications: 08/25 23:27 Drug: foLIC Acid IVPB 1 mg IVPB once Route: IVPB; Site: left antecubital; al5 08/26 00:40 Follow up: Response: No adverse reaction; IV Status: Completed infusion 1 08/25 23:27 Drug: Banana Bag - (Multivitamin IV 1 amp, NS 0.9% IV 1000 ml, Thiamine IV 100 mg, al5 foLIC Acid IVPB 1 mg) IV at 100 ml/hr once Route: IV; Rate: 100 ml/hr; Site: left antecubital; 08/26 01:00 Follow up: Response: No adverse reaction; IV Status: Infusion continued upon admission ha1 08/25 23:27 Drug: Aspirin PO Chewable Tablet 162 mg PO once Route: PO; al5 08/26 00:00 Follow up: Response: No adverse reaction 1 00:37 Drug: NS 0.9% IV (30 ml/kg) 30 ml/kg IV at bolus once; Sepsis Protocol; to be given as al5 a bolus over 90 minutes {Note: per MD due to hx of CHF .} Route: IV; Rate: bolus; Site: left antecubital; 05:00 Follow up: Response: No adverse reaction; IV Status: Completed infusion ha1 00:37 Drug: Famotidine IVP 20 mg IVP once; dilute with 10 mL 0.9% NaCl; give over 2 minutes al5 Route: IVP; Site: left antecubital; 01:00 Follow up: Response: No adverse reaction ha1 00:37 Drug: Rocephin IV 1 grams IV at per protocol once; Given slow IV push per pharmacy al5 instructions Route: IV; Rate: per protocol; Site: left antecubital; 01:00 Follow up: Response: No adverse reaction; IV Status: Completed infusion ha1 Medication: 08/25 23:30 VIS not applicable for this client. al5 Outcome: 21:18 Decision to Hospitalize by Provider. rowan 08/26 01:00 Admitted to ER Hold. Please see [email or web address] for further documentation. ha1 Condition: stable Instructed on the need for admit, Demonstrated understanding of instructions, 12:56 Patient left the ED. cm10 NIH Stroke Scale - NIH Stroke Score Date: 08/25/2024 Time: 21:36 Total Score = 0 10. Dysarthria (speech clarity - read or repeat words) - 0(Normal) 11. Extinction and Inattention (visual/tactile/auditory/spatial/personal) - 0(No abnormality) 1a. Level of Consciousness (LOC) - 0(Alert) 1b. Level of Consciousness (LOC) (Month \T\ Age) - 0(Both) 1c. LOC Commands (Open \T\ Closes Eyes/Client Manager Large Law) - 0(Both) 2. Best Gaze (Lateral Gaze Paresis) - 0(Normal) 3. Visual Field Loss - 0(No visual loss) 4. Facial Palsy - 0(Normal) 5a. Left Arm: Motor (10-second hold) - 0(No drift) 5b. Right Arm: Motor (10-second hold) - 0(No drift) 6a. Left Leg: Motor (5-second hold - always test supine) - 0(No drift) 6b. Right Leg: Motor (5-second hold - always test supine) - 0(No drift) 7. Limb Ataxia (finger/nose \T\ heel/cabrera - test with eyes open) - 0(Absent) 8. Sensory Loss (pinprick arms/legs/face) - 0(Normal) 9. Best Language: Aphasia (description/naming/reading) - 0(No aphasia) Initials: rowan Signatures: Dispatcher [employer] Maurizio Kuhn MD MD cha Williams, Irene, RN Connie Frye RN RN ha1 Brigette Dow RN RN cm10 Greg Marx RN RN bm8 Nayely Her RN RN al5 Corrections: (The following items were deleted from the chart) 08/25 23:29 23:00 BP 118 / 2; Pulse 73bpm; Resp 14bpm; Pulse Ox 94%; Temp 92.7F; al5 al5 08/26 07:53 00:30 BP 127 / 7; Pulse 80bpm; Resp 13bpm; Pulse Ox 95% RA; Temp 95.0F; al5 ha1 08:01 08/25 21:00 Reassessment: Patient and/or family updated on plan of care and ha1 expected duration. Pain level reassessed. SPOKE TO FAMILY MEMBER TO INFORM OF PATIENT BEING AT THE ER, REQUESTED BY PATIENT ha1
--- NOTE | 2024-08-25 21:19 | EDPHYS ---
Physician Documentation [facility] Name: Audrey Rushing Age: 69 yrs Sex: Female : 1955 Arrival Date: 08/25/2024 Time: 19:01 Bed 23 Private MD: ED Physician Maurizio Nazario HPI: 08/25 21:13 This 69 yrs old Female presents to ER via Ambulatory with complaints of rowan Weakness. 21:13 The patient presents to the emergency department with weakness of the entire body, rowan generalized weakness. Onset: The symptoms/episode began/occurred 2 day(s) ago. Context: occurred at an unknown location. Associated signs and symptoms: The patient has no apparent associated signs or symptoms. Severity of symptoms: At their worst the symptoms were mild in the emergency department the symptoms are unchanged. Patient's baseline: Neuro: alert and fully oriented. Historical: - Allergies: 19:44 Talwin; bm8 19:44 TETRACYCLINES; bm8 - PMHx: 19:44 Bipolar disorder; Congestive heart failure; COPD (December 27); bm8 - PSHx: 19:44 hysterectomy; Tennis Elbow; bm8 - Immunization history:: Adult Immunizations up to date. - Infectious Disease History:: Denies. - Social history:: Smoking status: Patient reports the use of cigarette tobacco products. - Family history:: not pertinent. ROS: 21:14 Constitutional: Negative for fever, chills, and weight loss, Eyes: Negative for injury, rowan pain, redness, and discharge, ENT: Negative for injury, pain, and discharge, Neck: Negative for injury, pain, and swelling, Cardiovascular: Negative for chest pain, palpitations, and edema, Respiratory: Negative for shortness of breath, cough, wheezing, and pleuritic chest pain, Abdomen/GI: Negative for abdominal pain, nausea, vomiting, diarrhea, and constipation, Back: Negative for injury and pain, : Negative for injury, bleeding, discharge, and swelling, MS/Extremity: Negative for injury and deformity, Skin: Negative for injury, rash, and discoloration, Psych: Negative for depression, anxiety, suicide ideation, homicidal ideation, and hallucinations, Allergy/Immunology: Negative for hives, rash, and allergies, Endocrine: Negative for neck swelling, polydipsia, polyuria, polyphagia, and marked weight changes, Hematologic/Lymphatic: Negative for swollen nodes, abnormal bleeding, and unusual bruising, 21:14 Neuro: Positive for dizziness, weakness, Exam: 21:14 Constitutional: This is a well developed, well nourished patient who is awake, alert, rowan and in no acute distress. Head/Face: Normocephalic, atraumatic. Eyes: Pupils equal round and reactive to light, extra-ocular motions intact. Lids and lashes normal. Conjunctiva and sclera are non-icteric and not injected. Cornea within normal limits. Periorbital areas with no swelling, redness, or edema. ENT: Nares patent. No nasal discharge, no septal abnormalities noted. Tympanic membranes are normal and external auditory canals are clear. Oropharynx with no redness, swelling, or masses, exudates, or evidence of obstruction, uvula midline. Mucous membranes moist. Neck: Trachea midline, no thyromegaly or masses palpated, and no cervical lymphadenopathy. Supple, full range of motion without nuchal rigidity, or vertebral point tenderness. No Meningismus. Chest/axilla: Normal chest wall appearance and motion. Nontender with no deformity. No lesions are appreciated. Cardiovascular: Regular rate and rhythm with a normal S1 and S2. No gallops, murmurs, or rubs. Normal PMI, no JVD. No pulse deficits. Respiratory: Lungs have equal breath sounds bilaterally, clear to auscultation and percussion. No rales, rhonchi or wheezes noted. No increased work of breathing, no retractions or nasal flaring. Abdomen/GI: Soft, non-tender, with normal bowel sounds. No distension or tympany. No guarding or rebound. No evidence of tenderness throughout. Back: No spinal tenderness. No costovertebral tenderness. Full range of motion. Female : Normal external genitalia. Skin: Warm, dry with normal turgor. Normal color with no rashes, no lesions, and no evidence of cellulitis. MS/ Extremity: Pulses equal, no cyanosis. Neurovascular intact. Full, normal range of motion., bilateral aka Neuro: Awake and alert, GCS 15, oriented to person, place, time, and situation. Cranial nerves II-XII grossly intact. Motor strength 5/5 in all extremities. Sensory grossly intact. Cerebellar exam normal. Normal gait. Psych: Awake, alert, with orientation to person, place and time. Behavior, mood, and affect are within normal limits. 21:14 ECG was reviewed by the Attending Physician. Vital Signs: 19:43 BP 146 / 99; Pulse 70; Resp 18; Temp 94; Pulse Ox 100% ; Weight 63.96 kg; Height 5 ft. bm8 3 in. ; Pain 0/10; 20:00 BP 131 / 92; Pulse 73; Resp 17 S; Temp 92(R); Pulse Ox 98% on R/A; ha1 21:00 BP 124 / 65; Pulse 71; Resp 17 S; Temp 91.8; Pulse Ox 96% on R/A; ha1 22:56 BP 118 / 99; Pulse 82; Resp 17 S; Temp 92.1; Pulse Ox 96% on R/A; ha1 23:00 BP 118 / 82; Pulse 73; Resp 14; Temp 92.7; Pulse Ox 94% ; al5 08/26 00:00 BP 121 / 87; Pulse 79; Resp 13; Temp 94.8; Pulse Ox 94% on R/A; al5 00:30 BP 127 / 70; Pulse 80; Resp 13; Temp 95.0; Pulse Ox 95% on R/A; ha1 08/25 19:43 Body Mass Index 24.98 (63.96 kg, 160.02 cm) 8 08/25 19:43 Pain Scale: Adult bm8 NIH Stroke Scale Scores: 08/25 21:36 NIHSS Score: 0 rowan MDM: 20:04 Medical Screening Exam initiated rowan 21:15 Differential Diagnosis altered mental status, sepsis, flu. Differential Diagnosis: rowan aortic aneurysm, cardiac arrhythmia, cerebrovascular accident, drug effect, emotional response, GI bleed, idiopathic syncope, , pseudo seizure, seizure, sepsis, transient ischemic attack, vasovagal episode. Data reviewed: vital signs, nurses notes, EMS record, lab test result(s), EKG, radiologic studies, CT scan, plain films. Consideration of Admission/Observation Patient was admitted/placed on observation. Escalation of care including admission/observation considered. I considered the following discharge prescriptions or medication management in the emergency department Medications were administered in the Emergency Department. See MAR. Independent interpretation of the following test(s) in the Emergency Department EKG: See my EKG interpretation above. Test considered but Not performed: MRI: no mri brain. Care significantly affected by the following chronic conditions: Hypertension, Congestive Heart Failure, Chronic Obstructive Pulmonary Disease, Obesity, bipolar. 08/25 20:09 Order name: Basic Metabolic Panel; Complete Time: 21:35 [facility] 08/25 20:09 Order name: CBC with Diff; Complete Time: 21:21 [facility] 08/25 20:09 Order name: LFT's; Complete Time: 21:35 [facility] 08/25 20:09 Order name: Magnesium; Complete Time: 21:35 [facility] 08/25 20:09 Order name: NT PRO-BNP; Complete Time: 21:35 [facility] 08/25 20:09 Order name: PT-INR; Complete Time: 21:21 [facility] 08/25 20:09 Order name: Troponin HS; Complete Time: 21:35 [facility] 08/25 20:09 Order name: Lipase; Complete Time: 21:35 [facility] 08/25 20:09 Order name: Lactate w/ 2H reflex if indic.; Complete Time: 21:21 [facility] 08/25 20:09 Order name: Blood Culture Adult (2) [facility] 08/25 20:21 Order name: Glucose, Ancillary Testing; Complete Time: 21:21 [facility] 08/25 21:12 Order name: Urine Sodium Random; Complete Time: 22:41 [facility] 08/25 21:12 Order name: Urine Osmolality [facility] 08/25 21:12 Order name: Osmolality, Serum [facility] 08/25 22:04 Order name: CBC with Automated Diff [facility] 08/25 22:04 Order name: CBC with Automated Diff [facility] 08/25 22:04 Order name: Comprehensive Metabolic Panel [facility] 08/25 22:04 Order name: Comprehensive Metabolic Panel [facility] 08/26 07:41 Order name: Osmolality, Serum [facility] 08/25 20:09 Order name: XRAY Chest (1 view); Complete Time: 21:21 [facility] 08/25 21:37 Order name: Chest Abd Pelvis Wo Con; Complete Time: 22:41 [facility] 08/25 21:37 Order name: Head C Spine Mpr Wo Con; Complete Time: 22:41 [facility] 08/25 22:04 Order name: Physical Therapy Consult [facility] 08/25 20:09 Order name: Cardiac monitoring; Complete Time: 20:30 [facility] 08/25 20:09 Order name: EKG - Nurse/Tech; Complete Time: 20:30 [facility] 08/25 20:09 Order name: IV Saline Lock; Complete Time: 20:30 [facility] 08/25 20:09 Order name: Labs collected and sent; Complete Time: 20:30 [facility] 08/25 20:09 Order name: O2 Per Protocol; Complete Time: 20:30 [facility] 08/25 20:09 Order name: O2 Sat Monitoring; Complete Time: 20:30 [facility] 08/25 20:23 Order name: IV - Large Bore; Complete Time: :51 [facility] 08/25 20:25 Order name: Cespedes; Complete Time: : [facility] 08/25 20:25 Order name: Misc. Order: kristan morris; Complete Time: :51 [facility] EC:14 Rate is 72 beats/min. Rhythm is regular. QRS [place] is Normal. CO interval is normal. QRS rowan interval is normal. QT interval is normal. No Q waves. T waves are Normal. No ST changes noted. Clinical impression: NSR w/ Non-specific ST/T Changes and LVH. Administered Medications: 23:27 Drug: foLIC Acid IVPB 1 mg IVPB once Route: IVPB; Site: left antecubital; 08/26 00:40 Follow up: Response: No adverse reaction; IV Status: Completed infusion 08/25 23:27 Drug: Banana Bag - (Multivitamin IV 1 amp, NS 0.9% IV 1000 ml, Thiamine IV 100 mg, al5 foLIC Acid IVPB 1 mg) IV at 100 ml/hr once Route: IV; Rate: 100 ml/hr; Site: left antecubital; 08/26 01:00 Follow up: Response: No adverse reaction; IV Status: Infusion continued upon admission 08/25 23:27 Drug: Aspirin PO Chewable Tablet 162 mg PO once Route: PO; al5 08/26 00:00 Follow up: Response: No adverse reaction ha1 00:37 Drug: NS 0.9% IV (30 ml/kg) 30 ml/kg IV at bolus once; Sepsis Protocol; to be given as al5 a bolus over 90 minutes {Note: per MD due to hx of CHF .} Route: IV; Rate: bolus; Site: left antecubital; 05:00 Follow up: Response: No adverse reaction; IV Status: Completed infusion ha1 00:37 Drug: Famotidine IVP 20 mg IVP once; dilute with 10 mL 0.9% NaCl; give over 2 minutes al5 Route: IVP; Site: left antecubital; 01:00 Follow up: Response: No adverse reaction ha1 00:37 Drug: Rocephin IV 1 grams IV at per protocol once; Given slow IV push per pharmacy al5 instructions Route: IV; Rate: per protocol; Site: left antecubital; 01:00 Follow up: Response: No adverse reaction; IV Status: Completed infusion ha1 Disposition Summary: 08/25/24 21:18 Hospitalization Ordered Notes: Hospitalization Status: Inpatient Admission rowan Provider: Bobo Ruiz rowan Condition: Fair rowan Problem: new rowan Symptoms: have improved rowan Bed/Room Type: Standard rowan Location: Telemetry/MedSurg (Inpatient)(08/26/24 11:59) bd Room Assignment: 405(08/26/24 11:59) bd Diagnosis - Weakness rowan - Altered mental status, unspecified rowan - Hypothermia, initial encounter rowan - Hypo-osmolality and hyponatremia rowan Forms: - Medication Reconciliation Form rowan - SBAR form rowan - Leadership Thank You Letter [facility] NIH Stroke Scale - NIH Stroke Score Date: 08/25/2024 Time: 21:36 Total Score = 0 10. Dysarthria (speech clarity - read or repeat words) - 0(Normal) 11. Extinction and Inattention (visual/tactile/auditory/spatial/personal) - 0(No abnormality) 1a. Level of Consciousness (LOC) - 0(Alert) 1b. Level of Consciousness (LOC) (Month \T\ Age) - 0(Both) 1c. LOC Commands (Open \T\ Closes Eyes/Reading Instructor) - 0(Both) 2. Best Gaze (Lateral Gaze Paresis) - 0(Normal) 3. Visual Field Loss - 0(No visual loss) 4. Facial Palsy - 0(Normal) 5a. Left Arm: Motor (10-second hold) - 0(No drift) 5b. Right Arm: Motor (10-second hold) - 0(No drift) 6a. Left Leg: Motor (5-second hold - always test supine) - 0(No drift) 6b. Right Leg: Motor (5-second hold - always test supine) - 0(No drift) 7. Limb Ataxia (finger/nose \T\ heel/cabrera - test with eyes open) - 0(Absent) 8. Sensory Loss (pinprick arms/legs/face) - 0(Normal) 9. Best Language: Aphasia (description/naming/reading) - 0(No aphasia) Initials: [facility] Signatures: Dispatcher [employer] EDMS Alejandra Johnson Corey, MD MD cha Calcote, Vanessa RN RN vc1 Greg Marx RN RN bm8 Nayely Her RN RN al5 Connie Hoff RN ha1 Corrections: (The following items were deleted from the chart) 08/25 20:09 20:09 Chest Single View+RAD.RAD.BRZ ordered. EDMS EDMS 21:37 21:12 Head C Spine Cap Wo Con+CT.RAD.BRZ ordered. EDMS EDMS 22:43 22:43 Urinalysis+U.LAB.BRZ ordered. EDMS EDMS 08/26 00:43 08/25 21:18 Telemetry/MedSurg (Inpatient) rowan vc1 08/26 00:43 08/25 21:18 rowan vc1 08/26 11:59 00:43 [facility] ER HOLD vc1 bd 11:59 00:43 ERHOLD- vc1 bd
[2024-08-25 21:32] LABS: Bilirubin Direct < 0.2 mg/dL (0-0.2)
--- NOTE | 2024-08-25 21:56 | RAD REPORT ---
EXAM: CT brain without contrast HISTORY: PAIN COMPARISON: None TECHNIQUE: Multiple contiguous axial images were obtained and a CT of the brain without contrast. Sag ittal and coronal reformats were performed. One or more of the following dose reduction techniques were used: Automated exposure control, adjust ment of the mA and/or kV according to patient size, and/or iterative reconstruction. FINDINGS: No evidence of hydrocephalus, intracranial hemorrhage, or extra-axial fluid collection. Mild brain atrophy. No evidence of midline shift or areas of brain edema. The calvarium is intact. The visualized paranasal sinuses and mastoid air cells are essentially clear . IMPRESSION: No evidence of acute intracranial abnormality. EXAM: CT of the cervical spine without contrast HISTORY: Neck pain, injury PAIN TECHNIQUE: Multiple contiguous axial images were obtained in a CT of the cervical spine without contr ast. Sagittal and coronal reformats were performed. FINDINGS: The vertebral bodies demonstrate normal height and alignment. No evidence of acute fracture or subluxation.. No degenerative changes are present. No prevertebral soft tissue swelling is seen. Mild mid cervical facet hypertrophy. Both lung apices are emphysematous. IMPRESSION: No evidence of acute osseous abnormality of the cervical spine.
[2024-08-25] MEDS ORDERED: ALBUTEROL 2.5 MG/3 ML NEB SOL NEB PRN (21:57)
[2024-08-25] MEDS ORDERED: ONDANSETRON 4 MG/2 ML VIAL IV PRN (21:59)
[2024-08-25] MEDS ORDERED: ALPRAZOLAM 0.25 MG TABLET PO PRN (21:59)
[2024-08-25] MEDS ORDERED: ACETAMINOPHEN 500 MG TAB PO PRN (21:59)
[2024-08-25] MEDS: NA CHLORIDE 0.9% 1,000 ML IV SCH (22:00)
--- NOTE | 2024-08-25 22:03 | P.HP ---
Patient History Date of Service: 08/26/24 Reason for admission: Weakness History of Present Illness: Is a pleasant 69-year-old female who is a poor historian with a past medical history of bipolar disorder, COPD presenting with weakness. She states she was in her apartment earlier today when she felt as if she could not get up. Associated symptoms include shortness of breath and subjective fevers. She denies chest pain, vomiting, diarrhea. Allergies Tetracyclines Allergy (Verified 08/23/22 21:24) Nausea/Vomiting Home Medications: Atomoxetine HCl [Strattera] 40 mg PO DAILY 08/23/22 Brimonidine Tartrate/Timolol [Combigan 0.2%-0.5% Eye Drops] 2 drop EACH EYE DAILY 08/23/22 Dorzolamide HCl/Pf [Dorzolamide 2% Eye Drop] 2 drops EACH EYE DAILY 08/23/22 Paliperidone Palmitate [Invega Trinza] 234 mg IM SEECOM 08/23/22 - Past Medical/Surgical History Diabetic: No -: bipolar -: emphysema -: cataract sx -: tennis elbow - Social History Alcohol use: No CD- Drugs: No Caffeine use: No Review of Systems General: Weakness Eyes: Unremarkable ENT: Unremarkable Respiratory: Shortness of Breath, Unremarkable Cardiovascular: Unremarkable Gastrointestinal: Unremarkable Genitourinary: Unremarkable Musculoskeletal: Unremarkable Integumentary: Unremarkable Neurological: Unremarkable Lymphatics: Unremarkable Physical Examination - Physical Exam General: In no apparent distress HEENT: Normocephalic Neck: Supple Respiratory: Clear to auscultation bilaterally Cardiovascular: No edema Capillary refill: <2 Seconds Gastrointestinal: Normal bowel sounds Musculoskeletal: No clubbing Integumentary: No rashes Neurological: Normal strength at 5/5 x4 extr Lymphatics: No axilla or inguinal lymphadenopathy - Studies Laboratory Data (last 24 hrs) 08/25/24 08/25/24 08/25/24 20:28 20:28 20:28 WBC 4.10 L Hgb 13.0 Hct 36.7 Plt Count 171 PT 11.2 INR 0.98 Sodium 126 L Potassium 3.7 BUN 10 Creatinine 0.50 L Glucose 88 Magnesium 1.8 Total Bilirubin 0.2 AST 19 ALT 30 Alkaline Phosphatase 114 Lipase 135 H Assessment and Plan - Plan Weakness Hyponatremia Bipolar disorder COPD Glaucoma Admit to floor Start IV normal saline Recheck sodium level in the a.m. PT / OT consult Hold paliperidone due to concern for SIADH Resume brimonidine and dorzolamide Check serum osmole, low urine osmole Urinalysis pending DVT prophylaxis with Lovenox - Advance Directives Does patient have a Living Will: No Does patient have a Durable POA for Healthcare: No
--- NOTE | 2024-08-25 22:13 | RAD REPORT ---
EXAM: CT CHEST, ABDOMEN AND PELVIS WITHOUT CONTRAST CLINICAL INDICATION: COLD FEET TECHNIQUE: CT chest, abdomen and pelvis was performed without contrast, as per department protocol. A xial, sagittal and coronal reconstructions were obtained. One or more of the following dose reduction techniques were used: Automated exposure control, adjustment of the mA and/or kV according to patient size, and/or iterative reconstruction. Unless otherwise specified, incidental findings do not require dedicated imaging follow-up. Examination is limited by the lack of intravenous contrast material. COMPARISON: 10/31/2023 FINDINGS: LUNGS: Mild to moderate atelectasis posterior right lung base. Small nodule measuring 6 mm in the sup erior segment right lower lobe with slight spiculated margins noted. Mild COPD. PLEURA: No pleural effusion. No pneumothorax. MEDIASTINUM AND LYMPH NODES: No mediastinal mass or fluid collection. Normal size mediastinal, hilar, and axillary lymph nodes. OSSEOUS STRUCTURES AND CHEST WALL: Intact. LIVER: Normal in size and contour. No focal lesion or biliary dilatation. Grossly unremarkable gallbl adder. PANCREAS: No mass, ductal dilation, or vera-pancreatic fluid. SPLEEN: Normal size. No focal lesion. ADRENALS: Normal; no mass. KIDNEYS: Normal size and contour. No hydronephrosis. 2 cm benign right renal cyst. URINARY BLADDER: Cespedes catheter is present urinary bladder. Mild air is present in the bladder. Mild anterior bladder wall thickening. GASTROINTESTINAL TRACT: No bowel obstruction, free air, significant free fluid or abscess. Prominen t stool is retained throughout the colon. APPENDIX: Normal appendix. LYMPH NODES: No lymphadenopathy. MUSCULOSKELETAL: Mild anterolisthesis L5 on S1. OTHER: Aortoiliac atherosclerosis. IMPRESSION: No acute abnormalities seen in the chest, abdomen or pelvis. 6 mm nodule superior segment right lower lobe. Non-contrast chest CT at 6-12 months, then non-contrast chest CT at 18-24 months. Note: These guidelines do not apply to patients younger than 35 years, immunocompromised patients, an d patients with cancer. F/u in patients with significant comorbidities as clinically warranted. For lung cancer screening, adhere to Lung-RADS guidelines. Reference: Radiology. 2017 Nov; 284(1):228-243
[2024-08-25] MEDS ORDERED: ASPIRIN 81 MG CHEWABLE TABLET ONE (23:16)
[2024-08-25] MEDS ORDERED: THIAMINE 200 MG/2 ML INJ ONE (23:16)
[2024-08-25] MEDS ORDERED: MULTIVITAMINS 10 ML VIAL (INJ) IV ONE (23:16)
[2024-08-25] MEDS ORDERED: FOLIC ACID 5 MG/ML VIAL ONE (23:17)
[2024-08-25] MEDS ORDERED: NA CHLORIDE 0.9% 1,000 ML ONE (23:17)
[2024-08-26] MEDS ORDERED: FAMOTIDINE 20 MG/2 ML VIAL IV ONE (00:30)
[2024-08-26] MEDS ORDERED: CEFTRIAXONE 1000 MG/VIAL ONE (00:30)
[2024-08-26] MEDS ORDERED: NA CHLORIDE 0.9% 1,000 ML ONE ×2 (00:30→08:56)
[2024-08-26 01:26] VITALS: BMI 25.0
[2024-08-26 06:05] LABS: Absolute Lymphocytes (CBC) 1.1 K/uL (0.7-4.9); Absolute Monocytes 0.3 K/uL (0.1-1.3); Absolute Neutrophil 1.8 K/uL (1.8-8.0); Basophils % 0.6 % (0-1.3); Eosinophils % 1.1 % (0-4.4); Hematocrit 33.3 % (36.0-45.0); Hemoglobin 11.6 g/dL (12.0-15.0); MCH 31.4 pg (27.0-35.0); MCHC 34.8 g/dL (32.0-36.0); MCV 90.4 fL (80-100); MPV 7.1 fL (7.6-11.3); Monocytes % 9.4 % (3.3-12.3); Neutrophils % 55.9 % (41.7-73.7); Nucleated Red Blood Cells % 0.1 % (0-0); Platelets 168 thou/uL (152-406); RBC Red Blood Cell Count 3.69 M/uL (3.86-4.86); Red Cell Distribution Width 16.5 % (12.1-15.2)
[2024-08-26 06:31] LABS: ALT/SGPT 24 U/L (13-56); AST/SGOT 16 U/L (15-37); Albumin 3.2 g/dL (3.4-5.0); Albumin/Globulin Ratio 1.1 (1.1-1.8); Alkaline Phosphatase 99 U/L (45-117); BUN Blood Urea Nitrogen 8 mg/dL (7-18); Bicarbonate 25 mEq/L (21-32); Glomerular Filtration Rate 100 ml/min (=/>90); Glucose Level 104 mg/dL (74-106); Protein, Total 6.2 g/dL (6.4-8.2); Sodium Level 138 mEq/L (136-145)
[2024-08-26 06:45] LABS: Bilirubin Total < 0.2 mg/dL (0.2-1.0)
[2024-08-26] MEDS: DORZOLAMIDE 2% OPTH (10 ML) EACH EYE SCH (09:00)
[2024-08-26] MEDS: ATOMOXETINE HCL 40 MG PO SCH (09:00)
[2024-08-26] MEDS ORDERED: FLU (Fluarix Triv) TS24-25(6MOS UP)/PF 45 MCG/0.5 ML Syringe IM ONE (11:30)
[2024-08-26] MEDS ORDERED: PNEUMOCOCCAL VACCINE 0.5 ML IMVAC ONE (12:00)
[2024-08-26 12:15] VITALS: TEMP 97.6
[2024-08-26 13:10] VITALS: O2SAT 95
[2024-08-26 16:32] VITALS: BP 144/86
--- NOTE | 2024-08-26 17:43 | P.DS ---
Admission Date: 08/25/24 Discharge Date: 08/26/24 Reason for Admission: Weakness Hospital Course: Diagnosis Generalized weakness Hyponatremia Bipolar disorder COPD Glaucoma Patient presented with sudden onset of weakness and stated she felt as if she could not get up. Patient was brought to the emergency department by EMS where had CT scans of the head and cervical spine when unremarkable did not show any acute disease. CT chest showed a 6 mm spiculated pulmonary nodule. CT abdomen and pelvis were unremarkable. Other significant findings included sodium level of 124 indicating hyponatremia. Patient's symptoms deemed secondary to the low sodium. She was hospitalized for further management. Patient was admitted to the medical floor and hydrated with IV normal saline. Her sodium level improved to normal. Patient was evaluated by physical therapy and she was able to ambulate independently. She had a Cespedes catheter placed which was removed within 24 hours. Patient voided after Cespedes catheter removal. Case discussed with neurology Dr. Nichole. Patient advised to follow-up with Dr. Nichole as outpatient to undergo an EEG and further evaluation. She has been made aware and she voiced understanding. Patient also noted to have a spiculated pulmonary nodule and recommend a PET scan to further evaluate. She may have a repeat CT chest within 6 months to follow the course of the pulmonary nodule. Patient is on paliperidone injection and atomoxetine which can contribute to the low sodium. Patient advised to follow-up with her PCP regarding medication changes as needed. Free water restriction up to 1500 mL/day advised. Patient voiced understanding. Repeat blood chemistry within 1 to 2 weeks is recommended to follow-up hyponatremia. Vital Signs/Physical Exam: Temp Pulse Resp BP Pulse Ox 97.6 F 90 16 144/86 H 100 08/26/24 16:00 08/26/24 16:00 08/26/24 16:00 08/26/24 16:08/26/24 16:00 General: Alert, In no apparent distress, Oriented x3 HEENT: Mucous membr. moist/pink Neck: Supple, JVD not distended Respiratory: Clear to auscultation bilaterally, Normal air movement Cardiovascular: No edema, Regular rate/rhythm, Normal S1 S2 Gastrointestinal: Soft and benign, Non-distended, No tenderness Musculoskeletal: No swelling Integumentary: No rashes, No cyanosis Neurological: Normal speech, Normal strength at 5/5 x4 extr, Cranial nerves 3-12 intact Laboratory Data at Discharge: WBC 3.20 thou/uL (4.3-10.9) L 08/26/24 05:53 Hgb 11.6 g/dL (12.0-15.0) L D 08/26/24 05:53 Hct 33.3 % (36.0-45.0) L 08/26/24 05:53 Plt Count 168 thou/uL (152-406) 08/26/24 05:53 PT 11.2 SECONDS (10-13.0) 08/25/24 20:28 INR 0.98 08/25/24 20:28 Sodium 138 mEq/L (136-145) D 08/26/24 05:53 Potassium 4.0 mEq/L (3.5-5.1) 08/26/24 05:53 BUN 8 mg/dL (7-18) 08/26/24 05:53 Creatinine 0.56 mg/dL (0.55-1.02) 08/26/24 05:53 Glucose 104 mg/dL (74-106) 08/26/24 05:53 Magnesium 1.8 mg/dL (1.6-2.4) 08/25/24 20:28 Total Bilirubin < 0.2 mg/dL (0.2-1.0) L 08/26/24 05:53 AST 16 U/L (15-37) 08/26/24 05:53 ALT 24 U/L (13-56) 08/26/24 05:53 Alkaline Phosphatase 99 U/L (45-117) 08/26/24 05:53 Lipase 135 U/L (13-75) H 08/25/24 20:28 Home Medications: Atomoxetine HCl [Strattera] 40 mg PO DAILY 08/23/22 Brimonidine Tartrate/Timolol [Combigan 0.2%-0.5% Eye Drops] 2 drop EACH EYE DAILY 08/23/22 Dorzolamide HCl/Pf [Dorzolamide 2% Eye Drop] 2 drops EACH EYE DAILY 08/23/22 Paliperidone Palmitate [Invega Trinza] 234 mg IM SEECOM 08/23/22 Physician Discharge Instructions: Patient presented with sudden onset of weakness and stated she felt as if she could not get up. Patient was brought to the emergency department by EMS where had CT scans of the head and cervical spine when unremarkable did not show any acute disease. CT chest showed a 6 mm spiculated pulmonary nodule. CT abdomen and pelvis were unremarkable. Other significant findings included sodium level of 124 indicating hyponatremia. Patient's symptoms deemed secondary to the low sodium. She was hospitalized for further management. Patient was admitted to the medical floor and hydrated with IV normal saline. Her sodium level improved to normal. Patient was evaluated by physical therapy and she was able to ambulate independently. She had a Cespedes catheter placed which was removed within 24 hours. Patient voided after Cespedes catheter removal. Case discussed with neurology Dr. Nichole. Patient advised to follow-up with Dr. Nichole as outpatient to undergo an EEG and further evaluation. She has been made aware and she voiced understanding. Patient also noted to have a spiculated pulmonary nodule and recommend a PET scan to further evaluate. She may have a repeat CT chest within 6 months to follow the course of the pulmonary nodule. Patient is on paliperidone injection and atomoxetine which can contribute to the low sodium. Patient advised to follow-up with her PCP regarding medication changes as needed. Free water restriction up to 1500 mL/day advised. Patient voiced understanding. Repeat blood chemistry within 1 to 2 weeks is recommended to follow-up hyponatremia. Diet: Regular Activity: Fall precautions Followup: Jonathan Nichole MD [ASSOCIATE-ACTIVE - CAN ADMIT] - 1 Week NONE,NONE [Primary Care Provider] - 1 Week Time spent managing pt's care (in minutes): 32
== END 2024-08-26 18:00 | disposition home or self-care (01) ==
LOC: ER 19:01 → INTOOBSV 21:57 → ERHOLD 21:57 → 4TH 08-26 12:37
PROVIDERS: ADMIT Family Medicine; ATTEND Internal Medicine
DX: R53.1 Weakness (principal); T68.XXXA Hypothermia, initial encounter; R41.82 Altered mental status, unspecified; J44.9 Chronic obstructive pulmonary disease, unspecified; F31.9 Bipolar disorder, unspecified; E87.1 Hypo-osmolality and hyponatremia; H40.9 Unspecified glaucoma; Z88.1 Allergy status to other antibiotic agents
CPT/HCPCS: 36415; 70450; 71045; 71250; 72125; 74176; 80048; 80053; 80076; 82947; 83605; 83690; 83735; 83880; 83930; 83935; 84300; 84484; 85025; 85610; 87040; 93005; 97161; G0378; J0696; J3411; J7030

== ENCOUNTER 2024-09-16 16:35 | Emergency (ER) | payer OTHER, MEDICAID ==
[2024-09-16 17:48] LABS: Absolute Lymphocytes (CBC) 0.8 K/uL (0.7-4.9); Absolute Monocytes 0.2 K/uL (0.1-1.3); Absolute Neutrophil 3.3 K/uL (1.8-8.0); Basophils % 0.6 % (0-1.3); Eosinophils % 0.3 % (0-4.4); Hematocrit 29.6 % (36.0-45.0); Hemoglobin 10.4 g/dL (12.0-15.0); Lymphocytes % 18.9 % (15.3-44.8); MCH 31.2 pg (27.0-35.0); MPV 8.4 fL (7.6-11.3); Monocytes % 4.9 % (3.3-12.3); Neutrophils % 75.3 % (41.7-73.7); Nucleated Red Blood Cells % 0.1 % (0-0); Platelets 111 thou/uL (152-406); RBC Red Blood Cell Count 3.32 M/uL (3.86-4.86); Red Cell Distribution Width 16.5 % (12.1-15.2)
--- NOTE | 2024-09-16 17:49 | RAD REPORT ---
EXAMINATION: Ct Stroke Brain Wo Cont CLINICAL INDICATION: Female, 69 years old.STROKE ALERT TECHNIQUE: Axial CT images from the skull base to the vertex without intravenous contrast using a str michelle protocol. Coronal and sagittal reformatted images were created from the data set. One or more of the following dose reduction techniques were used: Automated exposure control, adjustment of the m A and/or kV according to patient size, and/or iterative reconstruction. Unless otherwise specified, incidental findings do not require dedicated imaging follow-up. [id number]. COMPARISON: 02/21/2023 FINDINGS: INTRACRANIAL: No acute intracranial hemorrhage. No hydrocephalus. No mass effect or midline shift. Mi ld chronic small vessel ischemic changes. VASCULATURE: No visualized abnormalities in the arteries or dural venous sinuses. SCALP/SKULL: No calvarial fracture identified. No acute soft tissue abnormality. SINUSES: The visualized paranasal sinuses are mostly clear. No significant mastoid fluid. IMPRESSION: No acute intracranial abnormality. The findings were communicated to Dr. Hilliard on 09/16/2024 5:37 PM.
--- NOTE | 2024-09-16 17:51 | RAD REPORT ---
EXAMINATION: Neck Angio CLINICAL INDICATION: Female, 69 years old. dysarthria TECHNIQUE: Axial CT images were obtained from the aortic arch to the skull base after intravenous con trast utilizing angiographic protocol with 3D post-processing (maximum intensity projection images, volume rendered images and/or shaded surface rendered images). One or more of the following dose redu ction techniques were used: Automated exposure control, adjustment of the mA and/or kV according to patient size, and/or iterative reconstruction. Unless otherwise specified, incidental findings do not require dedicated imaging follow-up. [id number]. NASCET criteria used. Mild 0-49% stenosis Moderate 50-69% stenosis Severe 70-99% stenosis COMPARISON: No prior exam. FINDINGS: AORTA: Normal RIGHT: - CCA: Patent - ICA: Patent - ECA: Patent LEFT: - CCA: Patent - ICA: Patent - ECA: Patent VERTEBRAL: Left dominant. Both patent. SOFT TISSUE: Bilateral thyroid nodules noted, the largest measures 9 mm in the left lobe. These do no t require follow-up. The visualized lung apices are clear. Patulous thoracic esophagus which is partially imaged. 3D images confirm these findings. IMPRESSION: No arterial dissection or stenosis identified within the neck.
[2024-09-16 17:55] LABS: PT Prothrombin Time 12.2 SECONDS (10-13.0); PTT, Activated Partial Thromb 38.4 SECONDS (27.2-37.4); Protime INR 1.07
--- NOTE | 2024-09-16 18:00 | RAD REPORT ---
EXAMINATION: Head angio CLINICAL INDICATION: Female, 69 years old. STROKE ALERT TECHNIQUE: Axial CT images were obtained through the head after intravenous contrast utilizing angiog raphic protocol with 3D post-processing (maximum intensity projection images, volume rendered images and/or shaded surface rendered images). One or more of the following dose reduction technique s were used: Automated exposure control, adjustment of the mA and/or kV according to patient size, and/or iterative reconstruction. Unless otherwise specified, incidental findings do not require dedic ated imaging follow-up. COMPARISON: No prior exam. FINDINGS: RIGHT: ICA: Patent ALPHONSO: Patent MCA: Patent VAN DRIVER: Patent LEFT: ICA: Saccular 7 x 6 mm aneurysm arising from the left cavernous carotid. ALPHONSO: Patent MCA: Patent VAN DRIVER: Patent Vertebrobasilar: The vertebral arteries are patent. The basilar artery is normal in appearance. 3D images confirm these findings. IMPRESSION: No occlusion or stenosis identified. Saccular left cavernous ICA aneurysm measuring up to 7 mm. Recommend neurovascular consultation. The findings were communicated to Dr. Hilliard on 09/16/2024 5:56 PM.
[2024-09-16 18:13] LABS: ALT/SGPT 28 U/L (13-56); AST/SGOT 21 U/L (15-37); Albumin 2.8 g/dL (3.4-5.0); Alkaline Phosphatase 95 U/L (45-117); Anion Gap 9.9 mEq/L (5.0-15.0); BUN Blood Urea Nitrogen 16 mg/dL (7-18); Bicarbonate 24 mEq/L (21-32); Bilirubin Total 0.2 mg/dL (0.2-1.0); Globulin 2.8 g/dL (2.3-3.5); Glomerular Filtration Rate 104 ml/min (=/>90); Glucose Level 99 mg/dL (74-106); Magnesium 1.4 mg/dL (1.6-2.4); Potassium 3.9 mEq/L (3.5-5.1); Protein, Total 5.6 g/dL (6.4-8.2); Sodium Level 123 mEq/L (136-145); Troponin High Sensitivity 10.8 pg/mL (<58.9)
--- NOTE | 2024-09-16 18:34 | EDPHYS ---
Physician Documentation [facility] Name: Audrey Rushing Age: 69 yrs Sex: Female : 1955 Arrival Date: 09/16/2024 Time: 16:35 Bed 12 Private MD: ED Physician Maurizio Nazario HPI: 09/16 18:04 This 69 yrs old Female presents to ER via EMS with complaints of Dizziness. rt 18:04 Patient presents to the ED with dizziness, slurred speech which she states started last rt night. The patient states that she is no longer dizzy but continues to have slurred speech. Denies difficulty with her words, numbness, weakness. Denies other acute complaints at this time, symptoms are moderate in severity, no other aggravating or alleviating factors.. Historical: - Allergies: 17:05 Talwin; db 17:05 TETRACYCLINES; db - PMHx: 17:05 Bipolar disorder; Congestive heart failure; COPD (December 27); db - PSHx: 17:05 hysterectomy; Tennis Elbow; db - Immunization history:: Adult Immunizations unknown. - Infectious Disease History:: Denies. - Social history:: Smoking status: Patient denies any tobacco usage or history of. Smoking status: Patient reports the use of cigarette tobacco products, Patient denies any tobacco usage or history of. - Family history:: not pertinent. ROS: 18:04 Constitutional: Negative for fever, chills, and weight loss, Cardiovascular: Negative rt for chest pain, palpitations, and edema, Respiratory: Negative for shortness of breath, cough, wheezing, and pleuritic chest pain, Abdomen/GI: Negative for abdominal pain, nausea, vomiting, diarrhea, and constipation, MS/Extremity: Negative for injury and deformity, Skin: Negative for injury, rash, and discoloration, 18:04 Neuro: Positive for dizziness, speech changes, Exam: 18:04 ECG was reviewed by the Attending Physician. rt 18:04 Neuro: Dysarthria noted, no aphasia noted, cranial nerves II through XII intact, strength and sensation intact in upper and lower extremities, Vital Signs: 17:03 BP 124 / 85; Pulse 74; Resp 16; Temp 98.1; Pulse Ox 97% ; db 17:45 BP 129 / 95; Pulse 75; Resp 14; Pulse Ox 99% ; me1 18:00 BP 139 / 96; Pulse 74; Resp 14; Pulse Ox 99% ; me1 18:15 BP 140 / 98; Pulse 73; Resp 14; Pulse Ox 100% ; me1 18:44 BP 138 / 95; Pulse 78; Resp 15; Pulse Ox 98% on R/A; hb 19:15 BP 143 / 82; Pulse 70; Resp 18; Pulse Ox 100% ; me1 19:45 BP 138 / 95; Pulse 68; Resp 16; Pulse Ox 98% ; me1 20:15 BP 136 / 91; Pulse 72; Resp 15; Pulse Ox 99% ; me1 20:45 BP 133 / 80; Pulse 76; Resp 14; Pulse Ox 98% ; me1 21:15 BP 132 / 96; Pulse 78; Resp 16; Pulse Ox 98% ; me1 21:30 BP 135 / 91; Pulse 82; Resp 15; Temp 98.4; Pulse Ox 99% ; me1 NIH Stroke Scale Scores: 17:55 NIHSS Score: 1 [facility] [place]DM: 17:14 Medical Screening Exam initiated rt 19:45 Differential diagnosis: cardiac arrhythmia, CVA, generalized weakness, head injury, rowan hyperventilation, hypovolemia, idiopathic dizziness, near-syncope, , sepsis, syncope, TIA. Data reviewed: vital signs, nurses notes, lab test result(s), EKG, radiologic studies, CT scan, plain films. Consideration of Admission/Observation Escalation of care including admission/observation considered. I considered the following discharge prescriptions or medication management in the emergency department Medications were administered in the Emergency Department. See MAR. Independent interpretation of the following test(s) in the Emergency Department EKG: See my EKG interpretation above. Test considered but Not performed: MRI: no mri. Historians other than the Patient: Family Member: family well informed. Care significantly affected by the following chronic conditions: Congestive Heart Failure, Chronic Obstructive Pulmonary Disease, bipolar. 09/16 17:15 Order name: Basic Metabolic Panel; Complete Time: 18:43 rt 09/16 17:15 Order name: CBC with Diff; Complete Time: 18:06 rt 09/16 17:15 Order name: Hepatic Function; Complete Time: 18:43 rt 09/16 17:15 Order name: High Sensitivity Troponin; Complete Time: 18:44 rt 09/16 17:15 Order name: Magnesium; Complete Time: 18:44 rt 09/16 17:15 Order name: Protime (+inr); Complete Time: 18:06 rt 09/16 17:15 Order name: Ptt, Activated; Complete Time: 18:06 rt 09/16 18:07 Order name: Glucose, Ancillary Testing; Complete Time: 18:31 EDMS 09/16 18:19 Order name: CREATININE WHOLE BLOOD; Complete Time: 18:31 EDMS 09/16 18:45 Order name: Osmolality, Serum rowan 09/16 19:07 Order name: BMP: repeat rowan 09/16 17:15 Order name: CT Head Angio; Complete Time: 18:06 rt 09/16 17:15 Order name: CT Neck Angio; Complete Time: 18:06 rt 09/16 17:15 Order name: CT Stroke Brain w/o Contrast; Complete Time: 18:06 rt 09/16 17:15 Order name: Stroke CXR 1 View; Complete Time: 18:44 rt 09/16 17:15 Order name: EKG; Complete Time: 17:15 rt 09/16 17:15 Order name: Accucheck; Complete Time: 17:51 rt 09/16 17:15 Order name: Cardiac monitoring; Complete Time: 17:51 rt 09/16 17:15 Order name: EKG - Nurse/Tech; Complete Time: 17:51 rt 09/16 17:15 Order name: IV Saline Lock; Complete Time: 17:50 rt 09/16 17:15 Order name: Labs collected and sent; Complete Time: 17:50 rt 09/16 17:15 Order name: NPO; Complete Time: 17:50 rt 09/16 17:15 Order name: O2 Per Protocol; Complete Time: 17:50 rt 09/16 17:15 Order name: O2 Sat Monitoring; Complete Time: 17:50 rt 09/16 17:15 Order name: Stroke Swallow Screen; Complete Time: 18:30 rt EC:04 Rate is 72 beats/min. Rhythm is regular, Normal Sinus Rhythm with No ectopy. QRS [place] rt is Normal. PA interval is normal. QRS interval is normal. QT interval is normal. No Q waves. T waves are Normal. No ST changes noted. Interpreted by me. Administered Medications: 18:53 Drug: Aspirin PO Chewable Tablet 162 mg PO once Route: PO; me1 19:16 Follow up: Response: No adverse reaction me1 18:53 Drug: foLIC Acid IVPB 1 mg IVPB once Route: IVPB; Site: left antecubital; me1 18:54 Follow up: Response: No adverse reaction; IV Status: Completed infusion me1 18:54 Drug: Meclizine PO 25 mg PO once Route: PO; me1 19:16 Follow up: Response: No adverse reaction me1 19:02 Drug: NS 0.9% IV 500 ml 500 ml IV at 75 ml/hr once Volume: 500 ml; Route: IV; Rate: 75 me1 ml/hr; Site: left antecubital; 21:39 Follow up: IV Status: Completed infusion me1 19:32 Drug: NS 0.9% IV 250 ml IV at bolus once; to be given as a bolus over 30 minutes Route: me1 IV; Rate: bolus; Site: left antecubital; 19:45 Follow up: Response: No adverse reaction; IV Status: Completed infusion; IV Intake: me1 250ml 19:48 Drug: Magnesium Sulfate IVPB 2 grams IVPB once over 2 hrs Route: IVPB; Infused Over: 2 me1 hrs; Site: left antecubital; 21:39 Follow up: Response: No adverse reaction; IV Status: Completed infusion me1 Disposition Summary: 09/16/24 18:34 Transfer Ordered Notes: Transfer Location: [facility] rowan Reason: Higher level of care rowan Condition: Stable rowan Problem: new rowan Symptoms: have improved rowan Accepting Physician: to [facility](09/16/24 21:38) me1 Diagnosis - Dizziness and giddiness rowan - Cerebral aneurysm, nonruptured - Saccular 7 x 6 mm left cavernous carotid rowan - Aphasia rowan - Hypo-osmolality and hyponatremia rowan - Hypomagnesemia rowan Forms: - Medication Reconciliation Form rowan - SBAR form rowan NIH Stroke Scale - NIH Stroke Score Date: 09/16/2024 Time: 17:55 Total Score = 1 10. Dysarthria (speech clarity - read or repeat words) - 0(Normal) 11. Extinction and Inattention (visual/tactile/auditory/spatial/personal) - 0(No abnormality) 1a. Level of Consciousness (LOC) - 0(Alert) 1b. Level of Consciousness (LOC) (Month \T\ Age) - 0(Both) 1c. LOC Commands (Open \T\ Closes Eyes/Labor Economics Teacher) - 0(Both) 2. Best Gaze (Lateral Gaze Paresis) - 0(Normal) 3. Visual Field Loss - 0(No visual loss) 4. Facial Palsy - 0(Normal) 5a. Left Arm: Motor (10-second hold) - 0(No drift) 5b. Right Arm: Motor (10-second hold) - 0(No drift) 6a. Left Leg: Motor (5-second hold - always test supine) - 0(No drift) 6b. Right Leg: Motor (5-second hold - always test supine) - 0(No drift) 7. Limb Ataxia (finger/nose \T\ heel/cabrera - test with eyes open) - 0(Absent) 8. Sensory Loss (pinprick arms/legs/face) - 0(Normal) 9. Best Language: Aphasia (description/naming/reading) - 1(Mild to moderate aphasia) Initials: me1 Signatures: Dispatcher [employer] EDMS Maurizio Nazario MD MD cha Benton, Danielle, RN RN db Ifeanyi Hilliard MD MD rt Marizol Rae RN RN me1 Corrections: (The following items were deleted from the chart) 17:16 17:15 BASIC METABOLIC PANEL+C.LAB.BRZ ordered. EDMS EDMS 17:16 17:15 CBC+H.LAB.BRZ ordered. EDMS EDMS 17:16 17:15 HEPATIC FUNCTION+C.LAB.BRZ ordered. EDMS EDMS 17:16 17:15 Troponin High Sensitivity+C.LAB.BRZ ordered. EDMS EDMS 17:16 17:15 MAGNESIUM+C.LAB.BRZ ordered. EDMS EDMS 17:16 17:15 PROTIME (+INR)+COAG.LAB.BRZ ordered. EDMS EDMS 17:16 17:15 PTT, ACTIVATED+COAG.LAB.BRZ ordered. EDMS EDMS 18:46 18:[address] [facility] rowan rowan 19:46 [facility] rowan 21:38 19:[address] [facility] rowan me1
--- NOTE | 2024-09-16 18:34 | ER ---
Nurse's Notes [facility] Name: Audrey Rushing Age: 69 yrs Sex: Female : 1955 Arrival Date: 09/16/2024 Time: 16:35 Bed 12 Private MD: Diagnosis: Dizziness and giddiness;Cerebral aneurysm, nonruptured-Saccular 7 x 6 mm left cavernous carotid;Aphasia;Hypo-osmolality and hyponatremia;Hypomagnesemia Presentation: 09/16 17:03 Chief complaint: EMS states: DIZZINESS. GOT TO APARTMENT WAS DRINKING A COKE ZERO FELT db LIKE "WAS GOING TO BLOW UP". 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 Coronavirus screen: Client denies travel out of the [place] in the last 14 days. At this time, the client does not indicate any symptoms associated with coronavirus-19. Ebola Screen: Patient negative for fever greater than or equal to 101.5 degrees Fahrenheit, and additional compatible Ebola Virus Disease symptoms Patient denies exposure to infectious person. Patient denies travel to an Ebola-affected area in the 21 days before illness onset. No symptoms or risks identified at this time. Initial Sepsis Screen: Does the patient meet any 2 criteria? No. Patient's initial sepsis screen is negative. Does the patient have a suspected source of infection? No. Patient's initial sepsis screen is negative. Risk Assessment: Do you want to hurt yourself or someone else? Patient reports no desire to harm self or others. Onset of symptoms was September 16, 2024. 17:03 Method Of Arrival: EMS: [facility] db 17:03 Acuity: DHEERAJ 3 db 17:13 Acuity: DHEERAJ 2 hb Triage Assessment: 17:05 General: Appears in no apparent distress. comfortable, Behavior is calm, cooperative. db General: Appears Behavior is. Pain: Denies pain. Neuro: Level of Consciousness is awake, alert, obeys commands, Oriented to person, place, time, situation. Respiratory: Airway is patent Respiratory effort is even, unlabored, Respiratory pattern is regular, symmetrical. Historical: - Allergies: 17:05 [place]win; db 17:05 TETRACYCLINES; db - PMHx: 17:05 Bipolar disorder; Congestive heart failure; COPD (December 27); db - PSHx: 17:05 hysterectomy; Tennis Elbow; db - Immunization history:: Adult Immunizations unknown. - Infectious Disease History:: Denies. - Social history:: Smoking status: Patient denies any tobacco usage or history of. Smoking status: Patient reports the use of cigarette tobacco products, Patient denies any tobacco usage or history of. - Family history:: not pertinent. Screenin:[address] [facility] ED Fall Risk Assessment (Adult) History of falling in the last 3 months, me1 including since admission No falls in past 3 months (0 pts) Confusion or Disorientation No (0 pts) Intoxicated or Sedated No (0 pts) Impaired Gait No (0 pts) Mobility Assist Device Used No (0 pt) Altered Elimination No (0 pt) Score/Fall Risk Level 0 - 2 = Low Risk Maintained a safe environment, Provided non-skid footwear, Hourly rounding (assess needs \\T\\ fall precautionary measures) done. Abuse screen: Denies threats or abuse. Nutritional screening: No deficits noted. Tuberculosis screening: No symptoms or risk factors identified. 17:55 [place] Swallow Protocol Exclusion Criteria: Unable to remain alert for testing: No NPO me1 for medical/surgical reason by provider order No Head-of-bed restricted <30 degrees Brief Cognitive Screen What is your name? Normal, Where are you right now? Normal, What year is it? Normal. Oral Mechanism Examination Facial Symmetry: Normal, Motion: Normal, Lip Closure: Normal, 3 oz Water Swallow Challenge: Pt able to drink all water without stopping, coughing, choking or throat clearing: Yes Result: PASS MD Notified: Ifeanyi Hilliard MD. Assessment: 17:13 Reassessment: CODE STROKE CALLED, PT TO CT VIA WHEELCHAIR WITH TRAMAINE BANKS. hb 17:23 General: Appears in no apparent distress. well groomed, well developed, well nourished, me1 Behavior is calm, cooperative, appropriate for age, Reports. Pain: Denies pain. Neuro: Level of Consciousness is awake, alert, obeys commands, Oriented to person, place, time, situation, Appropriate for age. Neuro: Reports dizziness. Cardiovascular: Patient's skin is warm and dry. Respiratory: Airway is patent Respiratory effort is even, unlabored, Respiratory pattern is regular, symmetrical. GI: No signs and/or symptoms were reported involving the gastrointestinal system. : No signs and/or symptoms were reported regarding the genitourinary system. EENT: No signs and/or symptoms were reported regarding the EENT system. Derm: Skin is intact, is healthy with good turgor, Skin is pink, warm \\T\\ dry. Musculoskeletal: No signs and/or symptoms reported regarding the musculoskeletal system. 20:38 Reassessment: Report given to DARREN Figueroa at [place] [address], bed #9. me1 Vital Signs: 17:03 BP 124 / 85; Pulse 74; Resp 16; Temp 98.1; Pulse Ox 97% ; db 17:45 BP 129 / 95; Pulse 75; Resp 14; Pulse Ox 99% ; me1 18:00 BP 139 / 96; Pulse 74; Resp 14; Pulse Ox 99% ; me1 18:15 BP 140 / 98; Pulse 73; Resp 14; Pulse Ox 100% ; me1 18:44 BP 138 / 95; Pulse 78; Resp 15; Pulse Ox 98% on R/A; hb 19:15 BP 143 / 82; Pulse 70; Resp 18; Pulse Ox 100% ; me1 19:45 BP 138 / 95; Pulse 68; Resp 16; Pulse Ox 98% ; me1 20:15 BP 136 / 91; Pulse 72; Resp 15; Pulse Ox 99% ; me1 20:45 BP 133 / 80; Pulse 76; Resp 14; Pulse Ox 98% ; me1 21:15 BP 132 / 96; Pulse 78; Resp 16; Pulse Ox 98% ; me1 21:30 BP 135 / 91; Pulse 82; Resp 15; Temp 98.4; Pulse Ox 99% ; me1 NIH Stroke Scale Scores: 17:55 NIHSS Score: 1 nj1 ED Course: 17:03 Patient arrived in ED. db 17:05 Triage completed. db 17:05 Ifeanyi Hilliard MD is Attending Physician. rt 17:06 Arm band placed on Patient placed in waiting room. db 17:23 Patient has correct armband on for positive identification. Bed in low position. Call me1 light in reach. Side rails up X2. Provided Education on: POC. Verbalized understanding.. Client placed on continuous cardiac and pulse oximetry monitoring. NIBP monitoring applied. broach trouble shooter on. Pulse ox on. NIBP on. 17:23 No provider procedures requiring assistance completed. me1 17:44 CT Head Angio In Process Unspecified. EDMS 17:44 CT Neck Angio In Process Unspecified. EDMS 17:44 CT Stroke Brain w/o Contrast In Process Unspecified. EDMS 17:50 Marizol Rae, RN is Primary Nurse. me1 17:51 Initial lab(s) drawn, by nj, sent to lab. EKG done, by ED staff, reviewed by Ifeanyi Hilliard MD. Inserted saline lock: 22 gauge in left antecubital area, using aseptic technique. 18:15 Stroke CXR 1 View In Process Unspecified. EDMI 18:30 Attending Physician role handed off by Ifeanyi Hilliard MD [facility] 18:30 Maurizio Nazario MD is Attending Physician. [facility] 19:02 Osmolality, Serum Sent. me1 19:39 BMP: repeat Sent. [facility] 21:[address] Nazario called [facility] for transfer talked to Dalton Brunner 1949 Dr[address] Minh Jordan accepted pt 2005 Admin approval by Akira Haider to [address] [place] [address] bed 9 report number [phone] fax number [phone] called [facility] talked to Ham. 21:37 Patient transferred, IV remains in place. me1 Administered Medications: 18:53 Drug: Aspirin PO Chewable Tablet 162 mg PO once Route: PO; me1 19:16 Follow up: Response: No adverse reaction me1 18:53 Drug: foLIC Acid IVPB 1 mg IVPB once Route: IVPB; Site: left antecubital; me1 18:54 Follow up: Response: No adverse reaction; IV Status: Completed infusion me1 18:54 Drug: Meclizine PO 25 mg PO once Route: PO; me1 19:16 Follow up: Response: No adverse reaction me1 19:02 Drug: NS 0.9% IV 500 ml 500 ml IV at 75 ml/hr once Volume: 500 ml; Route: IV; Rate: 75 me1 ml/hr; Site: left antecubital; 21:39 Follow up: IV Status: Completed infusion me1 19:32 Drug: NS 0.9% IV 250 ml IV at bolus once; to be given as a bolus over 30 minutes Route: me1 IV; Rate: bolus; Site: left antecubital; 19:45 Follow up: Response: No adverse reaction; IV Status: Completed infusion; IV Intake: me1 250ml 19:48 Drug: Magnesium Sulfate IVPB 2 grams IVPB once over 2 hrs Route: IVPB; Infused Over: 2 me1 hrs; Site: left antecubital; 21:39 Follow up: Response: No adverse reaction; IV Status: Completed infusion me1 Medication: 17:23 VIS not applicable for this client. me1 Intake: 19:45 IV: 250ml; Total: 250ml. me1 Outcome: 18:34 ER care complete, transfer ordered by MD. donahue 21:37 Transferred by ground EMS to [facility], Note: community support associate. Report me1 called to DARREN Figueroa 21:37 Condition: stable 21:37 Instructed on the need for transfer, 21:38 Patient left the ED. me1 NIH Stroke Scale - NIH Stroke Score Date: 09/16/2024 Time: 17:55 Total Score = 1 10. Dysarthria (speech clarity - read or repeat words) - 0(Normal) 11. Extinction and Inattention (visual/tactile/auditory/spatial/personal) - 0(No abnormality) 1a. Level of Consciousness (LOC) - 0(Alert) 1b. Level of Consciousness (LOC) (Month \\T\\ Age) - 0(Both) 1c. LOC Commands (Open \\T\\ Closes Eyes/Rn Gynecology) - 0(Both) 2. Best Gaze (Lateral Gaze Paresis) - 0(Normal) 3. Visual Field Loss - 0(No visual loss) 4. Facial Palsy - 0(Normal) 5a. Left Arm: Motor (10-second hold) - 0(No drift) 5b. Right Arm: Motor (10-second hold) - 0(No drift) 6a. Left Leg: Motor (5-second hold - always test supine) - 0(No drift) 6b. Right Leg: Motor (5-second hold - always test supine) - 0(No drift) 7. Limb Ataxia (finger/nose \\T\\ heel/cabrera - test with eyes open) - 0(Absent) 8. Sensory Loss (pinprick arms/legs/face) - 0(Normal) 9. Best Language: Aphasia (description/naming/reading) - 1(Mild to moderate aphasia) Initials: me1 Signatures: Dispatcher [employer] EDMS Maurizio Nazario MD MD cha Pinkerton, Shawna sp Baxter, Heather, RN RN hb Benton, Danielle RN RN Ifeanyi Rao MD MD rt Marizol Rae RN RN me1 Corrections: (The following items were deleted from the chart) 17:23 17:03 Chief complaint: EMS states: DIZZINESS. GOT TO APARTMENT WAS DRINKING A me1 COKE ZERO FELT LIKE "WAS GOING TO BLOW UP". 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 db 21:38 21:37 Patient admitted, IV remains in place. me1 me1
--- NOTE | 2024-09-16 18:36 | RAD REPORT ---
EXAM: Chest Single View HISTORY: 69 years Female cva COMPARISON: 08/25/2024 FINDINGS: LUNGS/PLEURA: Increased mild basilar airspace disease bilaterally. CARDIAC/MEDIASTINUM: The cardiac silhouette is within normal limits. UPPER ABDOMEN: No significant abnormality. BONES: No acute abnormality. LINES/TUBES/OTHER: N/A IMPRESSION: Increased mild basilar airspace disease which could reflect atelectasis, pneumonia, or pneumonitis.
[2024-09-16 18:42] LABS: Bilirubin Direct < 0.2 mg/dL (0-0.2)
[2024-09-16] MEDS ORDERED: ASPIRIN 81 MG CHEWABLE TABLET ONE (18:50)
[2024-09-16] MEDS ORDERED: MECLIZINE HCL 12.5 MG TAB ONE (18:50)
[2024-09-16] MEDS ORDERED: FOLIC ACID 5 MG/ML VIAL ONE (18:51)
[2024-09-16] MEDS ORDERED: NA CHLORIDE 0.9% 500 ML ONE (18:58)
[2024-09-16] MEDS ORDERED: Magnesium Sulfate 2gm IVPB 2 G/50 ML BAG IV ONE (19:47)
[2024-09-16 19:58] LABS: Anion Gap 9.2 mEq/L (5.0-15.0); Potassium 4.2 mEq/L (3.5-5.1)
[2024-09-16 21:58] VITALS: BP 135/91; TEMP 98.4; O2SAT 99
--- NOTE | 2024-09-17 11:40 | EKG ---
Test Date: 2024-09-16 Test Time: 17:42:18 [employer] Business Analyst: MEASUREMENT RESULTS: Intervals: Rate: 72 UT: 208 QRSD: 82 QT: 402 QTc: 440 [place]: P: -3 UT: 208 QRS: 14 T: -10 INTERPRETIVE STATEMENTS: Normal sinus rhythm Normal ECG Compared to ECG 08/25/2024 20:29:13 Left ventricular hypertrophy no longer present Electronically Signed On 09-17-24 11:38:48 CDT by Teo Bourne
== END 2024-09-16 21:38 | disposition short-term general hospital (02) ==
LOC: ER 16:35
DX: I67.1 Cerebral aneurysm, nonruptured (principal); R47.01 Aphasia; E87.1 Hypo-osmolality and hyponatremia; E83.42 Hypomagnesemia; I50.9 Heart failure, unspecified; J44.9 Chronic obstructive pulmonary disease, unspecified
CPT/HCPCS: 96365; 96361; 93005; 85025; 80048 ×2; 36415; 83735; 85610; 82565; 82947; 80076; 85730; 84484; 83930; 70496; 70498; 70450; 71045; 96375; 99285; 96366; Q9967; J8597; J3475; J7040